=== PATIENT | male | born 1935 | race Asian ===

== ENCOUNTER 2020-03-31 19:33 | Inpatient (IN) | payer OTHER ==
[~2020-03-31] VITALS: Ht 170.2 cm; Wt 60.3 kg
[2020-03-31] MEDS ORDERED: METF-960 PO (19:39)
[2020-03-31] MEDS ORDERED: AMLO2.5T96 PO (19:39)
[2020-03-31] MEDS ORDERED: LOSA50TA37 PO (19:39)
[2020-03-31] MEDS ORDERED: ACETAMINOPHEN 500 MG TABLET PO ONE (20:30)
[2020-03-31 20:45] LABS: COVID AG,FIA SOURCE NASOPHARYNGEAL
[2020-03-31 21:24] LABS: INFLUENZA TYPE A NEGATIVE FOR TYPE A (NEGATIVE); INFLUENZA TYPE B NEGATIVE FOR TYPE B (NEGATIVE)
[2020-04-01 00:37] LABS: BASOPHILS % (AUTO) 0.8 % (0.0-2.0); EOSINOPHILS % (AUTO) 0.1 % (1.0-6.0); HEMATOCRIT 33.3 % (41-53); HEMOGLOBIN 11.9 g/dL (13.5-17.5); LYMPHOCYTES # (AUTO) 0.8 K/uL (1.0-4.8); MEAN CORPUSCULAR HGB CONC 35.6 G/dL (31.0-37.0); MEAN CORPUSCULAR VOLUME 79 fL (80-100); MONOCYTES # (AUTO) 0.5 K/uL (0.1-1.0); NEUTROPHILS # (AUTO) 3.4 K/uL (1.8-7.7); NEUTROPHILS % (AUTO) 72.1 % (40.0-70.0); RED BLOOD CELL COUNT(AUTO) 4.23 MIL/uL (4.50-5.90); RED CELL DISTRIBUTION WIDTH 13.6 % (11.5-14.5)
[2020-04-01 00:40] LABS: CALCIUM, TOTAL 8.4 mg/dL (8.8-10.5); CREATININE 1.23 mg/dL (0.60-1.30); POTASSIUM 3.3 mmol/L (3.5-5.1)
[2020-04-01 00:49] LABS: ALBUMIN 3.1 g/dL (3.4-5.0); BILIRUBIN,TOTAL 0.8 mg/dL (0.1-1.0); TOTAL PROTEIN, SERUM 7.1 g/dL (6.4-8.2)
[2020-04-01 00:56] LABS: PLATELET COUNT (AUTO) 70 K/uL (150-450)
[2020-04-01] MEDS ORDERED: DEXAMETHASONE SOD PHOS 4 MG/ML VIAL IVP ONE (01:45)
[2020-04-01 02:24] LABS: ALBUMIN 3.4 g/dL (3.4-5.0); BILIRUBIN,TOTAL 0.8 mg/dL (0.1-1.0); C-REACTIVE PROTEIN QUANT 7.13 mg/dL (0.00-0.30); CALCIUM, TOTAL 8.3 mg/dL (8.8-10.5); CREATININE 1.35 mg/dL (0.60-1.30); POTASSIUM 3.5 mmol/L (3.5-5.1); TOTAL PROTEIN, SERUM 6.7 g/dL (6.4-8.2)
[2020-04-01] MEDS ORDERED: ONDANSETRON HCL 4 MG/2 ML VIAL IVP PRN ×2 (04:45→14:45)
[2020-04-01 05:37] VITALS: BP 144/78
[2020-04-01 08:10] VITALS: BP 122/58
[2020-04-01 11:21] VITALS: BP 125/69
[2020-04-01] MEDS: ACETAMINOPHEN 325 MG TABLET PO PRN ×2 (11:52→11:58)
[2020-04-01] MEDS ORDERED: MORPHINE SULFATE 2 MG/ML SYRINGE IVP PRN (14:45)
[2020-04-01] MEDS ORDERED: BISACODYL 10 MG RECTAL RECTAL SUPPOSITORY PR PRN (14:45)
[2020-04-01] MEDS ORDERED: ALBUTEROL SULFATE 2.5 MG/0.5 ML NEB SOLUTION NEB PRN (14:45)
[2020-04-01] MEDS ORDERED: IPRATROPIUM BROMIDE 0.5 MG/2.5 ML NEB SOLUTION NEB PRN (14:45)
[2020-04-01 15:43] VITALS: BP 122/61
[2020-04-01] MEDS: LOSARTAN POTASSIUM 50 MG TABLET PO SCH (16:08)
[2020-04-01] MEDS: HEPARIN SODIUM,PORCINE 5,000 UNITS/ML VIAL SQ SCH ×2 (16:08→23:47)
[2020-04-01 20:25] VITALS: BP 130/69
[2020-04-01] MEDS: AmLODIPine BESYLATE 2.5 MG TABLET PO SCH (21:29)
[2020-04-01] MEDS: DOCUSATE SODIUM 100 MG CAPSULE PO SCH (21:29)
[2020-04-02 00:11] VITALS: BP 148/70
[2020-04-02 00:48] LABS: GLUCOMETER DEV NAME(LOC) 6N.2; GLUCOSE,POINT OF CARE 201 MG/DL (70-110)
[2020-04-02] MEDS: ZOLPIDEM TARTRATE 5 MG TABLET PO PRN (01:31)
[2020-04-02] MEDS: ACETAMINOPHEN 325 MG TABLET PO PRN ×2 (01:31→05:22)
[2020-04-02 04:26] VITALS: BP 124/54
[2020-04-02 06:12] LABS: APPEARANCE,URINE CLEAR (CLEAR); BILIRUBIN,URINE NEGATIVE (NEGATIVE); GLUCOSE, URINE (UA) 500 mg/dL (NEGATIVE); KETONES,URINE NEGATIVE (NEGATIVE); LEUKOCYTE ESTERASE ,URINE NEGATIVE (NEGATIVE); NITRATE,URINE NEGATIVE (NEGATIVE); OCCULT BLOOD,URINE SMALL (NEGATIVE); PH,URINE 5.5 (5.0-8.0); PROTEIN,URINE SEE CONFIRM (NEGATIVE); UROBILINOGEN,URINE 0.2 mg/dL (<=1.0)
[2020-04-02 06:20] LABS: BACTERIA,URINE None Seen /HPF (None Seen); SQUAMOUS EPITHELIAL CELL,UR Rare /LPF (None Seen); SULFOSALICYLIC ACID,URINE 1+ (Negative)
[2020-04-02 07:12] LABS: BASOPHILS % (AUTO) 0.3 % (0.0-2.0); EOSINOPHILS % (AUTO) 0 % (1.0-6.0); HEMOGLOBIN 11.5 g/dL (13.5-17.5); LYMPHOCYTES # (AUTO) 0.7 K/uL (1.0-4.8); LYMPHOCYTES % (AUTO) 7.6 % (22.0-44.0); MEAN CORPUSCULAR HEMOGLOBIN 28.3 pg (26.0-34.0); MEAN CORPUSCULAR HGB CONC 35.9 G/dL (31.0-37.0); MEAN CORPUSCULAR VOLUME 79 fL (80-100); MONOCYTES # (AUTO) 0.4 K/uL (0.1-1.0); MONOCYTES % (AUTO) 4.6 % (2.0-9.0); PLATELET COUNT (AUTO) 84 K/uL (150-450); RED BLOOD CELL COUNT(AUTO) 4.06 MIL/uL (4.50-5.90); RED CELL DISTRIBUTION WIDTH 13.8 % (11.5-14.5)
[2020-04-02 07:17] LABS: NEUTROPHILS % (AUTO) 87.5 % (40.0-70.0)
[2020-04-02 07:35] LABS: ALBUMIN 3.1 g/dL (3.4-5.0); BILIRUBIN,TOTAL 0.5 mg/dL (0.1-1.0); CALCIUM, TOTAL 8.5 mg/dL (8.8-10.5); CREATININE 1.17 mg/dL (0.60-1.30); POTASSIUM 3.3 mmol/L (3.5-5.1); TOTAL PROTEIN, SERUM 6.9 g/dL (6.4-8.2)
[2020-04-02 07:58] LABS: C-REACTIVE PROTEIN QUANT 7.27 mg/dL (0.00-0.30)
[2020-04-02 08:00] VITALS: BP 116/51
[2020-04-02] MEDS: HEPARIN SODIUM,PORCINE 5,000 UNITS/ML VIAL SQ SCH ×2 (08:10→17:57)
[2020-04-02] MEDS: LOSARTAN POTASSIUM 50 MG TABLET PO SCH (08:11)
[2020-04-02] MEDS: DOCUSATE SODIUM 100 MG CAPSULE PO SCH ×2 (08:11→20:34)
[2020-04-02 08:52] LABS: GLUCOMETER DEV NAME(LOC) 6N.2; GLUCOSE,POINT OF CARE 134 MG/DL (70-110)
[2020-04-02] MEDS ORDERED: DEXAMETHASONE 4 MG TABLET PO SCH (09:00)
[2020-04-02] MEDS ORDERED: DEXTROSE 50%-WATER 25 GM/50 ML SYRINGE IVP PRN (12:15)
[2020-04-02] MEDS ORDERED: HEPARIN SODIUM,PORCINE 5,000 UNITS/ML VIAL IVP PRN (12:30)
[2020-04-02] MEDS ORDERED: POTASSIUM CHL 10 MEQ/WATER 50 ML IV PRN (12:45)
[2020-04-02] MEDS ORDERED: POTASSIUM CHLORIDE 20 MEQ ER TABLET PO PRN (12:45)
[2020-04-02] MEDS: INSULIN LISPRO 100 UNITS/ML SQ PRN ×3 (13:15→22:32)
[2020-04-02 13:18] LABS: GLUCOMETER DEV NAME(LOC) 6S.1; GLUCOSE,POINT OF CARE 250 MG/DL (70-110)
[2020-04-02 13:24] LABS: BASOPHILS % (AUTO) 0.3 % (0.0-2.0); EOSINOPHILS % (AUTO) 0 % (1.0-6.0); HEMATOCRIT 37.2 % (41-53); HEMOGLOBIN 12.8 g/dL (13.5-17.5); LYMPHOCYTES # (AUTO) 0.4 K/uL (1.0-4.8); LYMPHOCYTES % (AUTO) 3.7 % (22.0-44.0); MEAN CORPUSCULAR HEMOGLOBIN 27.6 pg (26.0-34.0); MEAN CORPUSCULAR HGB CONC 34.4 G/dL (31.0-37.0); MEAN CORPUSCULAR VOLUME 80 fL (80-100); MONOCYTES # (AUTO) 0.3 K/uL (0.1-1.0); MONOCYTES % (AUTO) 2.7 % (2.0-9.0); NEUTROPHILS # (AUTO) 9.5 K/uL (1.8-7.7); NEUTROPHILS % (AUTO) 93.3 % (40.0-70.0); PLATELET COUNT (AUTO) 100 K/uL (150-450); RED BLOOD CELL COUNT(AUTO) 4.64 MIL/uL (4.50-5.90)
[2020-04-02] MEDS ORDERED: POTASSIUM CHLORIDE 20 MEQ ER TABLET PO ONE (13:30)
[2020-04-02 13:37] LABS: PROTHROMBIN TIME 10.2 SEC (9.4-11.6)
[2020-04-02 18:19] LABS: GLUCOMETER DEV NAME(LOC) 6N.2; GLUCOSE,POINT OF CARE 238 MG/DL (70-110)
[2020-04-02 19:45] VITALS: BP 138/59
[2020-04-02] MEDS: AmLODIPine BESYLATE 2.5 MG TABLET PO SCH (20:34)
[2020-04-02] MEDS ORDERED: SODIUM CHLORIDE 0.9% 0 ML IV ONE (23:14)
[2020-04-02 23:30] VITALS: BP 136/62
[2020-04-03] MEDS: HEPARIN SODIUM 25000 UNITS/D5W 250 ML IV PRN ×2 (00:32→08:52)
[2020-04-03 04:30] VITALS: BP 136/61
[2020-04-03 05:25] LABS: GLUCOMETER DEV NAME(LOC) 6S.1; GLUCOSE,POINT OF CARE 262 MG/DL (70-110)
[2020-04-03] MEDS: INSULIN LISPRO 100 UNITS/ML SQ PRN ×4 (05:31→20:24)
[2020-04-03 06:55] LABS: BASOPHILS % (AUTO) 0.2 % (0.0-2.0); EOSINOPHILS % (AUTO) 0 % (1.0-6.0); HEMATOCRIT 33.5 % (41-53); HEMOGLOBIN 11.9 g/dL (13.5-17.5); LYMPHOCYTES # (AUTO) 0.6 K/uL (1.0-4.8); LYMPHOCYTES % (AUTO) 6.7 % (22.0-44.0); MEAN CORPUSCULAR HEMOGLOBIN 28.3 pg (26.0-34.0); MEAN CORPUSCULAR HGB CONC 35.5 G/dL (31.0-37.0); MEAN CORPUSCULAR VOLUME 80 fL (80-100); MONOCYTES # (AUTO) 0.4 K/uL (0.1-1.0); NEUTROPHILS # (AUTO) 7.7 K/uL (1.8-7.7); PLATELET COUNT (AUTO) 92 K/uL (150-450); RED CELL DISTRIBUTION WIDTH 14.1 % (11.5-14.5)
[2020-04-03 07:20] LABS: NEUTROPHILS % (AUTO) 88.1 % (40.0-70.0)
[2020-04-03 07:41] LABS: BILIRUBIN,TOTAL 0.5 mg/dL (0.1-1.0); C-REACTIVE PROTEIN QUANT 12.16 mg/dL (0.00-0.30); CALCIUM, TOTAL 8.5 mg/dL (8.8-10.5); CREATININE 1.46 mg/dL (0.60-1.30); POTASSIUM 3.9 mmol/L (3.5-5.1); TOTAL PROTEIN, SERUM 7.1 g/dL (6.4-8.2)
[2020-04-03 07:52] LABS: D-DIMER 0.95 mg/L FEU (0.00-0.50)
[2020-04-03 08:05] VITALS: BP 133/69
[2020-04-03] MEDS: DEXAMETHASONE 2 MG TABLET PO SCH (08:46)
[2020-04-03] MEDS: LOSARTAN POTASSIUM 50 MG TABLET PO SCH (08:46)
[2020-04-03] MEDS: DOCUSATE SODIUM 100 MG CAPSULE PO SCH ×2 (08:46→20:24)
[2020-04-03] MEDS ORDERED: SODIUM CHLORIDE 0.9% 1,000 ML IV ONE (10:45)
[2020-04-03] MEDS ORDERED: REMDESIVIR (EUA) 200 MG in SODIUM CHLORIDE 0.9% 210 ML IV ONE (11:00)
[2020-04-03 12:49] VITALS: BP 132/71
[2020-04-03 16:21] VITALS: BP 119/60
[2020-04-03 20:16] VITALS: BP 119/58
[2020-04-03] MEDS: ASCORBIC ACID 500 MG TABLET PO SCH (20:23)
[2020-04-03] MEDS: ZINC SULFATE 220 MG CAPSULE PO SCH (20:23)
[2020-04-03] MEDS: AmLODIPine BESYLATE 2.5 MG TABLET PO SCH (20:24)
[2020-04-03] MEDS ORDERED: CHOLECALCIFEROL (VIT D3) 1,000 UNITS [25 MCG] TABLET PO ONE (21:00)
[2020-04-04 00:05] LABS: GLUCOMETER DEV NAME(LOC) 6S.1; GLUCOSE,POINT OF CARE 327 MG/DL (70-110)
[2020-04-04 00:05] LABS: GLUCOMETER DEV NAME(LOC) 6N.2; GLUCOSE,POINT OF CARE 360 MG/DL (70-110)
[2020-04-04 00:05] LABS: GLUCOMETER DEV NAME(LOC) 6N.2; GLUCOSE,POINT OF CARE 218 MG/DL (70-110)
[2020-04-04 00:05] LABS: GLUCOMETER DEV NAME(LOC) 6N.2; GLUCOSE,POINT OF CARE 220 MG/DL (70-110)
[2020-04-04] MEDS: HEPARIN SODIUM 25000 UNITS/D5W 250 ML IV PRN ×4 (03:36→15:47)
[2020-04-04 03:59] VITALS: BP 133/59
[2020-04-04] MEDS: INSULIN LISPRO 100 UNITS/ML SQ PRN ×4 (05:13→20:19)
[2020-04-04 06:02] LABS: BASOPHILS % (AUTO) 0.2 % (0.0-2.0); EOSINOPHILS % (AUTO) 0 % (1.0-6.0); HEMATOCRIT 36.5 % (41-53); HEMOGLOBIN 12.6 g/dL (13.5-17.5); LYMPHOCYTES # (AUTO) 0.7 K/uL (1.0-4.8); LYMPHOCYTES % (AUTO) 6.8 % (22.0-44.0); MEAN CORPUSCULAR HEMOGLOBIN 27.6 pg (26.0-34.0); MEAN CORPUSCULAR HGB CONC 34.5 G/dL (31.0-37.0); MEAN CORPUSCULAR VOLUME 80 fL (80-100); MONOCYTES # (AUTO) 0.5 K/uL (0.1-1.0); NEUTROPHILS # (AUTO) 8.7 K/uL (1.8-7.7); PLATELET COUNT (AUTO) 118 K/uL (150-450); RED BLOOD CELL COUNT(AUTO) 4.55 MIL/uL (4.50-5.90); RED CELL DISTRIBUTION WIDTH 14.2 % (11.5-14.5)
[2020-04-04 06:20] LABS: GLUCOMETER DEV NAME(LOC) 6S.1; GLUCOSE,POINT OF CARE 202 MG/DL (70-110)
[2020-04-04 06:47] LABS: D-DIMER 1.18 mg/L FEU (0.00-0.50)
[2020-04-04 07:23] LABS: ALBUMIN 2.7 g/dL (3.4-5.0); BILIRUBIN,TOTAL 0.5 mg/dL (0.1-1.0); C-REACTIVE PROTEIN QUANT 12.9 mg/dL (0.00-0.30); CALCIUM, TOTAL 9.2 mg/dL (8.8-10.5); CREATININE 1.39 mg/dL (0.60-1.30); POTASSIUM 5.2 mmol/L (3.5-5.1); TOTAL PROTEIN, SERUM 7.4 g/dL (6.4-8.2)
[2020-04-04 08:12] VITALS: BP 124/63
[2020-04-04] MEDS: DOCUSATE SODIUM 100 MG CAPSULE PO SCH ×2 (08:26→20:18)
[2020-04-04] MEDS: CHOLECALCIFEROL (VIT D3) 1,000 UNITS [25 MCG] TABLET PO SCH (08:26)
[2020-04-04] MEDS: ZINC SULFATE 220 MG CAPSULE PO SCH ×2 (08:26→20:18)
[2020-04-04] MEDS: LOSARTAN POTASSIUM 50 MG TABLET PO SCH (08:27)
[2020-04-04] MEDS: ASCORBIC ACID 500 MG TABLET PO SCH ×2 (08:27→20:18)
[2020-04-04] MEDS: HEPARIN SODIUM,PORCINE 5,000 UNITS/ML VIAL IVP PRN ×2 (08:27→15:42)
[2020-04-04] MEDS: DEXAMETHASONE 2 MG TABLET PO SCH (08:27)
[2020-04-04] MEDS ORDERED: SODIUM POLYSTYRENE SULFONATE 15 GM/60 ML SUSPENSION BOTTLE PO ONE (11:15)
[2020-04-04] MEDS: REMDESIVIR (EUA) 100 MG in SODIUM CHLORIDE 0.9% 230 ML IV SCH (11:41)
[2020-04-04 11:43] VITALS: BP 122/53
[2020-04-04 15:37] VITALS: BP 140/65
[2020-04-04 19:30] VITALS: BP 136/64
[2020-04-04] MEDS: FAMOTIDINE 20 MG TABLET PO SCH (20:18)
[2020-04-04] MEDS: AmLODIPine BESYLATE 2.5 MG TABLET PO SCH (20:18)
[2020-04-04 20:26] LABS: GLUCOMETER DEV NAME(LOC) 6S.1; GLUCOSE,POINT OF CARE 302 MG/DL (70-110)
[2020-04-05 05:00] VITALS: BP 131/51
[2020-04-05] MEDS: INSULIN LISPRO 100 UNITS/ML SQ PRN ×4 (05:31→20:42)
[2020-04-05 06:04] LABS: GLUCOMETER DEV NAME(LOC) 6N.2; GLUCOSE,POINT OF CARE 321 MG/DL (70-110)
[2020-04-05 06:04] LABS: GLUCOMETER DEV NAME(LOC) 6N.2; GLUCOSE,POINT OF CARE 251 MG/DL (70-110)
[2020-04-05 07:20] LABS: BASOPHILS % (AUTO) 0.3 % (0.0-2.0); EOSINOPHILS % (AUTO) 0 % (1.0-6.0); HEMATOCRIT 36.2 % (41-53); HEMOGLOBIN 12.4 g/dL (13.5-17.5); LYMPHOCYTES # (AUTO) 0.6 K/uL (1.0-4.8); LYMPHOCYTES % (AUTO) 5.5 % (22.0-44.0); MEAN CORPUSCULAR HEMOGLOBIN 27.6 pg (26.0-34.0); MEAN CORPUSCULAR HGB CONC 34.3 G/dL (31.0-37.0); MEAN CORPUSCULAR VOLUME 80 fL (80-100); MONOCYTES # (AUTO) 0.4 K/uL (0.1-1.0); MONOCYTES % (AUTO) 3.9 % (2.0-9.0); NEUTROPHILS # (AUTO) 9.5 K/uL (1.8-7.7); PLATELET COUNT (AUTO) 150 K/uL (150-450); RED CELL DISTRIBUTION WIDTH 14.3 % (11.5-14.5)
[2020-04-05 07:35] VITALS: BP 128/62
[2020-04-05 07:48] LABS: D-DIMER 1.22 mg/L FEU (0.00-0.50)
[2020-04-05 07:53] LABS: ALBUMIN 2.7 g/dL (3.4-5.0); BILIRUBIN,TOTAL 0.5 mg/dL (0.1-1.0); C-REACTIVE PROTEIN QUANT 8.51 mg/dL (0.00-0.30); CALCIUM, TOTAL 8.5 mg/dL (8.8-10.5); CREATININE 1.2 mg/dL (0.60-1.30); POTASSIUM 3.3 mmol/L (3.5-5.1); TOTAL PROTEIN, SERUM 7.1 g/dL (6.4-8.2)
[2020-04-05] MEDS: FAMOTIDINE 20 MG TABLET PO SCH ×2 (08:08→20:15)
[2020-04-05] MEDS: LOSARTAN POTASSIUM 50 MG TABLET PO SCH (08:08)
[2020-04-05] MEDS: DOCUSATE SODIUM 100 MG CAPSULE PO SCH ×2 (08:08→20:15)
[2020-04-05] MEDS: DEXAMETHASONE 2 MG TABLET PO SCH (08:08)
[2020-04-05] MEDS: ZINC SULFATE 220 MG CAPSULE PO SCH ×2 (08:09→20:15)
[2020-04-05] MEDS: ASCORBIC ACID 500 MG TABLET PO SCH ×2 (08:09→20:15)
[2020-04-05] MEDS: CHOLECALCIFEROL (VIT D3) 1,000 UNITS [25 MCG] TABLET PO SCH (08:11)
[2020-04-05 08:17] LABS: NEUTROPHILS % (AUTO) 90.3 % (40.0-70.0)
[2020-04-05] MEDS: REMDESIVIR (EUA) 100 MG in SODIUM CHLORIDE 0.9% 230 ML IV SCH (11:24)
[2020-04-05 11:30] VITALS: BP 144/68
[2020-04-05] MEDS ORDERED: SODIUM CHLORIDE 0.9% 250 ML IV ONE (11:31)
[2020-04-05 11:41] LABS: GLUCOMETER DEV NAME(LOC) 6S.1; GLUCOSE,POINT OF CARE 300 MG/DL (70-110)
[2020-04-05 11:49] VITALS: BP 144/65
[2020-04-05 13:31] VITALS: BP 145/63
[2020-04-05] MEDS: HEPARIN SODIUM 25000 UNITS/D5W 250 ML IV PRN (14:56)
[2020-04-05] MEDS ORDERED: SODIUM CHLORIDE 0.9% 1,000 ML ONE (14:59)
[2020-04-05 15:02] LABS: SOURCE, BLOOD GAS ARTERIAL; TEMPERATURE, FAHRENHEIT, BG 98.2 FAHREN (96.0-98.6)
[2020-04-05 15:11] LABS: ABG A-A DIFF O2 392.8 mmHg (10-20.0); ABG BASE EXCESS -2.2 mmol/L (-2.0-3.0); ABG CARBOXYHEMOGLOBIN 0.4 % (0.0-1.5); ABG HCO3 23.8 mmol/L (22.0-26.0); ABG METHEMOGLOBIN 0.2 % (0.0-1.5); ABG OXYGEN CONTENT 21.6 mL/dL (15.0-23.0); ABG OXYHEMOGLOBIN 97.4 % (94.0-100.0); ABG PCO2 29 mmHg (35-45); ABG PH 7.488 (7.35-7.450); ABG TOTAL HEMOGLOBIN 15.7 G/dL (12.0-18.0); PO2, ARTERIAL BG 104.8 mmHg (71.0-79.0)
[2020-04-05 15:17] LABS: O2 DEVICE,BLOOD GAS HFNC (ROOM AIR); SITE, BLOOD GAS RT RADIAL
[2020-04-05] MEDS: AmLODIPine BESYLATE 2.5 MG TABLET PO SCH (20:15)
[2020-04-05 20:25] VITALS: BP 139/77
[2020-04-06] VITALS (11 sets, daily range): BP systolic 106–141; BP diastolic 50–69
[2020-04-06 00:29] LABS: GLUCOMETER DEV NAME(LOC) 5S.2B; GLUCOSE,POINT OF CARE 278 MG/DL (70-110)
[2020-04-06] MEDS: INSULIN LISPRO 100 UNITS/ML SQ PRN ×4 (06:03→21:43)
[2020-04-06 06:35] LABS: D-DIMER 1.45 mg/L FEU (0.00-0.50)
[2020-04-06 07:33] LABS: ALANINE AMINOTRANSFERASE 33 U/L (12-78); ALBUMIN 2.8 g/dL (3.4-5.0); ALKALINE PHOSPHATASE 84 U/L (46-116); ANION GAP 9 mmol/L (8-16); ASPARTATE AMINOTRANSFERASE 25 U/L (15-37); BILIRUBIN,TOTAL 0.7 mg/dL (0.1-1.0); C-REACTIVE PROTEIN QUANT 7.48 mg/dL (0.00-0.30); CALCIUM, TOTAL 8.7 mg/dL (8.8-10.5); CARBON DIOXIDE 24 mmol/L (22-29); CHLORIDE 99 mmol/L (98-107); CREATININE 1.13 mg/dL (0.60-1.30); FERRITIN 1778 ng/mL (26-388); GLUCOSE,RANDOM 164 mg/dL (70-110); POTASSIUM 3.8 mmol/L (3.5-5.1); SODIUM SERUM 132 mmol/L (136-145); UREA NITROGEN, BLOOD 27 mg/dL (7-18)
[2020-04-06 07:35] LABS: GLOMERULAR FILTR. RATE CALC > 60 mL/min (>60)
[2020-04-06] MEDS: ASCORBIC ACID 500 MG TABLET PO SCH ×2 (08:52→20:08)
[2020-04-06] MEDS: ZINC SULFATE 220 MG CAPSULE PO SCH ×2 (08:52→20:08)
[2020-04-06] MEDS: DOCUSATE SODIUM 100 MG CAPSULE PO SCH ×2 (08:52→20:08)
[2020-04-06] MEDS: LOSARTAN POTASSIUM 50 MG TABLET PO SCH (08:52)
[2020-04-06] MEDS: HEPARIN SODIUM,PORCINE 5,000 UNITS/ML VIAL IVP PRN (08:52)
[2020-04-06] MEDS: CHOLECALCIFEROL (VIT D3) 1,000 UNITS [25 MCG] TABLET PO SCH (08:52)
[2020-04-06] MEDS: FAMOTIDINE 20 MG TABLET PO SCH (08:52)
[2020-04-06] MEDS: DEXAMETHASONE 2 MG TABLET PO SCH (08:52)
[2020-04-06 10:03] LABS: GLUCOMETER DEV NAME(LOC) 5N.1; GLUCOSE,POINT OF CARE 318 MG/DL (70-110)
[2020-04-06 10:03] LABS: GLUCOMETER DEV NAME(LOC) 5N.1; GLUCOSE,POINT OF CARE 152 MG/DL (70-110)
[2020-04-06 11:39] LABS: ABG A-A DIFF O2 461.4 mmHg (10-20.0); ABG BASE EXCESS -4.9 mmol/L (-2.0-3.0); ABG CARBOXYHEMOGLOBIN 0.5 % (0.0-1.5); ABG HCO3 21.8 mmol/L (22.0-26.0); ABG METHEMOGLOBIN 0.3 % (0.0-1.5); ABG OXYGEN CONTENT 18.1 mL/dL (15.0-23.0); ABG OXYGEN SATURATION 97.2 % (95.0-98.0); ABG OXYHEMOGLOBIN 96.4 % (94.0-100.0); ABG PCO2 24 mmHg (35-45); ABG PH 7.501 (7.35-7.450); ABG TOTAL HEMOGLOBIN 13.3 G/dL (12.0-18.0); PO2, ARTERIAL BG 84.7 mmHg (71.0-79.0); SOURCE, BLOOD GAS ARTERIAL; TEMPERATURE, FAHRENHEIT, BG 97.9 FAHREN (96.0-98.6)
[2020-04-06 11:41] LABS: O2 DEVICE,BLOOD GAS HI FL CANNULA (ROOM AIR); SITE, BLOOD GAS LFT RADIAL
[2020-04-06] MEDS: ACETAMINOPHEN 325 MG TABLET PO PRN (12:23)
[2020-04-06] MEDS: REMDESIVIR (EUA) 100 MG in SODIUM CHLORIDE 0.9% 230 ML IV SCH (14:29)
[2020-04-06] MEDS: HEPARIN SODIUM 25000 UNITS/D5W 250 ML IV PRN (17:20)
[2020-04-06 18:41] LABS: GLUCOMETER DEV NAME(LOC) 5S.2B; GLUCOSE,POINT OF CARE 348 MG/DL (70-110)
[2020-04-06 18:41] LABS: GLUCOMETER DEV NAME(LOC) 5S.2B; GLUCOSE,POINT OF CARE 322 MG/DL (70-110)
[2020-04-06] MEDS: AmLODIPine BESYLATE 2.5 MG TABLET PO SCH ×2 (20:08→20:17)
[2020-04-07] VITALS (9 sets, daily range): BP systolic 105–145; BP diastolic 49–98
[2020-04-07 05:47] LABS: EOSINOPHILS % (AUTO) 0 % (1.0-6.0); HEMATOCRIT 35.5 % (41-53); HEMOGLOBIN 12.2 g/dL (13.5-17.5); LYMPHOCYTES # (AUTO) 0.4 K/uL (1.0-4.8); LYMPHOCYTES % (AUTO) 4.4 % (22.0-44.0); MEAN CORPUSCULAR HGB CONC 34.3 G/dL (31.0-37.0); MEAN CORPUSCULAR VOLUME 82 fL (80-100); MONOCYTES # (AUTO) 0.2 K/uL (0.1-1.0); MONOCYTES % (AUTO) 2.6 % (2.0-9.0); NEUTROPHILS # (AUTO) 8.3 K/uL (1.8-7.7); PLATELET COUNT (AUTO) 160 K/uL (150-450); RED BLOOD CELL COUNT(AUTO) 4.36 MIL/uL (4.50-5.90); RED CELL DISTRIBUTION WIDTH 14.2 % (11.5-14.5)
[2020-04-07 06:04] LABS: D-DIMER 1.38 mg/L FEU (0.00-0.50)
[2020-04-07] MEDS: INSULIN LISPRO 100 UNITS/ML SQ PRN ×4 (06:24→20:59)
[2020-04-07 07:14] LABS: ALANINE AMINOTRANSFERASE 32 U/L (12-78); ALBUMIN 2.5 g/dL (3.4-5.0); ALKALINE PHOSPHATASE 78 U/L (46-116); ANION GAP 9 mmol/L (8-16); ASPARTATE AMINOTRANSFERASE 24 U/L (15-37); C-REACTIVE PROTEIN QUANT 15.59 mg/dL (0.00-0.30); CALCIUM, TOTAL 8.8 mg/dL (8.8-10.5); CARBON DIOXIDE 23 mmol/L (22-29); CHLORIDE 100 mmol/L (98-107); CREATININE 1.08 mg/dL (0.60-1.30); FERRITIN 1819 ng/mL (26-388); GLUCOSE,RANDOM 205 mg/dL (70-110); POTASSIUM 3.7 mmol/L (3.5-5.1); SODIUM SERUM 132 mmol/L (136-145); TOTAL PROTEIN, SERUM 6.8 g/dL (6.4-8.2); UREA NITROGEN, BLOOD 29 mg/dL (7-18)
[2020-04-07 07:17] LABS: GLOMERULAR FILTR. RATE CALC > 60 mL/min (>60)
[2020-04-07] MEDS: DEXAMETHASONE SOD PHOS 4 MG/ML VIAL IVP SCH (08:14)
[2020-04-07] MEDS: CHOLECALCIFEROL (VIT D3) 1,000 UNITS [25 MCG] TABLET PO SCH (08:15)
[2020-04-07] MEDS: ZINC SULFATE 220 MG CAPSULE PO SCH ×2 (08:15→20:46)
[2020-04-07] MEDS: ASCORBIC ACID 500 MG TABLET PO SCH ×2 (08:15→20:46)
[2020-04-07] MEDS: LOSARTAN POTASSIUM 50 MG TABLET PO SCH (08:15)
[2020-04-07] MEDS: DOCUSATE SODIUM 100 MG CAPSULE PO SCH ×2 (08:15→20:46)
[2020-04-07] MEDS: PANTOPRAZOLE SODIUM 40 MG DR TABLET PO SCH (08:15)
[2020-04-07] MEDS: REMDESIVIR (EUA) 100 MG in SODIUM CHLORIDE 0.9% 230 ML IV SCH (11:24)
[2020-04-07] MEDS: CefTRIAXone 1 GM/DEXTROSE 50 ML IV SCH (16:44)
[2020-04-07] MEDS: AmLODIPine BESYLATE 2.5 MG TABLET PO SCH (20:46)
[2020-04-07 22:53] LABS: GLUCOMETER DEV NAME(LOC) 5S.2B; GLUCOSE,POINT OF CARE 332 MG/DL (70-110)
[2020-04-07 22:53] LABS: GLUCOMETER DEV NAME(LOC) 5S.2B; GLUCOSE,POINT OF CARE 261 MG/DL (70-110)
[2020-04-07 22:53] LABS: GLUCOMETER DEV NAME(LOC) 5S.2B; GLUCOSE,POINT OF CARE 280 MG/DL (70-110)
[2020-04-07 22:53] LABS: GLUCOMETER DEV NAME(LOC) 5S.2B; GLUCOSE,POINT OF CARE 273 MG/DL (70-110)
[2020-04-07 22:53] LABS: GLUCOMETER DEV NAME(LOC) 5S.2B; GLUCOSE,POINT OF CARE 203 MG/DL (70-110)
[2020-04-08] VITALS (8 sets, daily range): BP systolic 112–140; BP diastolic 42–69
[2020-04-08] MEDS: INSULIN LISPRO 100 UNITS/ML SQ PRN ×4 (06:39→20:26)
[2020-04-08 07:57] LABS: BASOPHILS % (AUTO) 0.1 % (0.0-2.0); EOSINOPHILS % (AUTO) 0 % (1.0-6.0); HEMATOCRIT 34.1 % (41-53); HEMOGLOBIN 11.7 g/dL (13.5-17.5); LYMPHOCYTES # (AUTO) 0.4 K/uL (1.0-4.8); LYMPHOCYTES % (AUTO) 4.7 % (22.0-44.0); MEAN CORPUSCULAR HEMOGLOBIN 27.8 pg (26.0-34.0); MEAN CORPUSCULAR HGB CONC 34.4 G/dL (31.0-37.0); MEAN CORPUSCULAR VOLUME 81 fL (80-100); MONOCYTES # (AUTO) 0.2 K/uL (0.1-1.0); MONOCYTES % (AUTO) 2.1 % (2.0-9.0); NEUTROPHILS # (AUTO) 8.6 K/uL (1.8-7.7); PLATELET COUNT (AUTO) 170 K/uL (150-450); RED BLOOD CELL COUNT(AUTO) 4.22 MIL/uL (4.50-5.90)
[2020-04-08 08:07] LABS: NEUTROPHILS % (AUTO) 93.1 % (40.0-70.0)
[2020-04-08 08:30] LABS: GLUCOMETER DEV NAME(LOC) 5N.1; GLUCOSE,POINT OF CARE 206 MG/DL (70-110)
[2020-04-08] MEDS: LOSARTAN POTASSIUM 50 MG TABLET PO SCH ×2 (08:36→11:52)
[2020-04-08 08:51] LABS: ALANINE AMINOTRANSFERASE 21 U/L (12-78); ALBUMIN 2.3 g/dL (3.4-5.0); ALKALINE PHOSPHATASE 69 U/L (46-116); ANION GAP 9 mmol/L (8-16); ASPARTATE AMINOTRANSFERASE 20 U/L (15-37); BILIRUBIN,TOTAL 1.1 mg/dL (0.1-1.0); C-REACTIVE PROTEIN QUANT 10.87 mg/dL (0.00-0.30); CALCIUM, TOTAL 8.5 mg/dL (8.8-10.5); CARBON DIOXIDE 22 mmol/L (22-29); CHLORIDE 99 mmol/L (98-107); CREATINE KINASE, TOTAL ONLY 31 U/L (39-308); CREATININE 1.09 mg/dL (0.60-1.30); FERRITIN 1698 ng/mL (26-388); GLUCOSE,RANDOM 213 mg/dL (70-110); SODIUM SERUM 130 mmol/L (136-145); TOTAL PROTEIN, SERUM 6.6 g/dL (6.4-8.2); UREA NITROGEN, BLOOD 28 mg/dL (7-18)
[2020-04-08 08:52] LABS: GLOMERULAR FILTR. RATE CALC > 60 mL/min (>60)
[2020-04-08] MEDS: DOCUSATE SODIUM 100 MG CAPSULE PO SCH ×2 (09:03→20:03)
[2020-04-08] MEDS: CHOLECALCIFEROL (VIT D3) 1,000 UNITS [25 MCG] TABLET PO SCH (09:03)
[2020-04-08] MEDS: PANTOPRAZOLE SODIUM 40 MG DR TABLET PO SCH (09:03)
[2020-04-08] MEDS: DEXAMETHASONE SOD PHOS 4 MG/ML VIAL IVP SCH (09:03)
[2020-04-08] MEDS: ZINC SULFATE 220 MG CAPSULE PO SCH ×2 (09:03→20:03)
[2020-04-08] MEDS: ASCORBIC ACID 500 MG TABLET PO SCH ×2 (09:03→20:03)
[2020-04-08] MEDS: HEPARIN SODIUM 25000 UNITS/D5W 250 ML IV PRN (09:07)
[2020-04-08] MEDS: HEPARIN SODIUM,PORCINE 5,000 UNITS/ML VIAL IVP PRN (09:07)
[2020-04-08 12:11] LABS: GLUCOMETER DEV NAME(LOC) 5N.1; GLUCOSE,POINT OF CARE 246 MG/DL (70-110)
[2020-04-08] MEDS: CefTRIAXone 1 GM/DEXTROSE 50 ML IV SCH (15:26)
[2020-04-08 16:53] LABS: GLUCOMETER DEV NAME(LOC) 5N.1; GLUCOSE,POINT OF CARE 284 MG/DL (70-110)
[2020-04-08] MEDS: AmLODIPine BESYLATE 2.5 MG TABLET PO SCH (20:04)
[2020-04-08] MEDS: MAGNESIUM HYDROXIDE SUSPENSION 30 ML UDCUP PO PRN (20:25)
[2020-04-08 21:38] LABS: GLUCOMETER DEV NAME(LOC) 5N.1; GLUCOSE,POINT OF CARE 307 MG/DL (70-110)
[2020-04-09 00:04] VITALS: BP 125/58
[2020-04-09] MEDS ORDERED: SODIUM CHLORIDE 0.9% 250 ML IV ONE (01:08)
[2020-04-09 04:38] VITALS: BP 156/65
[2020-04-09] MEDS: INSULIN LISPRO 100 UNITS/ML SQ PRN ×4 (06:20→20:40)
[2020-04-09 08:13] LABS: BASOPHILS % (AUTO) 0.1 % (0.0-2.0); EOSINOPHILS % (AUTO) 0 % (1.0-6.0); HEMOGLOBIN 12.7 g/dL (13.5-17.5); LYMPHOCYTES # (AUTO) 0.4 K/uL (1.0-4.8); LYMPHOCYTES % (AUTO) 4.3 % (22.0-44.0); MEAN CORPUSCULAR HEMOGLOBIN 27.7 pg (26.0-34.0); MEAN CORPUSCULAR HGB CONC 34.2 G/dL (31.0-37.0); MEAN CORPUSCULAR VOLUME 81 fL (80-100); MONOCYTES # (AUTO) 0.2 K/uL (0.1-1.0); MONOCYTES % (AUTO) 2.3 % (2.0-9.0); PLATELET COUNT (AUTO) 198 K/uL (150-450); RED BLOOD CELL COUNT(AUTO) 4.58 MIL/uL (4.50-5.90); RED CELL DISTRIBUTION WIDTH 14.3 % (11.5-14.5)
[2020-04-09] MEDS: CHOLECALCIFEROL (VIT D3) 1,000 UNITS [25 MCG] TABLET PO SCH (08:23)
[2020-04-09] MEDS: DEXAMETHASONE SOD PHOS 4 MG/ML VIAL IVP SCH (08:23)
[2020-04-09] MEDS: ZINC SULFATE 220 MG CAPSULE PO SCH ×2 (08:23→20:52)
[2020-04-09] MEDS: ASCORBIC ACID 500 MG TABLET PO SCH ×2 (08:24→20:52)
[2020-04-09] MEDS: DOCUSATE SODIUM 100 MG CAPSULE PO SCH ×2 (08:24→20:52)
[2020-04-09] MEDS: PANTOPRAZOLE SODIUM 40 MG DR TABLET PO SCH (08:24)
[2020-04-09 08:26] LABS: NEUTROPHILS % (AUTO) 93.3 % (40.0-70.0)
[2020-04-09] MEDS: LOSARTAN POTASSIUM 50 MG TABLET PO SCH (08:30)
[2020-04-09 08:37] VITALS: BP 113/54
[2020-04-09 09:02] LABS: ALANINE AMINOTRANSFERASE 18 U/L (12-78); ALBUMIN 2.4 g/dL (3.4-5.0); ALKALINE PHOSPHATASE 75 U/L (46-116); ANION GAP 9 mmol/L (8-16); ASPARTATE AMINOTRANSFERASE 17 U/L (15-37); BILIRUBIN,TOTAL 1.1 mg/dL (0.1-1.0); C-REACTIVE PROTEIN QUANT 8.02 mg/dL (0.00-0.30); CALCIUM, TOTAL 8.6 mg/dL (8.8-10.5); CARBON DIOXIDE 24 mmol/L (22-29); CHLORIDE 97 mmol/L (98-107); CREATININE 1.07 mg/dL (0.60-1.30); FERRITIN 1699 ng/mL (26-388); GLUCOSE,RANDOM 220 mg/dL (70-110); POTASSIUM 4.2 mmol/L (3.5-5.1); SODIUM SERUM 130 mmol/L (136-145); UREA NITROGEN, BLOOD 29 mg/dL (7-18)
[2020-04-09 09:10] LABS: D-DIMER 1.53 mg/L FEU (0.00-0.50)
[2020-04-09 09:18] LABS: GLOMERULAR FILTR. RATE CALC > 60 mL/min (>60)
[2020-04-09 11:13] LABS: ERYTHROCYTE SEDIMENTATION RATE 61 MM/HR (0-15)
[2020-04-09 12:10] VITALS: BP 116/56
[2020-04-09 15:45] VITALS: BP 109/53
[2020-04-09] MEDS: CefTRIAXone 1 GM/DEXTROSE 50 ML IV SCH (16:38)
[2020-04-09 17:34] LABS: GLUCOMETER DEV NAME(LOC) 5N.1; GLUCOSE,POINT OF CARE 220 MG/DL (70-110)
[2020-04-09 17:34] LABS: GLUCOMETER DEV NAME(LOC) 5N.1; GLUCOSE,POINT OF CARE 245 MG/DL (70-110)
[2020-04-09 20:11] LABS: GLUCOMETER DEV NAME(LOC) 5S.2B; GLUCOSE,POINT OF CARE 294 MG/DL (70-110)
[2020-04-09 20:37] VITALS: BP 111/58
[2020-04-09] MEDS: AmLODIPine BESYLATE 2.5 MG TABLET PO SCH (20:52)
[2020-04-10 00:42] VITALS: BP 114/55
[2020-04-10 01:02] LABS: GLUCOMETER DEV NAME(LOC) 5N.1; GLUCOSE,POINT OF CARE 288 MG/DL (70-110)
[2020-04-10] MEDS: HEPARIN SODIUM 25000 UNITS/D5W 250 ML IV PRN (03:50)
[2020-04-10 05:17] VITALS: BP 119/53
[2020-04-10] MEDS: INSULIN LISPRO 100 UNITS/ML SQ PRN ×4 (06:07→20:12)
[2020-04-10 06:19] LABS: BASOPHILS % (AUTO) 0.1 % (0.0-2.0); EOSINOPHILS % (AUTO) 0.1 % (1.0-6.0); HEMATOCRIT 36.9 % (41-53); HEMOGLOBIN 12.7 g/dL (13.5-17.5); LYMPHOCYTES # (AUTO) 0.4 K/uL (1.0-4.8); LYMPHOCYTES % (AUTO) 3.3 % (22.0-44.0); MEAN CORPUSCULAR HEMOGLOBIN 27.8 pg (26.0-34.0); MEAN CORPUSCULAR HGB CONC 34.3 G/dL (31.0-37.0); MEAN CORPUSCULAR VOLUME 81 fL (80-100); MONOCYTES # (AUTO) 0.2 K/uL (0.1-1.0); NEUTROPHILS # (AUTO) 10.7 K/uL (1.8-7.7); PLATELET COUNT (AUTO) 192 K/uL (150-450); RED BLOOD CELL COUNT(AUTO) 4.55 MIL/uL (4.50-5.90); RED CELL DISTRIBUTION WIDTH 14.4 % (11.5-14.5)
[2020-04-10 06:24] LABS: D-DIMER 2.04 mg/L FEU (0.00-0.50)
[2020-04-10 06:49] LABS: GLUCOMETER DEV NAME(LOC) 5N.1; GLUCOSE,POINT OF CARE 255 MG/DL (70-110)
[2020-04-10 06:49] LABS: ALANINE AMINOTRANSFERASE 17 U/L (12-78); ALBUMIN 2.3 g/dL (3.4-5.0); ALKALINE PHOSPHATASE 72 U/L (46-116); ANION GAP 8 mmol/L (8-16); ASPARTATE AMINOTRANSFERASE 21 U/L (15-37); BILIRUBIN,TOTAL 0.8 mg/dL (0.1-1.0); C-REACTIVE PROTEIN QUANT 5.35 mg/dL (0.00-0.30); CALCIUM, TOTAL 8.6 mg/dL (8.8-10.5); CARBON DIOXIDE 23 mmol/L (22-29); CHLORIDE 95 mmol/L (98-107); CREATININE 1.12 mg/dL (0.60-1.30); GLUCOSE,RANDOM 266 mg/dL (70-110); POTASSIUM 4.5 mmol/L (3.5-5.1); SODIUM SERUM 126 mmol/L (136-145); TOTAL PROTEIN, SERUM 6.5 g/dL (6.4-8.2); UREA NITROGEN, BLOOD 32 mg/dL (7-18)
[2020-04-10 07:08] LABS: GLOMERULAR FILTR. RATE CALC > 60 mL/min (>60)
[2020-04-10 07:26] LABS: NEUTROPHILS % (AUTO) 94.5 % (40.0-70.0)
[2020-04-10 08:04] VITALS: BP 113/58
[2020-04-10] MEDS: CHOLECALCIFEROL (VIT D3) 1,000 UNITS [25 MCG] TABLET PO SCH (08:34)
[2020-04-10] MEDS: ASCORBIC ACID 500 MG TABLET PO SCH ×2 (08:34→20:05)
[2020-04-10] MEDS: DEXAMETHASONE SOD PHOS 4 MG/ML VIAL IVP SCH (08:34)
[2020-04-10] MEDS: DOCUSATE SODIUM 100 MG CAPSULE PO SCH ×2 (08:34→20:05)
[2020-04-10] MEDS: LOSARTAN POTASSIUM 50 MG TABLET PO SCH (08:34)
[2020-04-10] MEDS: ZINC SULFATE 220 MG CAPSULE PO SCH ×2 (08:34→20:05)
[2020-04-10] MEDS: PANTOPRAZOLE SODIUM 40 MG DR TABLET PO SCH (08:34)
[2020-04-10 11:23] VITALS: BP 134/56
[2020-04-10 15:11] VITALS: BP 120/52
[2020-04-10] MEDS: CefTRIAXone 1 GM/DEXTROSE 50 ML IV SCH (16:57)
[2020-04-10 19:18] LABS: GLUCOMETER DEV NAME(LOC) 5N.1; GLUCOSE,POINT OF CARE 377 MG/DL (70-110)
[2020-04-10 19:18] LABS: GLUCOMETER DEV NAME(LOC) 5S.2B; GLUCOSE,POINT OF CARE 335 MG/DL (70-110)
[2020-04-10 20:00] VITALS: BP 124/59
[2020-04-10] MEDS: AmLODIPine BESYLATE 2.5 MG TABLET PO SCH (20:05)
[2020-04-10 22:38] LABS: GLUCOMETER DEV NAME(LOC) 5N.1; GLUCOSE,POINT OF CARE 306 MG/DL (70-110)
[2020-04-11 00:15] VITALS: BP 103/50
[2020-04-11 04:20] VITALS: BP 107/51
[2020-04-11] MEDS: INSULIN LISPRO 100 UNITS/ML SQ PRN ×4 (05:59→21:25)
[2020-04-11 07:06] LABS: BASOPHILS % (AUTO) 0.1 % (0.0-2.0); EOSINOPHILS % (AUTO) 0 % (1.0-6.0); HEMATOCRIT 37.7 % (41-53); HEMOGLOBIN 12.7 g/dL (13.5-17.5); LYMPHOCYTES # (AUTO) 0.4 K/uL (1.0-4.8); LYMPHOCYTES % (AUTO) 2.8 % (22.0-44.0); MEAN CORPUSCULAR HEMOGLOBIN 27.2 pg (26.0-34.0); MEAN CORPUSCULAR HGB CONC 33.8 G/dL (31.0-37.0); MEAN CORPUSCULAR VOLUME 81 fL (80-100); MONOCYTES # (AUTO) 0.2 K/uL (0.1-1.0); MONOCYTES % (AUTO) 1.3 % (2.0-9.0); NEUTROPHILS # (AUTO) 14.7 K/uL (1.8-7.7); PLATELET COUNT (AUTO) 184 K/uL (150-450); RED BLOOD CELL COUNT(AUTO) 4.67 MIL/uL (4.50-5.90); RED CELL DISTRIBUTION WIDTH 14.2 % (11.5-14.5)
[2020-04-11 07:08] LABS: GLUCOMETER DEV NAME(LOC) 5N.1; GLUCOSE,POINT OF CARE 181 MG/DL (70-110)
[2020-04-11 07:25] LABS: D-DIMER 1.96 mg/L FEU (0.00-0.50)
[2020-04-11 07:29] LABS: NEUTROPHILS % (AUTO) 95.8 % (40.0-70.0)
[2020-04-11 07:58] LABS: ALANINE AMINOTRANSFERASE 16 U/L (12-78); ALBUMIN 2.2 g/dL (3.4-5.0); ALKALINE PHOSPHATASE 68 U/L (46-116); ASPARTATE AMINOTRANSFERASE 20 U/L (15-37); BILIRUBIN,TOTAL 0.8 mg/dL (0.1-1.0); CALCIUM, TOTAL 8.5 mg/dL (8.8-10.5); CREATININE 1.09 mg/dL (0.60-1.30); FERRITIN 976 ng/mL (26-388); GLUCOSE,RANDOM 184 mg/dL (70-110); TOTAL PROTEIN, SERUM 6.4 g/dL (6.4-8.2); UREA NITROGEN, BLOOD 30 mg/dL (7-18)
[2020-04-11] MEDS: ZINC SULFATE 220 MG CAPSULE PO SCH ×2 (08:01→21:11)
[2020-04-11] MEDS: DEXAMETHASONE SOD PHOS 4 MG/ML VIAL IVP SCH (08:01)
[2020-04-11] MEDS: CHOLECALCIFEROL (VIT D3) 1,000 UNITS [25 MCG] TABLET PO SCH (08:01)
[2020-04-11] MEDS: ASCORBIC ACID 500 MG TABLET PO SCH ×2 (08:01→21:11)
[2020-04-11] MEDS: LOSARTAN POTASSIUM 50 MG TABLET PO SCH (08:01)
[2020-04-11] MEDS: PANTOPRAZOLE SODIUM 40 MG DR TABLET PO SCH (08:01)
[2020-04-11 08:07] LABS: GLOMERULAR FILTR. RATE CALC > 60 mL/min (>60)
[2020-04-11] MEDS: DOCUSATE SODIUM 100 MG CAPSULE PO SCH ×2 (08:12→21:11)
[2020-04-11 08:17] LABS: ANION GAP 13 mmol/L (8-16); CARBON DIOXIDE 21 mmol/L (22-29); CHLORIDE 96 mmol/L (98-107); POTASSIUM 4.3 mmol/L (3.5-5.1); SODIUM SERUM 130 mmol/L (136-145)
[2020-04-11 08:32] VITALS: BP 103/49
[2020-04-11] MEDS: HEPARIN SODIUM,PORCINE 5,000 UNITS/ML VIAL IVP PRN ×2 (09:01→17:04)
[2020-04-11 12:29] VITALS: BP 119/57
[2020-04-11 12:39] LABS: ABG BASE EXCESS -2.4 mmol/L (-2.0-3.0); ABG CARBOXYHEMOGLOBIN 0.4 % (0.0-1.5); ABG HCO3 23.6 mmol/L (22.0-26.0); ABG METHEMOGLOBIN 0.3 % (0.0-1.5); ABG OXYGEN CONTENT 18.4 mL/dL (15.0-23.0); ABG OXYGEN SATURATION 96.7 % (95.0-98.0); ABG PCO2 28 mmHg (35-45); ABG PH 7.498 (7.35-7.450); ABG TOTAL HEMOGLOBIN 13.6 G/dL (12.0-18.0); PO2, ARTERIAL BG 84.1 mmHg (71.0-79.0); SOURCE, BLOOD GAS ARTERIAL
[2020-04-11 12:40] LABS: O2 DEVICE,BLOOD GAS HFNC (ROOM AIR); SITE, BLOOD GAS RT RADIAL
[2020-04-11 13:37] LABS: LEGIONELLA PNEUMO AG URINE Negative (Negative)
[2020-04-11 14:46] LABS: ORGANISM ID Not indicated.; S PNEUMO SOURCE Urine; STREP PNEUMONIAE AG URINE Negative (Negative); STREP.PNEUMO BODY FLUID CULT. Not indicated.
[2020-04-11 15:30] VITALS: BP 104/55
[2020-04-11] MEDS: CefTRIAXone 1 GM/DEXTROSE 50 ML IV SCH (17:17)
[2020-04-11] MEDS: HEPARIN SODIUM 25000 UNITS/D5W 250 ML IV PRN (17:19)
[2020-04-11 20:00] VITALS: BP 106/52
[2020-04-11] MEDS: AmLODIPine BESYLATE 2.5 MG TABLET PO SCH (21:00)
[2020-04-12] VITALS (7 sets, daily range): BP systolic 103–122; BP diastolic 42–55
[2020-04-12] MEDS: HEPARIN SODIUM,PORCINE 5,000 UNITS/ML VIAL IVP PRN ×3 (01:15→20:16)
[2020-04-12] MEDS: INSULIN LISPRO 100 UNITS/ML SQ PRN ×4 (06:12→20:57)
[2020-04-12 06:32] LABS: BASOPHILS % (AUTO) 0.1 % (0.0-2.0); EOSINOPHILS % (AUTO) 0.1 % (1.0-6.0); HEMATOCRIT 38.1 % (41-53); HEMOGLOBIN 12.7 g/dL (13.5-17.5); LYMPHOCYTES # (AUTO) 0.4 K/uL (1.0-4.8); LYMPHOCYTES % (AUTO) 2.5 % (22.0-44.0); MEAN CORPUSCULAR HGB CONC 33.3 G/dL (31.0-37.0); MEAN CORPUSCULAR VOLUME 81 fL (80-100); MONOCYTES # (AUTO) 0.2 K/uL (0.1-1.0); MONOCYTES % (AUTO) 1.7 % (2.0-9.0); NEUTROPHILS # (AUTO) 14.3 K/uL (1.8-7.7); PLATELET COUNT (AUTO) 187 K/uL (150-450); RED BLOOD CELL COUNT(AUTO) 4.69 MIL/uL (4.50-5.90); RED CELL DISTRIBUTION WIDTH 14.4 % (11.5-14.5)
[2020-04-12 07:01] LABS: GLUCOMETER DEV NAME(LOC) 5N.1; GLUCOSE,POINT OF CARE 318 MG/DL (70-110)
[2020-04-12 07:01] LABS: GLUCOMETER DEV NAME(LOC) 5N.1; GLUCOSE,POINT OF CARE 216 MG/DL (70-110)
[2020-04-12 07:06] LABS: NEUTROPHILS % (AUTO) 95.6 % (40.0-70.0)
[2020-04-12 07:23] LABS: ASPARTATE AMINOTRANSFERASE 19 U/L (15-37); CREATININE 1.01 mg/dL (0.60-1.30); FERRITIN 929 ng/mL (26-388)
[2020-04-12 07:28] LABS: GLUCOMETER DEV NAME(LOC) 5S.2B; GLUCOSE,POINT OF CARE 313 MG/DL (70-110)
[2020-04-12 07:29] LABS: GLUCOMETER DEV NAME(LOC) 5S.2B; GLUCOSE,POINT OF CARE 344 MG/DL (70-110)
[2020-04-12 07:37] LABS: ALANINE AMINOTRANSFERASE 20 U/L (12-78); ALBUMIN 2.1 g/dL (3.4-5.0); ALKALINE PHOSPHATASE 69 U/L (46-116); BILIRUBIN,TOTAL 0.8 mg/dL (0.1-1.0); C-REACTIVE PROTEIN QUANT 5.13 mg/dL (0.00-0.30); CALCIUM, TOTAL 8.4 mg/dL (8.8-10.5); GLUCOSE,RANDOM 214 mg/dL (70-110); TOTAL PROTEIN, SERUM 6.3 g/dL (6.4-8.2); UREA NITROGEN, BLOOD 33 mg/dL (7-18)
[2020-04-12 07:39] LABS: GLOMERULAR FILTR. RATE CALC > 60 mL/min (>60)
[2020-04-12 07:45] LABS: ANION GAP 10 mmol/L (8-16); CARBON DIOXIDE 24 mmol/L (22-29); CHLORIDE 96 mmol/L (98-107); POTASSIUM 4.4 mmol/L (3.5-5.1); SODIUM SERUM 130 mmol/L (136-145)
[2020-04-12] MEDS: DEXAMETHASONE SOD PHOS 4 MG/ML VIAL IVP SCH (08:59)
[2020-04-12] MEDS: ASCORBIC ACID 500 MG TABLET PO SCH ×2 (08:59→20:55)
[2020-04-12] MEDS: DOCUSATE SODIUM 100 MG CAPSULE PO SCH ×2 (08:59→20:54)
[2020-04-12] MEDS: PANTOPRAZOLE SODIUM 40 MG DR TABLET PO SCH (08:59)
[2020-04-12] MEDS: CHOLECALCIFEROL (VIT D3) 1,000 UNITS [25 MCG] TABLET PO SCH (08:59)
[2020-04-12] MEDS: LOSARTAN POTASSIUM 50 MG TABLET PO SCH (08:59)
[2020-04-12] MEDS: ZINC SULFATE 220 MG CAPSULE PO SCH ×2 (08:59→20:55)
[2020-04-12 11:35] LABS: ABG A-A DIFF O2 624.8 mmHg (10-20.0); ABG BASE EXCESS -3.2 mmol/L (-2.0-3.0); ABG CARBOXYHEMOGLOBIN 0.5 % (0.0-1.5); ABG HCO3 22.6 mmol/L (22.0-26.0); ABG METHEMOGLOBIN 0.3 % (0.0-1.5); ABG OXYGEN CONTENT 17.1 mL/dL (15.0-23.0); ABG OXYGEN SATURATION 90.6 % (95.0-98.0); ABG OXYHEMOGLOBIN 89.9 % (94.0-100.0); ABG PCO2 29 mmHg (35-45); ABG PH 7.464 (7.35-7.450); ABG TOTAL HEMOGLOBIN 13.5 G/dL (12.0-18.0); PO2, ARTERIAL BG 58.9 mmHg (71.0-79.0); SITE, BLOOD GAS LFT RADIAL; SOURCE, BLOOD GAS ARTERIAL; TEMPERATURE, FAHRENHEIT, BG 98.6 FAHREN (96.0-98.6)
[2020-04-12 11:36] LABS: O2 DEVICE,BLOOD GAS HI FL CANNULA (ROOM AIR)
[2020-04-12] MEDS: CefTRIAXone 1 GM/DEXTROSE 50 ML IV SCH (15:59)
[2020-04-12 17:03] LABS: GLUCOMETER DEV NAME(LOC) 5N.3; GLUCOSE,POINT OF CARE 254 MG/DL (70-110)
[2020-04-12 18:04] LABS: GLUCOSE,POINT OF CARE 291 MG/DL (70-110)
[2020-04-12] MEDS: AmLODIPine BESYLATE 2.5 MG TABLET PO SCH (21:13)
[2020-04-13] VITALS: BP 105/54
[2020-04-13] MEDS: HEPARIN SODIUM 25000 UNITS/D5W 250 ML IV PRN (00:26)
[2020-04-13 04:00] VITALS: BP 148/64
[2020-04-13 05:32] LABS: BASOPHILS % (AUTO) 0.3 % (0.0-2.0); EOSINOPHILS % (AUTO) 0 % (1.0-6.0); HEMATOCRIT 38.6 % (41-53); HEMOGLOBIN 12.9 g/dL (13.5-17.5); LYMPHOCYTES # (AUTO) 0.6 K/uL (1.0-4.8); LYMPHOCYTES % (AUTO) 3.1 % (22.0-44.0); MEAN CORPUSCULAR HEMOGLOBIN 27.2 pg (26.0-34.0); MEAN CORPUSCULAR HGB CONC 33.5 G/dL (31.0-37.0); MEAN CORPUSCULAR VOLUME 81 fL (80-100); MONOCYTES # (AUTO) 0.4 K/uL (0.1-1.0); MONOCYTES % (AUTO) 2.1 % (2.0-9.0); NEUTROPHILS # (AUTO) 17.7 K/uL (1.8-7.7); PLATELET COUNT (AUTO) 185 K/uL (150-450); RED BLOOD CELL COUNT(AUTO) 4.76 MIL/uL (4.50-5.90); RED CELL DISTRIBUTION WIDTH 14.5 % (11.5-14.5)
[2020-04-13 05:35] LABS: NEUTROPHILS % (AUTO) 94.5 % (40.0-70.0)
[2020-04-13 05:56] LABS: ALBUMIN 2.3 g/dL (3.4-5.0); BILIRUBIN,TOTAL 0.7 mg/dL (0.1-1.0); C-REACTIVE PROTEIN QUANT 4.45 mg/dL (0.00-0.30); CALCIUM, TOTAL 8.7 mg/dL (8.8-10.5); CREATININE 1.24 mg/dL (0.60-1.30); TOTAL PROTEIN, SERUM 6.4 g/dL (6.4-8.2)
[2020-04-13] MEDS: INSULIN LISPRO 100 UNITS/ML SQ PRN ×4 (06:25→20:03)
[2020-04-13 08:00] VITALS: BP 133/63
[2020-04-13 08:19] LABS: GLUCOSE,POINT OF CARE 242 MG/DL (70-110)
[2020-04-13 08:19] LABS: GLUCOSE,POINT OF CARE 214 MG/DL (70-110)
[2020-04-13] MEDS: DOCUSATE SODIUM 100 MG CAPSULE PO SCH ×2 (08:24→20:02)
[2020-04-13] MEDS: PANTOPRAZOLE SODIUM 40 MG DR TABLET PO SCH (08:25)
[2020-04-13] MEDS: LOSARTAN POTASSIUM 50 MG TABLET PO SCH (08:25)
[2020-04-13] MEDS: ASCORBIC ACID 500 MG TABLET PO SCH ×2 (08:25→20:02)
[2020-04-13] MEDS: DEXAMETHASONE SOD PHOS 4 MG/ML VIAL IVP SCH (08:25)
[2020-04-13] MEDS: ZINC SULFATE 220 MG CAPSULE PO SCH ×2 (08:25→20:02)
[2020-04-13] MEDS: CHOLECALCIFEROL (VIT D3) 1,000 UNITS [25 MCG] TABLET PO SCH (08:26)
[2020-04-13 12:00] VITALS: BP 132/63
[2020-04-13 15:06] LABS: GLUCOSE,POINT OF CARE 305 MG/DL (70-110)
[2020-04-13 16:00] VITALS: BP 124/61
[2020-04-13] MEDS: CefTRIAXone 1 GM/DEXTROSE 50 ML IV SCH (16:26)
[2020-04-13] MEDS ORDERED: SODIUM CHLORIDE 0.9% 250 ML IV ONE (16:29)
[2020-04-13 18:44] LABS: GLUCOSE,POINT OF CARE 265 MG/DL (70-110)
[2020-04-13 20:00] VITALS: BP 141/49
[2020-04-13] MEDS: AmLODIPine BESYLATE 2.5 MG TABLET PO SCH (20:02)
[2020-04-13 20:06] LABS: GLUCOSE,POINT OF CARE 314 MG/DL (70-110)
[2020-04-14] VITALS: BP 116/47
[2020-04-14] MEDS: HEPARIN SODIUM 25000 UNITS/D5W 250 ML IV PRN (01:19)
[2020-04-14 04:00] VITALS: BP 128/64
[2020-04-14 05:09] LABS: BASOPHILS % (AUTO) 0.3 % (0.0-2.0); EOSINOPHILS % (AUTO) 0.1 % (1.0-6.0); HEMATOCRIT 39.9 % (41-53); HEMOGLOBIN 13.3 g/dL (13.5-17.5); LYMPHOCYTES # (AUTO) 0.4 K/uL (1.0-4.8); MEAN CORPUSCULAR HEMOGLOBIN 27.3 pg (26.0-34.0); MEAN CORPUSCULAR HGB CONC 33.3 G/dL (31.0-37.0); MEAN CORPUSCULAR VOLUME 82 fL (80-100); MONOCYTES # (AUTO) 0.4 K/uL (0.1-1.0); MONOCYTES % (AUTO) 2.3 % (2.0-9.0); NEUTROPHILS # (AUTO) 17.3 K/uL (1.8-7.7); PLATELET COUNT (AUTO) 156 K/uL (150-450); RED BLOOD CELL COUNT(AUTO) 4.86 MIL/uL (4.50-5.90); RED CELL DISTRIBUTION WIDTH 14.8 % (11.5-14.5)
[2020-04-14 05:27] LABS: NEUTROPHILS % (AUTO) 95.3 % (40.0-70.0)
[2020-04-14 05:47] LABS: ANION GAP 6 mmol/L (8-16); C-REACTIVE PROTEIN QUANT 5.08 mg/dL (0.00-0.30); CALCIUM, TOTAL 8.7 mg/dL (8.8-10.5); CARBON DIOXIDE 26 mmol/L (22-29); CHLORIDE 97 mmol/L (98-107); CREATININE 1.08 mg/dL (0.60-1.30); FERRITIN 886 ng/mL (26-388); GLOMERULAR FILTR. RATE CALC > 60 mL/min (>60); GLUCOSE,RANDOM 190 mg/dL (70-110); POTASSIUM 4.8 mmol/L (3.5-5.1); SODIUM SERUM 129 mmol/L (136-145); UREA NITROGEN, BLOOD 27 mg/dL (7-18)
[2020-04-14] MEDS: INSULIN LISPRO 100 UNITS/ML SQ PRN ×4 (06:44→20:41)
[2020-04-14 07:36] LABS: GLUCOSE,POINT OF CARE 173 MG/DL (70-110)
[2020-04-14 08:00] VITALS: BP 126/59
[2020-04-14] MEDS: ZINC SULFATE 220 MG CAPSULE PO SCH ×2 (08:46→20:27)
[2020-04-14] MEDS: CHOLECALCIFEROL (VIT D3) 1,000 UNITS [25 MCG] TABLET PO SCH (08:46)
[2020-04-14] MEDS: DEXAMETHASONE SOD PHOS 4 MG/ML VIAL IVP SCH (08:46)
[2020-04-14] MEDS: ASCORBIC ACID 500 MG TABLET PO SCH ×2 (08:46→20:26)
[2020-04-14] MEDS: LOSARTAN POTASSIUM 50 MG TABLET PO SCH (08:46)
[2020-04-14] MEDS: PANTOPRAZOLE SODIUM 40 MG DR TABLET PO SCH (08:46)
[2020-04-14] MEDS: DOCUSATE SODIUM 100 MG CAPSULE PO SCH ×2 (08:46→20:26)
[2020-04-14 08:54] LABS: ABG BASE EXCESS 1.8 mmol/L (-2.0-3.0); ABG CARBOXYHEMOGLOBIN 0.6 % (0.0-1.5); ABG HCO3 26.6 mmol/L (22.0-26.0); ABG METHEMOGLOBIN 0.3 % (0.0-1.5); ABG OXYGEN CONTENT 17.6 mL/dL (15.0-23.0); ABG OXYGEN SATURATION 92.2 % (95.0-98.0); ABG OXYHEMOGLOBIN 91.4 % (94.0-100.0); ABG PCO2 30 mmHg (35-45); ABG PH 7.528 (7.35-7.450); ABG TOTAL HEMOGLOBIN 13.7 G/dL (12.0-18.0); PO2, ARTERIAL BG 60.1 mmHg (71.0-79.0); SITE, BLOOD GAS RT RADIAL; SOURCE, BLOOD GAS ARTERIAL; TEMPERATURE, FAHRENHEIT, BG 98.5 FAHREN (96.0-98.6)
[2020-04-14 08:55] LABS: O2 DEVICE,BLOOD GAS HFNC (ROOM AIR)
[2020-04-14 12:00] VITALS: BP 116/58
[2020-04-14] MEDS: CefTRIAXone 1 GM/DEXTROSE 50 ML IV SCH (15:04)
[2020-04-14 16:00] VITALS: BP 106/56
[2020-04-14 16:16] LABS: GLUCOSE,POINT OF CARE 281 MG/DL (70-110)
[2020-04-14] MEDS: DEXMEDETOMIDINE HCL 400 MCG in SODIUM CHLORIDE 0.9% 96 ML IV PRN (17:16)
[2020-04-14] MEDS ORDERED: DEXTROSE 50%-WATER 25 GM/50 ML SYRINGE IVP PRN (17:30)
[2020-04-14 19:28] LABS: GLUCOSE,POINT OF CARE 313 MG/DL (70-110)
[2020-04-14 20:00] VITALS: BP 112/56
[2020-04-14] MEDS: AmLODIPine BESYLATE 2.5 MG TABLET PO SCH (20:27)
[2020-04-15] VITALS: BP 116/53
[2020-04-15 00:49] LABS: GLUCOSE,POINT OF CARE 285 MG/DL (70-110)
[2020-04-15] MEDS: HEPARIN SODIUM 25000 UNITS/D5W 250 ML IV PRN (01:42)
[2020-04-15 04:00] VITALS: BP 118/58
[2020-04-15] MEDS ORDERED: SODIUM CHLORIDE 0.9% 250 ML IV ONE (04:34)
[2020-04-15 05:07] LABS: BASOPHILS % (AUTO) 0.3 % (0.0-2.0); EOSINOPHILS % (AUTO) 0.1 % (1.0-6.0); HEMATOCRIT 39.1 % (41-53); HEMOGLOBIN 12.9 g/dL (13.5-17.5); LYMPHOCYTES # (AUTO) 0.4 K/uL (1.0-4.8); LYMPHOCYTES % (AUTO) 2.2 % (22.0-44.0); MEAN CORPUSCULAR HGB CONC 32.9 G/dL (31.0-37.0); MEAN CORPUSCULAR VOLUME 82 fL (80-100); MONOCYTES # (AUTO) 0.5 K/uL (0.1-1.0); MONOCYTES % (AUTO) 2.6 % (2.0-9.0); NEUTROPHILS # (AUTO) 18.5 K/uL (1.8-7.7); PLATELET COUNT (AUTO) 151 K/uL (150-450); RED BLOOD CELL COUNT(AUTO) 4.78 MIL/uL (4.50-5.90); RED CELL DISTRIBUTION WIDTH 14.5 % (11.5-14.5)
[2020-04-15 05:22] LABS: D-DIMER 1.52 mg/L FEU (0.00-0.50)
[2020-04-15 05:33] LABS: ALANINE AMINOTRANSFERASE 23 U/L (12-78); ALBUMIN 2.2 g/dL (3.4-5.0); ALKALINE PHOSPHATASE 69 U/L (46-116); ANION GAP 9 mmol/L (8-16); ASPARTATE AMINOTRANSFERASE 14 U/L (15-37); BILIRUBIN,TOTAL 0.8 mg/dL (0.1-1.0); CALCIUM, TOTAL 8.4 mg/dL (8.8-10.5); CARBON DIOXIDE 24 mmol/L (22-29); CHLORIDE 96 mmol/L (98-107); CREATININE 0.98 mg/dL (0.60-1.30); FERRITIN 925 ng/mL (26-388); GLUCOSE,RANDOM 189 mg/dL (70-110); POTASSIUM 4.5 mmol/L (3.5-5.1); SODIUM SERUM 129 mmol/L (136-145); TOTAL PROTEIN, SERUM 6.2 g/dL (6.4-8.2); UREA NITROGEN, BLOOD 30 mg/dL (7-18)
[2020-04-15 05:37] LABS: NEUTROPHILS % (AUTO) 94.8 % (40.0-70.0)
[2020-04-15 05:38] LABS: GLOMERULAR FILTR. RATE CALC > 60 mL/min (>60)
[2020-04-15] MEDS: ZINC SULFATE 220 MG CAPSULE PO SCH ×2 (07:57→20:07)
[2020-04-15] MEDS: DOCUSATE SODIUM 100 MG CAPSULE PO SCH ×2 (07:57→20:07)
[2020-04-15] MEDS: LOSARTAN POTASSIUM 50 MG TABLET PO SCH (07:57)
[2020-04-15] MEDS: DEXAMETHASONE SOD PHOS 4 MG/ML VIAL IVP SCH (07:57)
[2020-04-15] MEDS: PANTOPRAZOLE SODIUM 40 MG DR TABLET PO SCH (07:57)
[2020-04-15] MEDS: ASCORBIC ACID 500 MG TABLET PO SCH ×2 (07:57→20:07)
[2020-04-15] MEDS: CHOLECALCIFEROL (VIT D3) 1,000 UNITS [25 MCG] TABLET PO SCH (07:57)
[2020-04-15 08:00] VITALS: BP 120/76
[2020-04-15 08:07] LABS: GLUCOSE,POINT OF CARE 254 MG/DL (70-110)
[2020-04-15] MEDS: INSULIN LISPRO 100 UNITS/ML SQ PRN ×3 (11:38→20:29)
[2020-04-15 12:00] VITALS: BP 120/53
[2020-04-15] MEDS: MetroNIDAZOLE 500 MG TABLET PO SCH ×2 (15:23→20:07)
[2020-04-15 16:00] VITALS: BP 99/49
[2020-04-15 19:35] LABS: GLUCOSE,POINT OF CARE 346 MG/DL (70-110)
[2020-04-15 19:35] LABS: GLUCOSE,POINT OF CARE 202 MG/DL (70-110)
[2020-04-15 20:00] VITALS: BP 123/66
[2020-04-15] MEDS: AmLODIPine BESYLATE 2.5 MG TABLET PO SCH (20:07)
[2020-04-15 20:16] LABS: GLUCOSE,POINT OF CARE 290 MG/DL (70-110)
[2020-04-16] VITALS: BP 113/47
[2020-04-16 04:00] VITALS: BP 127/58
[2020-04-16 05:09] LABS: EOSINOPHILS % (AUTO) 0.3 % (1.0-6.0); HEMATOCRIT 41.1 % (41-53); HEMOGLOBIN 13.9 g/dL (13.5-17.5); LYMPHOCYTES # (AUTO) 0.3 K/uL (1.0-4.8); LYMPHOCYTES % (AUTO) 1.7 % (22.0-44.0); MEAN CORPUSCULAR HEMOGLOBIN 27.4 pg (26.0-34.0); MEAN CORPUSCULAR HGB CONC 33.8 G/dL (31.0-37.0); MEAN CORPUSCULAR VOLUME 81 fL (80-100); MONOCYTES # (AUTO) 0.4 K/uL (0.1-1.0); MONOCYTES % (AUTO) 2.2 % (2.0-9.0); NEUTROPHILS # (AUTO) 19.2 K/uL (1.8-7.7); PLATELET COUNT (AUTO) 143 K/uL (150-450); RED BLOOD CELL COUNT(AUTO) 5.06 MIL/uL (4.50-5.90); RED CELL DISTRIBUTION WIDTH 14.8 % (11.5-14.5)
[2020-04-16 05:10] LABS: NEUTROPHILS % (AUTO) 95.8 % (40.0-70.0)
[2020-04-16 05:38] LABS: ALANINE AMINOTRANSFERASE 20 U/L (12-78); ALBUMIN 2.1 g/dL (3.4-5.0); ALKALINE PHOSPHATASE 74 U/L (46-116); ANION GAP 7 mmol/L (8-16); ASPARTATE AMINOTRANSFERASE 14 U/L (15-37); BILIRUBIN,TOTAL 0.7 mg/dL (0.1-1.0); C-REACTIVE PROTEIN QUANT 8.58 mg/dL (0.00-0.30); CALCIUM, TOTAL 8.4 mg/dL (8.8-10.5); CARBON DIOXIDE 25 mmol/L (22-29); CHLORIDE 95 mmol/L (98-107); CREATININE 1.03 mg/dL (0.60-1.30); FERRITIN 913 ng/mL (26-388); GLUCOSE,RANDOM 219 mg/dL (70-110); POTASSIUM 4.6 mmol/L (3.5-5.1); SODIUM SERUM 127 mmol/L (136-145); TOTAL PROTEIN, SERUM 6.4 g/dL (6.4-8.2); UREA NITROGEN, BLOOD 30 mg/dL (7-18)
[2020-04-16 06:08] LABS: GLOMERULAR FILTR. RATE CALC > 60 mL/min (>60)
[2020-04-16 06:19] LABS: GLUCOSE,POINT OF CARE 204 MG/DL (70-110)
[2020-04-16] MEDS: ACETAMINOPHEN 325 MG TABLET PO PRN (06:31)
[2020-04-16] MEDS: HEPARIN SODIUM 25000 UNITS/D5W 250 ML IV PRN (06:32)
[2020-04-16] MEDS: INSULIN LISPRO 100 UNITS/ML SQ PRN ×4 (06:33→20:27)
[2020-04-16 08:00] VITALS: BP 116/58
[2020-04-16] MEDS: ZINC SULFATE 220 MG CAPSULE PO SCH ×2 (10:15→20:14)
[2020-04-16] MEDS: PANTOPRAZOLE SODIUM 40 MG DR TABLET PO SCH (10:15)
[2020-04-16] MEDS: MetroNIDAZOLE 500 MG TABLET PO SCH ×3 (10:15→20:14)
[2020-04-16] MEDS: ASCORBIC ACID 500 MG TABLET PO SCH ×2 (10:15→20:14)
[2020-04-16] MEDS: DEXAMETHASONE SOD PHOS 4 MG/ML VIAL IVP SCH (10:15)
[2020-04-16] MEDS: CHOLECALCIFEROL (VIT D3) 1,000 UNITS [25 MCG] TABLET PO SCH (10:15)
[2020-04-16] MEDS: DOCUSATE SODIUM 100 MG CAPSULE PO SCH ×2 (10:15→20:14)
[2020-04-16] MEDS: LOSARTAN POTASSIUM 50 MG TABLET PO SCH (10:15)
[2020-04-16 12:00] VITALS: BP 131/62
[2020-04-16 12:19] LABS: GLUCOSE,POINT OF CARE 338 MG/DL (70-110)
[2020-04-16] MEDS: AZITHROMYCIN 500 MG/NS 250 ML IV SCH (13:32)
[2020-04-16] MEDS ORDERED: SODIUM CHLORIDE 0.9% 250 ML IV ONE (13:43)
[2020-04-16 16:00] VITALS: BP 106/50
[2020-04-16 19:16] LABS: GLUCOSE,POINT OF CARE 251 MG/DL (70-110)
[2020-04-16 20:00] VITALS: BP 119/52
[2020-04-16] MEDS: AmLODIPine BESYLATE 2.5 MG TABLET PO SCH (20:14)
[2020-04-16 23:39] LABS: GLUCOSE,POINT OF CARE 249 MG/DL (70-110)
[2020-04-17] VITALS: BP 118/60
[2020-04-17 02:30] LABS: ABG A-A DIFF O2 641.2 mmHg (10-20.0); ABG BASE EXCESS -1.4 mmol/L (-2.0-3.0); ABG CARBOXYHEMOGLOBIN 0.8 % (0.0-1.5); ABG HCO3 23.8 mmol/L (22.0-26.0); ABG METHEMOGLOBIN 0.3 % (0.0-1.5); ABG OXYGEN CONTENT 16.6 mL/dL (15.0-23.0); ABG OXYHEMOGLOBIN 79.9 % (94.0-100.0); ABG PCO2 31 mmHg (35-45); ABG PH 7.478 (7.35-7.450); ABG TOTAL HEMOGLOBIN 14.8 G/dL (12.0-18.0); SOURCE, BLOOD GAS ARTERIAL; TEMPERATURE, FAHRENHEIT, BG 98.6 FAHREN (96.0-98.6)
[2020-04-17 02:31] LABS: PO2, ARTERIAL BG 41.3 mmHg (71.0-79.0)
[2020-04-17] MEDS ORDERED: SODIUM CHLORIDE 0.9% 500 ML IV ONE (02:31)
[2020-04-17 02:32] LABS: ABG OXYGEN SATURATION 80.8 % (95.0-98.0); O2 DEVICE,BLOOD GAS HI FL CANNULA (ROOM AIR); SITE, BLOOD GAS RT RADIAL
[2020-04-17] MEDS ORDERED: RAPID SEQUENCE KIT [RSI] 1 EACH KIT ONE (02:42)
[2020-04-17] MEDS ORDERED: SUCCINYLCHOLINE CHLORIDE 20 MG/ML 10 ML VIAL ONE (02:43)
[2020-04-17] MEDS ORDERED: PROPOFOL 1000 MG/ISO-OSM 100 ML IV ONE (02:44)
[2020-04-17] MEDS: PROPOFOL 1000 MG/ISO-OSM 100 ML IV PRN ×3 (03:30→17:57)
[2020-04-17 04:00] VITALS: BP 92/35
[2020-04-17 04:40] LABS: ABG A-A DIFF O2 600.7 mmHg (10-20.0); ABG BASE EXCESS -4.7 mmol/L (-2.0-3.0); ABG HCO3 20.4 mmol/L (22.0-26.0); ABG METHEMOGLOBIN 0.3 % (0.0-1.5); ABG OXYGEN CONTENT 18.9 mL/dL (15.0-23.0); ABG OXYGEN SATURATION 91.5 % (95.0-98.0); ABG OXYHEMOGLOBIN 90.3 % (94.0-100.0); ABG PCO2 46 mmHg (35-45); ABG PH 7.297 (7.35-7.450); ABG TOTAL HEMOGLOBIN 14.9 G/dL (12.0-18.0); PO2, ARTERIAL BG 66.8 mmHg (71.0-79.0); SITE, BLOOD GAS ARTERIAL LINE; SOURCE, BLOOD GAS ARTERIAL; TEMPERATURE, FAHRENHEIT, BG 98.6 FAHREN (96.0-98.6)
[2020-04-17 04:41] LABS: O2 DEVICE,BLOOD GAS VENTILATOR (ROOM AIR); PEEP,BG 10 cm H2O; VT, ABG 450 ml
[2020-04-17 05:05] LABS: HEMOGLOBIN 13.6 g/dL (13.5-17.5); MEAN CORPUSCULAR HEMOGLOBIN 27.5 pg (26.0-34.0); MEAN CORPUSCULAR HGB CONC 33.3 G/dL (31.0-37.0); MEAN CORPUSCULAR VOLUME 83 fL (80-100); PLATELET COUNT (AUTO) 145 K/uL (150-450); RED BLOOD CELL COUNT(AUTO) 4.97 MIL/uL (4.50-5.90); RED CELL DISTRIBUTION WIDTH 14.7 % (11.5-14.5)
[2020-04-17 05:24] LABS: CALCIUM, TOTAL 8.1 mg/dL (8.8-10.5); CREATININE 1.27 mg/dL (0.60-1.30); POTASSIUM 4.7 mmol/L (3.5-5.1)
[2020-04-17 05:26] LABS: D-DIMER 3.23 mg/L FEU (0.00-0.50)
[2020-04-17 05:55] LABS: C-REACTIVE PROTEIN QUANT 13.38 mg/dL (0.00-0.30)
[2020-04-17] MEDS: HEPARIN SODIUM,PORCINE 5,000 UNITS/ML VIAL IVP PRN (06:27)
[2020-04-17] MEDS: INSULIN LISPRO 100 UNITS/ML SQ PRN ×4 (06:28→23:45)
[2020-04-17 07:00] LABS: GLUCOSE,POINT OF CARE 288 MG/DL (70-110)
[2020-04-17 08:00] VITALS: BP 121/46
[2020-04-17] MEDS ORDERED: NOREPINEPHRINE 4 MG/D5%-WATER 250 ML IV ONE (08:33)
[2020-04-17] MEDS ORDERED: SODIUM CHLORIDE 0.9% 250 ML IV ONE (08:49)
[2020-04-17] MEDS: LOSARTAN POTASSIUM 50 MG TABLET PO SCH (09:00)
[2020-04-17 09:12] LABS: BAND NEUTROPHILS % (MANUAL) 1 % (0-5); LYMPHOCYTES % (MANUAL) 1 % (22-44); MONOCYTES % (MANUAL) 1 % (2-9); SEGMENTED NEUTROPHILS % 97 % (40-70)
[2020-04-17] MEDS: CHOLECALCIFEROL (VIT D3) 1,000 UNITS [25 MCG] TABLET PO SCH (09:59)
[2020-04-17] MEDS: ZINC SULFATE 220 MG CAPSULE PO SCH ×2 (10:00→20:16)
[2020-04-17] MEDS: MetroNIDAZOLE 500 MG TABLET PO SCH ×3 (10:00→20:16)
[2020-04-17] MEDS: PANTOPRAZOLE SODIUM 40 MG DR TABLET PO SCH (10:00)
[2020-04-17] MEDS: DEXAMETHASONE SOD PHOS 4 MG/ML VIAL IVP SCH (10:00)
[2020-04-17] MEDS: ASCORBIC ACID 500 MG TABLET PO SCH ×2 (10:00→20:16)
[2020-04-17] MEDS: NOREPINEPHRINE 4 MG/D5%-WATER 250 ML IV PRN ×4 (10:01→21:15)
[2020-04-17] MEDS: DOCUSATE SODIUM 100 MG CAPSULE PO SCH ×2 (10:01→20:16)
[2020-04-17] MEDS: RINGERS SOLUTION,LACTATED 1,000 ML IV SCH (10:41)
[2020-04-17] MEDS: INSULIN GLARGINE,HUM.REC.ANLOG 100 UNITS/ML SQ SCH (10:42)
[2020-04-17] MEDS: AZITHROMYCIN 500 MG/NS 250 ML IV SCH (11:38)
[2020-04-17] MEDS: HEPARIN SODIUM 25000 UNITS/D5W 250 ML IV PRN (11:39)
[2020-04-17] MEDS: FentaNYL CITRATE PF 500 MCG in SODIUM CHLORIDE 0.9% 90 ML IV PRN ×2 (11:40→20:16)
[2020-04-17 12:00] VITALS: BP 123/46
[2020-04-17 13:32] LABS: ABG A-A DIFF O2 471.4 mmHg (10-20.0); ABG BASE EXCESS -4.9 mmol/L (-2.0-3.0); ABG CARBOXYHEMOGLOBIN 0.8 % (0.0-1.5); ABG HCO3 19.9 mmol/L (22.0-26.0); ABG METHEMOGLOBIN 0.3 % (0.0-1.5); ABG OXYGEN CONTENT 17.9 mL/dL (15.0-23.0); ABG OXYGEN SATURATION 94.6 % (95.0-98.0); ABG OXYHEMOGLOBIN 93.6 % (94.0-100.0); ABG PCO2 56 mmHg (35-45); ABG PH 7.225 (7.35-7.450); ABG TOTAL HEMOGLOBIN 13.6 G/dL (12.0-18.0); PO2, ARTERIAL BG 76.8 mmHg (71.0-79.0); SOURCE, BLOOD GAS ARTERIAL; TEMPERATURE, FAHRENHEIT, BG 98.3 FAHREN (96.0-98.6)
[2020-04-17 13:34] LABS: O2 DEVICE,BLOOD GAS VENTILATOR (ROOM AIR); PEEP,BG 10 cm H2O; SITE, BLOOD GAS ARTERIAL LINE; VT, ABG 450 ml
[2020-04-17 15:52] LABS: GLUCOSE,POINT OF CARE 237 MG/DL (70-110)
[2020-04-17 16:00] VITALS: BP 90/36
[2020-04-17] MEDS ORDERED: VASOPRESSIN 40 UNITS in DEXTROSE 5%-WATER 98 ML IV PRN (16:00)
[2020-04-17 20:00] VITALS: BP 119/40
[2020-04-17] MEDS: AmLODIPine BESYLATE 2.5 MG TABLET PO SCH (20:16)
[2020-04-17 21:44] LABS: APPEARANCE,URINE CLOUDY (CLEAR); BILIRUBIN,URINE NEGATIVE (NEGATIVE); GLUCOSE, URINE (UA) NEGATIVE (NEGATIVE); KETONES,URINE NEGATIVE (NEGATIVE); LEUKOCYTE ESTERASE ,URINE NEGATIVE (NEGATIVE); NITRATE,URINE POSITIVE (NEGATIVE); OCCULT BLOOD,URINE NEGATIVE (NEGATIVE); PROTEIN,URINE POS 1+ (NEGATIVE); UROBILINOGEN,URINE 0.2 mg/dL (<=1.0)
[2020-04-17 22:05] LABS: BACTERIA,URINE Many /HPF (None Seen); RBC,URINE 0-2 /HPF (0-2); SQUAMOUS EPITHELIAL CELL,UR Rare /LPF (None Seen); WBC,URINE 0-2 /HPF (0-5)
[2020-04-17] MEDS: PHENYLEPHRINE 200 MG/D5%-WATER 250 ML IV PRN (23:49)
[2020-04-18] VITALS: BP 133/45
[2020-04-18] MEDS: NOREPINEPHRINE 4 MG/D5%-WATER 250 ML IV PRN ×2 (01:07→20:36)
[2020-04-18] MEDS: RINGERS SOLUTION,LACTATED 1,000 ML IV SCH (02:08)
[2020-04-18 02:29] LABS: GLUCOSE,POINT OF CARE 253 MG/DL (70-110)
[2020-04-18 02:29] LABS: GLUCOSE,POINT OF CARE 240 MG/DL (70-110)
[2020-04-18] MEDS: FentaNYL CITRATE PF 500 MCG in SODIUM CHLORIDE 0.9% 90 ML IV PRN ×3 (02:41→20:05)
[2020-04-18 04:00] VITALS: BP 146/43
[2020-04-18 05:26] LABS: BASOPHILS % (AUTO) 0.3 % (0.0-2.0); EOSINOPHILS % (AUTO) 0.1 % (1.0-6.0); HEMATOCRIT 34.8 % (41-53); HEMOGLOBIN 11.8 g/dL (13.5-17.5); LYMPHOCYTES # (AUTO) 0.5 K/uL (1.0-4.8); MEAN CORPUSCULAR HEMOGLOBIN 27.8 pg (26.0-34.0); MEAN CORPUSCULAR VOLUME 82 fL (80-100); MONOCYTES # (AUTO) 1.2 K/uL (0.1-1.0); MONOCYTES % (AUTO) 4.8 % (2.0-9.0); NEUTROPHILS # (AUTO) 22.5 K/uL (1.8-7.7); PLATELET COUNT (AUTO) 150 K/uL (150-450); RED BLOOD CELL COUNT(AUTO) 4.25 MIL/uL (4.50-5.90)
[2020-04-18 05:33] LABS: NEUTROPHILS % (AUTO) 92.8 % (40.0-70.0)
[2020-04-18 05:40] LABS: D-DIMER 2.22 mg/L FEU (0.00-0.50)
[2020-04-18 05:55] LABS: ALBUMIN 1.6 g/dL (3.4-5.0); BILIRUBIN,TOTAL 0.4 mg/dL (0.1-1.0); C-REACTIVE PROTEIN QUANT 11.46 mg/dL (0.00-0.30); CALCIUM, TOTAL 7.3 mg/dL (8.8-10.5); CREATININE 1.82 mg/dL (0.60-1.30); POTASSIUM 4.9 mmol/L (3.5-5.1); TOTAL PROTEIN, SERUM 5.2 g/dL (6.4-8.2)
[2020-04-18] MEDS: PROPOFOL 1000 MG/ISO-OSM 100 ML IV PRN ×3 (06:25→21:29)
[2020-04-18] MEDS: INSULIN LISPRO 100 UNITS/ML SQ PRN (06:28)
[2020-04-18 08:00] VITALS: BP 141/43
[2020-04-18] MEDS: LOSARTAN POTASSIUM 50 MG TABLET PO SCH (09:00)
[2020-04-18] MEDS: DEXAMETHASONE SOD PHOS 4 MG/ML VIAL IVP SCH (09:41)
[2020-04-18] MEDS: ASCORBIC ACID 500 MG TABLET PO SCH ×2 (09:42→20:05)
[2020-04-18] MEDS: PANTOPRAZOLE SODIUM 40 MG DR TABLET PO SCH (09:42)
[2020-04-18] MEDS: ZINC SULFATE 220 MG CAPSULE PO SCH ×2 (09:42→20:05)
[2020-04-18] MEDS: DOCUSATE SODIUM 100 MG CAPSULE PO SCH ×2 (09:42→20:05)
[2020-04-18] MEDS: CHOLECALCIFEROL (VIT D3) 1,000 UNITS [25 MCG] TABLET PO SCH (09:42)
[2020-04-18] MEDS: MetroNIDAZOLE 500 MG TABLET PO SCH ×3 (09:42→20:05)
[2020-04-18] MEDS: INSULIN GLARGINE,HUM.REC.ANLOG 100 UNITS/ML SQ SCH (09:42)
[2020-04-18 11:08] LABS: GLUCOSE,POINT OF CARE 155 MG/DL (70-110)
[2020-04-18 12:00] VITALS: BP 139/41
[2020-04-18 12:07] LABS: ABG A-A DIFF O2 306.1 mmHg (10-20.0); ABG BASE EXCESS -5.1 mmol/L (-2.0-3.0); ABG HCO3 20.4 mmol/L (22.0-26.0); ABG METHEMOGLOBIN 0.3 % (0.0-1.5); ABG OXYGEN CONTENT 16.4 mL/dL (15.0-23.0); ABG OXYGEN SATURATION 94.2 % (95.0-98.0); ABG PCO2 44 mmHg (35-45); ABG PH 7.305 (7.35-7.450); ABG TOTAL HEMOGLOBIN 12.5 G/dL (12.0-18.0); O2 DEVICE,BLOOD GAS VENTILATOR (ROOM AIR); PEEP,BG 10 cm H2O; PO2, ARTERIAL BG 73.1 mmHg (71.0-79.0); SITE, BLOOD GAS ARTERIAL LINE; SOURCE, BLOOD GAS ARTERIAL; TEMPERATURE, FAHRENHEIT, BG 99.3 FAHREN (96.0-98.6); VT, ABG 450 ml
[2020-04-18] MEDS: AZITHROMYCIN 500 MG/NS 250 ML IV SCH (12:30)
[2020-04-18] MEDS ORDERED: *CLINICAL-CEFEPIME DOSING CLINICAL ONE (15:45)
[2020-04-18 16:00] VITALS: BP 145/43
[2020-04-18] MEDS ORDERED: CEFEPIME HCL 2 GM in DEXTROSE 5%-WATER 50 ML IV SCH (16:00)
[2020-04-18 16:21] LABS: GLUCOSE,POINT OF CARE 113 MG/DL (70-110)
[2020-04-18 20:00] VITALS: BP 136/43
[2020-04-18] MEDS: AmLODIPine BESYLATE 2.5 MG TABLET PO SCH (20:05)
[2020-04-19] VITALS: BP 138/49
[2020-04-19] MEDS: INSULIN LISPRO 100 UNITS/ML SQ PRN ×3 (00:45→12:24)
[2020-04-19] MEDS ORDERED: SODIUM CHLORIDE 0.9% 250 ML IV ONE (02:11)
[2020-04-19] MEDS ORDERED: SODIUM CHLORIDE 0.9% 500 ML IV ONE (02:12)
[2020-04-19 04:00] VITALS: BP 130/48
[2020-04-19] MEDS: FentaNYL CITRATE PF 500 MCG in SODIUM CHLORIDE 0.9% 90 ML IV PRN ×3 (05:38→17:44)
[2020-04-19] MEDS: PROPOFOL 1000 MG/ISO-OSM 100 ML IV PRN ×3 (05:39→16:57)
[2020-04-19 05:52] LABS: C-REACTIVE PROTEIN QUANT 11.53 mg/dL (0.00-0.30); CALCIUM, TOTAL 7.5 mg/dL (8.8-10.5); CREATININE 1.73 mg/dL (0.60-1.30); POTASSIUM 5.1 mmol/L (3.5-5.1)
[2020-04-19 05:58] LABS: BASOPHILS % (AUTO) 0.2 % (0.0-2.0); EOSINOPHILS % (AUTO) 0 % (1.0-6.0); HEMATOCRIT 33.3 % (41-53); LYMPHOCYTES # (AUTO) 0.3 K/uL (1.0-4.8); LYMPHOCYTES % (AUTO) 1.9 % (22.0-44.0); MEAN CORPUSCULAR HEMOGLOBIN 27.2 pg (26.0-34.0); MEAN CORPUSCULAR HGB CONC 33.2 G/dL (31.0-37.0); MEAN CORPUSCULAR VOLUME 82 fL (80-100); MONOCYTES # (AUTO) 0.8 K/uL (0.1-1.0); MONOCYTES % (AUTO) 4.5 % (2.0-9.0); PLATELET COUNT (AUTO) 124 K/uL (150-450); RED BLOOD CELL COUNT(AUTO) 4.06 MIL/uL (4.50-5.90)
[2020-04-19 06:03] LABS: NEUTROPHILS % (AUTO) 93.4 % (40.0-70.0)
[2020-04-19 06:16] LABS: GLUCOSE,POINT OF CARE 223 MG/DL (70-110)
[2020-04-19 08:00] VITALS: BP 133/49
[2020-04-19] MEDS: LOSARTAN POTASSIUM 50 MG TABLET PO SCH (08:00)
[2020-04-19] MEDS: ZINC SULFATE 220 MG CAPSULE PO SCH ×2 (08:52→21:20)
[2020-04-19] MEDS: DOCUSATE SODIUM 100 MG CAPSULE PO SCH ×2 (08:52→21:20)
[2020-04-19] MEDS: MetroNIDAZOLE 500 MG TABLET PO SCH ×3 (08:53→21:20)
[2020-04-19] MEDS: DEXAMETHASONE SOD PHOS 4 MG/ML VIAL IVP SCH (08:53)
[2020-04-19] MEDS: CHOLECALCIFEROL (VIT D3) 1,000 UNITS [25 MCG] TABLET PO SCH (08:53)
[2020-04-19] MEDS: ASCORBIC ACID 500 MG TABLET PO SCH ×2 (08:53→21:20)
[2020-04-19] MEDS: PANTOPRAZOLE SODIUM 40 MG DR TABLET PO SCH (08:53)
[2020-04-19] MEDS: INSULIN GLARGINE,HUM.REC.ANLOG 100 UNITS/ML SQ SCH (08:55)
[2020-04-19] MEDS: NOREPINEPHRINE 4 MG/D5%-WATER 250 ML IV PRN ×2 (10:43→20:05)
[2020-04-19 12:00] VITALS: BP 148/45
[2020-04-19] MEDS: AZITHROMYCIN 500 MG/NS 250 ML IV SCH (12:15)
[2020-04-19 16:00] VITALS: BP 137/44
[2020-04-19 16:53] LABS: GLUCOSE,POINT OF CARE 195 MG/DL (70-110)
[2020-04-19 16:54] LABS: GLUCOSE,POINT OF CARE 186 MG/DL (70-110)
[2020-04-19] MEDS: HEPARIN SODIUM 25000 UNITS/D5W 250 ML IV PRN (16:57)
[2020-04-19] MEDS: CLINDAMYCIN 600 MG/D5% WATER 50 ML IV SCH (16:57)
[2020-04-19 20:00] VITALS: BP 109/41
[2020-04-19] MEDS: AmLODIPine BESYLATE 2.5 MG TABLET PO SCH (21:00)
[2020-04-20] VITALS: BP 135/48
[2020-04-20] MEDS: CLINDAMYCIN 600 MG/D5% WATER 50 ML IV SCH ×4 (00:20→23:16)
[2020-04-20] MEDS: PROPOFOL 1000 MG/ISO-OSM 100 ML IV PRN ×4 (00:22→23:14)
[2020-04-20] MEDS: INSULIN LISPRO 100 UNITS/ML SQ PRN ×4 (00:28→17:41)
[2020-04-20] MEDS ORDERED: SODIUM CHLORIDE 0.9% 100 ML ONE (02:49)
[2020-04-20 04:00] VITALS: BP 111/40
[2020-04-20] MEDS: FentaNYL CITRATE PF 500 MCG in SODIUM CHLORIDE 0.9% 90 ML IV PRN ×3 (04:36→23:15)
[2020-04-20 05:04] LABS: BASOPHILS % (AUTO) 0.2 % (0.0-2.0); EOSINOPHILS % (AUTO) 0 % (1.0-6.0); HEMATOCRIT 29.8 % (41-53); LYMPHOCYTES # (AUTO) 0.2 K/uL (1.0-4.8); LYMPHOCYTES % (AUTO) 2.1 % (22.0-44.0); MEAN CORPUSCULAR HEMOGLOBIN 27.4 pg (26.0-34.0); MEAN CORPUSCULAR HGB CONC 33.4 G/dL (31.0-37.0); MEAN CORPUSCULAR VOLUME 82 fL (80-100); MONOCYTES # (AUTO) 0.6 K/uL (0.1-1.0); MONOCYTES % (AUTO) 5.7 % (2.0-9.0); NEUTROPHILS # (AUTO) 10.1 K/uL (1.8-7.7); PLATELET COUNT (AUTO) 89 K/uL (150-450); RED BLOOD CELL COUNT(AUTO) 3.63 MIL/uL (4.50-5.90)
[2020-04-20 05:28] LABS: ALBUMIN 1.5 g/dL (3.4-5.0); BILIRUBIN,TOTAL 0.4 mg/dL (0.1-1.0); CALCIUM, TOTAL 7.3 mg/dL (8.8-10.5); CREATININE 1.31 mg/dL (0.60-1.30); POTASSIUM 4.8 mmol/L (3.5-5.1); TOTAL PROTEIN, SERUM 4.7 g/dL (6.4-8.2)
[2020-04-20 08:00] VITALS: BP 138/47
[2020-04-20] MEDS: DEXAMETHASONE SOD PHOS 4 MG/ML VIAL IVP SCH (08:18)
[2020-04-20] MEDS: MetroNIDAZOLE 500 MG TABLET PO SCH ×3 (08:18→21:07)
[2020-04-20] MEDS: CHOLECALCIFEROL (VIT D3) 1,000 UNITS [25 MCG] TABLET PO SCH (08:18)
[2020-04-20] MEDS: DOCUSATE SODIUM 100 MG CAPSULE PO SCH ×2 (08:19→21:07)
[2020-04-20] MEDS: ZINC SULFATE 220 MG CAPSULE PO SCH ×2 (08:19→21:07)
[2020-04-20] MEDS: ASCORBIC ACID 500 MG TABLET PO SCH ×2 (08:19→21:07)
[2020-04-20] MEDS: PANTOPRAZOLE SODIUM 40 MG DR TABLET PO SCH (08:19)
[2020-04-20] MEDS: LOSARTAN POTASSIUM 50 MG TABLET PO SCH (08:19)
[2020-04-20] MEDS: INSULIN GLARGINE,HUM.REC.ANLOG 100 UNITS/ML SQ SCH (08:50)
[2020-04-20 12:00] VITALS: BP 128/39
[2020-04-20 15:36] LABS: ABG METHEMOGLOBIN 0.3 % (0.0-1.5); SOURCE, BLOOD GAS ARTERIAL; TEMPERATURE, FAHRENHEIT, BG 96.8 FAHREN (96.0-98.6)
[2020-04-20 15:39] LABS: ABG A-A DIFF O2 212.8 mmHg (10-20.0); ABG BASE EXCESS 0.4 mmol/L (-2.0-3.0); ABG CARBOXYHEMOGLOBIN 0.6 % (0.0-1.5); ABG HCO3 24.9 mmol/L (22.0-26.0); ABG OXYGEN CONTENT 12.6 mL/dL (15.0-23.0); ABG OXYGEN SATURATION 95.7 % (95.0-98.0); ABG OXYHEMOGLOBIN 94.8 % (94.0-100.0); ABG PCO2 35 mmHg (35-45); ABG PH 7.459 (7.35-7.450); ABG TOTAL HEMOGLOBIN 9.4 G/dL (12.0-18.0); O2 DEVICE,BLOOD GAS VENTILATOR (ROOM AIR); PEEP,BG 5 cm H2O; PO2, ARTERIAL BG 69.5 mmHg (71.0-79.0); SITE, BLOOD GAS ARTERIAL LINE; VT, ABG 450 ml
[2020-04-20 16:00] VITALS: BP 99/38
[2020-04-20] MEDS ORDERED: SODIUM CHLORIDE 0.9% 250 ML IV ONE (18:36)
[2020-04-20 20:00] VITALS: BP 144/49
[2020-04-20] MEDS: AmLODIPine BESYLATE 2.5 MG TABLET PO SCH (21:08)
[2020-04-20] MEDS ORDERED: SODIUM CHLORIDE 0.9% 500 ML IV ONE (23:08)
[2020-04-21] VITALS: BP 104/41
[2020-04-21] MEDS: INSULIN LISPRO 100 UNITS/ML SQ PRN ×2 (00:32→06:12)
[2020-04-21 04:00] VITALS: BP 158/45
[2020-04-21 05:08] LABS: BASOPHILS % (AUTO) 0.2 % (0.0-2.0); EOSINOPHILS % (AUTO) 0.3 % (1.0-6.0); HEMATOCRIT 34.5 % (41-53); HEMOGLOBIN 11.6 g/dL (13.5-17.5); LYMPHOCYTES # (AUTO) 0.5 K/uL (1.0-4.8); LYMPHOCYTES % (AUTO) 3.5 % (22.0-44.0); MEAN CORPUSCULAR HEMOGLOBIN 27.4 pg (26.0-34.0); MEAN CORPUSCULAR HGB CONC 33.7 G/dL (31.0-37.0); MEAN CORPUSCULAR VOLUME 81 fL (80-100); MONOCYTES # (AUTO) 0.6 K/uL (0.1-1.0); MONOCYTES % (AUTO) 4.1 % (2.0-9.0); NEUTROPHILS # (AUTO) 13.4 K/uL (1.8-7.7); PLATELET COUNT (AUTO) 99 K/uL (150-450); RED BLOOD CELL COUNT(AUTO) 4.25 MIL/uL (4.50-5.90); RED CELL DISTRIBUTION WIDTH 15.1 % (11.5-14.5)
[2020-04-21 05:19] LABS: ALBUMIN 1.8 g/dL (3.4-5.0); BILIRUBIN,TOTAL 0.8 mg/dL (0.1-1.0); POTASSIUM 4.2 mmol/L (3.5-5.1)
[2020-04-21 05:20] LABS: C-REACTIVE PROTEIN QUANT 3.61 mg/dL (0.00-0.30); CALCIUM, TOTAL 7.6 mg/dL (8.8-10.5); CREATININE 1.19 mg/dL (0.60-1.30); TOTAL PROTEIN, SERUM 5.4 g/dL (6.4-8.2)
[2020-04-21 05:42] LABS: NEUTROPHILS % (AUTO) 91.9 % (40.0-70.0)
[2020-04-21] MEDS: FentaNYL CITRATE PF 500 MCG in SODIUM CHLORIDE 0.9% 90 ML IV PRN ×2 (06:13→17:54)
[2020-04-21] MEDS: PROPOFOL 1000 MG/ISO-OSM 100 ML IV PRN (06:14)
[2020-04-21] MEDS: DEXMEDETOMIDINE HCL 400 MCG in SODIUM CHLORIDE 0.9% 96 ML IV PRN (07:11)
[2020-04-21 08:00] VITALS: BP 103/35
[2020-04-21] MEDS: CLINDAMYCIN 600 MG/D5% WATER 50 ML IV SCH (08:00)
[2020-04-21] MEDS: DEXAMETHASONE SOD PHOS 4 MG/ML VIAL IVP SCH (08:01)
[2020-04-21] MEDS: DOCUSATE SODIUM 100 MG CAPSULE PO SCH ×2 (08:01→21:14)
[2020-04-21] MEDS: MetroNIDAZOLE 500 MG TABLET PO SCH ×3 (08:01→21:14)
[2020-04-21] MEDS: LOSARTAN POTASSIUM 50 MG TABLET PO SCH (08:02)
[2020-04-21] MEDS: PANTOPRAZOLE SODIUM 40 MG DR TABLET PO SCH (08:02)
[2020-04-21] MEDS: ASCORBIC ACID 500 MG TABLET PO SCH ×2 (08:02→21:14)
[2020-04-21] MEDS: ZINC SULFATE 220 MG CAPSULE PO SCH ×2 (08:04→21:14)
[2020-04-21] MEDS: CHOLECALCIFEROL (VIT D3) 1,000 UNITS [25 MCG] TABLET PO SCH (08:04)
[2020-04-21] MEDS: HEPARIN SODIUM 25000 UNITS/D5W 250 ML IV PRN (08:05)
[2020-04-21] MEDS: INSULIN GLARGINE,HUM.REC.ANLOG 100 UNITS/ML SQ SCH (08:14)
[2020-04-21 12:00] VITALS: BP 178/69
[2020-04-21 13:06] LABS: ABG A-A DIFF O2 222.4 mmHg (10-20.0); ABG BASE EXCESS 2.3 mmol/L (-2.0-3.0); ABG CARBOXYHEMOGLOBIN 0.9 % (0.0-1.5); ABG HCO3 26.7 mmol/L (22.0-26.0); ABG METHEMOGLOBIN 0.3 % (0.0-1.5); ABG OXYGEN CONTENT 16.4 mL/dL (15.0-23.0); ABG OXYGEN SATURATION 92.9 % (95.0-98.0); ABG OXYHEMOGLOBIN 91.8 % (94.0-100.0); ABG PCO2 34 mmHg (35-45); ABG PH 7.493 (7.35-7.450); ABG TOTAL HEMOGLOBIN 12.7 G/dL (12.0-18.0); PO2, ARTERIAL BG 59.7 mmHg (71.0-79.0); SOURCE, BLOOD GAS ARTERIAL; TEMPERATURE, FAHRENHEIT, BG 98.6 FAHREN (96.0-98.6)
[2020-04-21 13:08] LABS: SITE, BLOOD GAS ARTERIAL LINE
[2020-04-21 13:09] LABS: O2 DEVICE,BLOOD GAS VENT (ROOM AIR); PEEP,BG 5 cm H2O; PRESSURE SUPPORT, BG 8 cm H2O; VENT MODE, BG CPAP (ROOM AIR)
[2020-04-21 13:10] LABS: VT, ABG 694 ml
[2020-04-21 16:00] VITALS: BP 115/37
[2020-04-21 20:00] VITALS: BP 93/49
[2020-04-21] MEDS: AmLODIPine BESYLATE 2.5 MG TABLET PO SCH (21:14)
[2020-04-22] VITALS: BP 164/50
[2020-04-22] MEDS: FentaNYL CITRATE PF 500 MCG in SODIUM CHLORIDE 0.9% 90 ML IV PRN ×6 (00:01→22:56)
[2020-04-22] MEDS: PROPOFOL 1000 MG/ISO-OSM 100 ML IV PRN (00:01)
[2020-04-22] MEDS: METOPROLOL SUCCINATE 25 MG ER TABLET PO SCH ×2 (03:09→20:55)
[2020-04-22 04:00] VITALS: BP 158/50
[2020-04-22 05:50] LABS: BASOPHILS % (AUTO) 0.3 % (0.0-2.0); EOSINOPHILS % (AUTO) 2.2 % (1.0-6.0); HEMATOCRIT 35.7 % (41-53); LYMPHOCYTES % (AUTO) 6.7 % (22.0-44.0); MEAN CORPUSCULAR HEMOGLOBIN 27.4 pg (26.0-34.0); MEAN CORPUSCULAR HGB CONC 33.7 G/dL (31.0-37.0); MEAN CORPUSCULAR VOLUME 81 fL (80-100); MONOCYTES # (AUTO) 0.3 K/uL (0.1-1.0); MONOCYTES % (AUTO) 1.9 % (2.0-9.0); NEUTROPHILS # (AUTO) 12.9 K/uL (1.8-7.7); PLATELET COUNT (AUTO) 85 K/uL (150-450); RED BLOOD CELL COUNT(AUTO) 4.38 MIL/uL (4.50-5.90); RED CELL DISTRIBUTION WIDTH 15.6 % (11.5-14.5)
[2020-04-22 05:56] LABS: NEUTROPHILS % (AUTO) 88.9 % (40.0-70.0)
[2020-04-22 06:33] LABS: C-REACTIVE PROTEIN QUANT 8.73 mg/dL (0.00-0.30); CALCIUM, TOTAL 7.5 mg/dL (8.8-10.5); CREATININE 1.15 mg/dL (0.60-1.30); POTASSIUM 4.3 mmol/L (3.5-5.1)
[2020-04-22] MEDS ORDERED: SODIUM CHLORIDE 0.9% 500 ML IV ONE (07:50)
[2020-04-22] MEDS: DEXMEDETOMIDINE HCL 400 MCG in SODIUM CHLORIDE 0.9% 96 ML IV PRN (07:52)
[2020-04-22 08:00] VITALS: BP 105/42
[2020-04-22] MEDS: DEXAMETHASONE SOD PHOS 4 MG/ML VIAL IVP SCH (08:16)
[2020-04-22] MEDS: CHOLECALCIFEROL (VIT D3) 1,000 UNITS [25 MCG] TABLET PO SCH (08:16)
[2020-04-22] MEDS: MetroNIDAZOLE 500 MG TABLET PO SCH ×2 (08:17→16:22)
[2020-04-22] MEDS: DOCUSATE SODIUM 100 MG CAPSULE PO SCH ×2 (08:17→20:55)
[2020-04-22] MEDS: LOSARTAN POTASSIUM 50 MG TABLET PO SCH (08:17)
[2020-04-22] MEDS: PANTOPRAZOLE SODIUM 40 MG DR TABLET PO SCH (08:17)
[2020-04-22] MEDS: ZINC SULFATE 220 MG CAPSULE PO SCH ×2 (08:18→20:55)
[2020-04-22] MEDS: ASCORBIC ACID 500 MG TABLET PO SCH ×2 (08:18→20:55)
[2020-04-22] MEDS: INSULIN GLARGINE,HUM.REC.ANLOG 100 UNITS/ML SQ SCH (08:20)
[2020-04-22 12:00] VITALS: BP 164/60
[2020-04-22] MEDS: INSULIN LISPRO 100 UNITS/ML SQ PRN ×3 (12:23→18:56)
[2020-04-22] MEDS: NOREPINEPHRINE 4 MG/D5%-WATER 250 ML IV PRN ×3 (12:37→20:55)
[2020-04-22] MEDS: LORazepam 2 MG/ML VIAL IVP PRN ×2 (13:27→21:33)
[2020-04-22] MEDS: MIDAZOLAM HCL 100 MG in DEXTROSE 5%-WATER 180 ML IV PRN (14:09)
[2020-04-22 16:00] VITALS: BP 114/38
[2020-04-22] MEDS: HEPARIN SODIUM 25000 UNITS/D5W 250 ML IV PRN (18:15)
[2020-04-22 19:17] LABS: APPEARANCE,URINE CLEAR (CLEAR); BILIRUBIN,URINE NEGATIVE (NEGATIVE); GLUCOSE, URINE (UA) 250 mg/dL (NEGATIVE); KETONES,URINE NEGATIVE (NEGATIVE); LEUKOCYTE ESTERASE ,URINE NEGATIVE (NEGATIVE); NITRATE,URINE NEGATIVE (NEGATIVE); OCCULT BLOOD,URINE NEGATIVE (NEGATIVE); PH,URINE 5.5 (5.0-8.0); PROTEIN,URINE NEGATIVE (NEGATIVE); UROBILINOGEN,URINE 0.2 mg/dL (<=1.0)
[2020-04-22 19:33] LABS: BACTERIA,URINE Rare /HPF (None Seen); RBC,URINE None Seen /HPF (0-2); SQUAMOUS EPITHELIAL CELL,UR Rare /LPF (None Seen); WBC,URINE 0-2 /HPF (0-5)
[2020-04-22 20:00] VITALS: BP 150/56
[2020-04-22] MEDS: MAGNESIUM HYDROXIDE SUSPENSION 30 ML UDCUP PO PRN (20:55)
[2020-04-22] MEDS: AmLODIPine BESYLATE 2.5 MG TABLET PO SCH (20:55)
[2020-04-23] VITALS: BP 154/42
[2020-04-23] MEDS ORDERED: SODIUM CHLORIDE 0.9% 250 ML IV ONE ×2 (00:15→09:27)
[2020-04-23] MEDS ORDERED: SODIUM CHLORIDE 0.9% 500 ML IV ONE (00:15)
[2020-04-23] MEDS: INSULIN LISPRO 100 UNITS/ML SQ PRN ×4 (00:45→17:22)
[2020-04-23] MEDS: FentaNYL CITRATE PF 500 MCG in SODIUM CHLORIDE 0.9% 90 ML IV PRN ×3 (03:22→21:52)
[2020-04-23 04:00] VITALS: BP 131/38
[2020-04-23 05:26] LABS: BASOPHILS % (AUTO) 0.5 % (0.0-2.0); EOSINOPHILS % (AUTO) 1.8 % (1.0-6.0); HEMATOCRIT 32.9 % (41-53); HEMOGLOBIN 11.1 g/dL (13.5-17.5); LYMPHOCYTES # (AUTO) 0.6 K/uL (1.0-4.8); LYMPHOCYTES % (AUTO) 4.8 % (22.0-44.0); MEAN CORPUSCULAR HEMOGLOBIN 27.8 pg (26.0-34.0); MEAN CORPUSCULAR HGB CONC 33.8 G/dL (31.0-37.0); MEAN CORPUSCULAR VOLUME 82 fL (80-100); MONOCYTES # (AUTO) 0.3 K/uL (0.1-1.0); MONOCYTES % (AUTO) 2.4 % (2.0-9.0); NEUTROPHILS # (AUTO) 11.8 K/uL (1.8-7.7); PLATELET COUNT (AUTO) 70 K/uL (150-450); RED BLOOD CELL COUNT(AUTO) 3.99 MIL/uL (4.50-5.90); RED CELL DISTRIBUTION WIDTH 15.8 % (11.5-14.5)
[2020-04-23] MEDS: LORazepam 2 MG/ML VIAL IVP PRN (05:43)
[2020-04-23 06:04] LABS: NEUTROPHILS % (AUTO) 90.5 % (40.0-70.0)
[2020-04-23 06:20] LABS: ALANINE AMINOTRANSFERASE 13 U/L (12-78); ALBUMIN 1.6 g/dL (3.4-5.0); ALKALINE PHOSPHATASE 65 U/L (46-116); ANION GAP 1 mmol/L (8-16); ASPARTATE AMINOTRANSFERASE 19 U/L (15-37); BILIRUBIN,TOTAL 0.8 mg/dL (0.1-1.0); C-REACTIVE PROTEIN QUANT 8.71 mg/dL (0.00-0.30); CALCIUM, TOTAL 7.6 mg/dL (8.8-10.5); CARBON DIOXIDE 28 mmol/L (22-29); CHLORIDE 103 mmol/L (98-107); CREATININE 1.06 mg/dL (0.60-1.30); FERRITIN 1848 ng/mL (26-388); GLUCOSE,RANDOM 196 mg/dL (70-110); POTASSIUM 4.2 mmol/L (3.5-5.1); SODIUM SERUM 132 mmol/L (136-145); UREA NITROGEN, BLOOD 29 mg/dL (7-18)
[2020-04-23 06:22] LABS: GLOMERULAR FILTR. RATE CALC > 60 mL/min (>60)
[2020-04-23] MEDS: ASCORBIC ACID 500 MG TABLET PO SCH ×2 (07:59→20:53)
[2020-04-23 08:00] VITALS: BP 140/42
[2020-04-23] MEDS: CHOLECALCIFEROL (VIT D3) 1,000 UNITS [25 MCG] TABLET PO SCH (08:00)
[2020-04-23] MEDS: MAGNESIUM HYDROXIDE SUSPENSION 30 ML UDCUP PO PRN (08:00)
[2020-04-23] MEDS: LOSARTAN POTASSIUM 50 MG TABLET PO SCH (08:00)
[2020-04-23] MEDS: DOCUSATE SODIUM 100 MG CAPSULE PO SCH ×2 (08:00→20:53)
[2020-04-23] MEDS: DEXAMETHASONE SOD PHOS 4 MG/ML VIAL IVP SCH (08:00)
[2020-04-23] MEDS: ZINC SULFATE 220 MG CAPSULE PO SCH ×2 (08:00→20:53)
[2020-04-23] MEDS: PANTOPRAZOLE SODIUM 40 MG DR TABLET PO SCH (08:00)
[2020-04-23] MEDS: INSULIN GLARGINE,HUM.REC.ANLOG 100 UNITS/ML SQ SCH (08:04)
[2020-04-23] MEDS: MIDAZOLAM HCL 100 MG in DEXTROSE 5%-WATER 180 ML IV PRN (09:30)
[2020-04-23] MEDS: DEXMEDETOMIDINE HCL 400 MCG in SODIUM CHLORIDE 0.9% 96 ML IV PRN (09:54)
[2020-04-23] MEDS: METOPROLOL SUCCINATE 25 MG ER TABLET PO SCH ×2 (09:54→20:53)
[2020-04-23 12:00] VITALS: BP 131/47
[2020-04-23] MEDS: HYDROCODONE/ACETAMINOPHEN 5-325 MG TABLET PO PRN ×2 (12:25→15:52)
[2020-04-23 16:00] VITALS: BP 146/81
[2020-04-23 20:00] VITALS: BP 159/61
[2020-04-23] MEDS: AmLODIPine BESYLATE 2.5 MG TABLET PO SCH (20:53)
[2020-04-24] VITALS (11 sets, daily range): BP systolic 116–166; BP diastolic 41–88
[2020-04-24] MEDS: INSULIN LISPRO 100 UNITS/ML SQ PRN ×5 (00:46→23:38)
[2020-04-24] MEDS: FentaNYL CITRATE PF 500 MCG in SODIUM CHLORIDE 0.9% 90 ML IV PRN ×2 (02:55→10:44)
[2020-04-24 05:07] LABS: BASOPHILS % (AUTO) 0.3 % (0.0-2.0); EOSINOPHILS % (AUTO) 1.1 % (1.0-6.0); HEMATOCRIT 34.5 % (41-53); HEMOGLOBIN 11.2 g/dL (13.5-17.5); LYMPHOCYTES # (AUTO) 0.6 K/uL (1.0-4.8); LYMPHOCYTES % (AUTO) 4.6 % (22.0-44.0); MEAN CORPUSCULAR HEMOGLOBIN 27.1 pg (26.0-34.0); MEAN CORPUSCULAR HGB CONC 32.6 G/dL (31.0-37.0); MEAN CORPUSCULAR VOLUME 83 fL (80-100); MONOCYTES # (AUTO) 0.3 K/uL (0.1-1.0); MONOCYTES % (AUTO) 2.8 % (2.0-9.0); PLATELET COUNT (AUTO) 80 K/uL (150-450); RED BLOOD CELL COUNT(AUTO) 4.14 MIL/uL (4.50-5.90); RED CELL DISTRIBUTION WIDTH 15.9 % (11.5-14.5)
[2020-04-24 05:37] LABS: NEUTROPHILS % (AUTO) 91.2 % (40.0-70.0)
[2020-04-24 05:39] LABS: D-DIMER 2.74 mg/L FEU (0.00-0.50)
[2020-04-24] MEDS: HEPARIN SODIUM,PORCINE 5,000 UNITS/ML VIAL IVP PRN (06:03)
[2020-04-24 06:15] LABS: ALANINE AMINOTRANSFERASE 13 U/L (12-78); ALBUMIN 1.6 g/dL (3.4-5.0); ALKALINE PHOSPHATASE 71 U/L (46-116); ANION GAP 1 mmol/L (8-16); ASPARTATE AMINOTRANSFERASE 18 U/L (15-37); BILIRUBIN,TOTAL 0.9 mg/dL (0.1-1.0); C-REACTIVE PROTEIN QUANT 4.84 mg/dL (0.00-0.30); CALCIUM, TOTAL 7.5 mg/dL (8.8-10.5); CARBON DIOXIDE 30 mmol/L (22-29); CHLORIDE 101 mmol/L (98-107); FERRITIN 1786 ng/mL (26-388); GLUCOSE,RANDOM 204 mg/dL (70-110); POTASSIUM 4.7 mmol/L (3.5-5.1); SODIUM SERUM 132 mmol/L (136-145); TOTAL PROTEIN, SERUM 5.3 g/dL (6.4-8.2); UREA NITROGEN, BLOOD 29 mg/dL (7-18)
[2020-04-24 06:19] LABS: GLOMERULAR FILTR. RATE CALC > 60 mL/min (>60)
[2020-04-24] MEDS: LOSARTAN POTASSIUM 50 MG TABLET PO SCH (08:28)
[2020-04-24] MEDS: ASCORBIC ACID 500 MG TABLET PO SCH ×2 (08:28→20:29)
[2020-04-24] MEDS: ZINC SULFATE 220 MG CAPSULE PO SCH ×2 (08:28→20:30)
[2020-04-24] MEDS: MAGNESIUM HYDROXIDE SUSPENSION 30 ML UDCUP PO PRN (08:28)
[2020-04-24] MEDS: DEXAMETHASONE SOD PHOS 4 MG/ML VIAL IVP SCH (08:28)
[2020-04-24] MEDS: DOCUSATE SODIUM 100 MG CAPSULE PO SCH ×2 (08:28→21:00)
[2020-04-24] MEDS: PANTOPRAZOLE SODIUM 40 MG DR TABLET PO SCH (08:28)
[2020-04-24] MEDS: CHOLECALCIFEROL (VIT D3) 1,000 UNITS [25 MCG] TABLET PO SCH (08:28)
[2020-04-24] MEDS: METOPROLOL SUCCINATE 25 MG ER TABLET PO SCH ×2 (08:28→20:30)
[2020-04-24] MEDS: INSULIN GLARGINE,HUM.REC.ANLOG 100 UNITS/ML SQ SCH (09:07)
[2020-04-24] MEDS: HYDROCODONE/ACETAMINOPHEN 5-325 MG TABLET PO PRN ×3 (09:08→20:30)
[2020-04-24] MEDS: HEPARIN SODIUM 25000 UNITS/D5W 250 ML IV PRN (13:23)
[2020-04-24 14:27] LABS: ABG A-A DIFF O2 199.2 mmHg (10-20.0); ABG BASE EXCESS 4.2 mmol/L (-2.0-3.0); ABG METHEMOGLOBIN 0.3 % (0.0-1.5); ABG OXYGEN CONTENT 16.5 mL/dL (15.0-23.0); ABG OXYGEN SATURATION 96.9 % (95.0-98.0); ABG OXYHEMOGLOBIN 95.6 % (94.0-100.0); ABG PCO2 38 mmHg (35-45); ABG PH 7.479 (7.35-7.450); ABG TOTAL HEMOGLOBIN 12.2 G/dL (12.0-18.0); PO2, ARTERIAL BG 78.9 mmHg (71.0-79.0); SOURCE, BLOOD GAS ARTERIAL; TEMPERATURE, FAHRENHEIT, BG 97.7 FAHREN (96.0-98.6)
[2020-04-24 14:29] LABS: O2 DEVICE,BLOOD GAS VENTILATOR (ROOM AIR); PEEP,BG 5 cm H2O; SITE, BLOOD GAS ARTERIAL LINE; VENT MODE, BG Press. Support Vent. (ROOM AIR)
[2020-04-24 14:30] LABS: PRESSURE SUPPORT, BG 8 cm H2O; SPONTANEOUS VT, BG 606 ml
[2020-04-24] MEDS: DOPamine HCL 400 MG/D5%-WATER 250 ML IV PRN (16:51)
[2020-04-24] MEDS: LORazepam 2 MG/ML VIAL IVP PRN ×2 (18:57→21:48)
[2020-04-24] MEDS: AmLODIPine BESYLATE 2.5 MG TABLET PO SCH (20:30)
[2020-04-24] MEDS ORDERED: SODIUM CHLORIDE 0.9% 250 ML IV ONE (23:46)
[2020-04-25] VITALS (14 sets, daily range): BP systolic 123–178; BP diastolic 74–103
[2020-04-25] MEDS: MORPHINE SULFATE 2 MG/ML SYRINGE IVP PRN ×4 (00:38→15:42)
[2020-04-25] MEDS: LORazepam 2 MG/ML VIAL IVP PRN ×6 (00:54→22:55)
[2020-04-25] MEDS: HYDROCODONE/ACETAMINOPHEN 5-325 MG TABLET PO PRN ×4 (03:21→20:04)
[2020-04-25 04:58] LABS: BASOPHILS % (AUTO) 0.1 % (0.0-2.0); EOSINOPHILS % (AUTO) 0.4 % (1.0-6.0); HEMATOCRIT 36.9 % (41-53); LYMPHOCYTES # (AUTO) 0.6 K/uL (1.0-4.8); MEAN CORPUSCULAR HEMOGLOBIN 26.9 pg (26.0-34.0); MEAN CORPUSCULAR HGB CONC 32.7 G/dL (31.0-37.0); MEAN CORPUSCULAR VOLUME 82 fL (80-100); MONOCYTES # (AUTO) 0.6 K/uL (0.1-1.0); MONOCYTES % (AUTO) 3.7 % (2.0-9.0); NEUTROPHILS # (AUTO) 13.9 K/uL (1.8-7.7); PLATELET COUNT (AUTO) 94 K/uL (150-450); RED BLOOD CELL COUNT(AUTO) 4.48 MIL/uL (4.50-5.90); RED CELL DISTRIBUTION WIDTH 16.2 % (11.5-14.5)
[2020-04-25 05:18] LABS: ALANINE AMINOTRANSFERASE 18 U/L (12-78); ALBUMIN 1.8 g/dL (3.4-5.0); ALKALINE PHOSPHATASE 88 U/L (46-116); ANION GAP 1 mmol/L (8-16); ASPARTATE AMINOTRANSFERASE 23 U/L (15-37); C-REACTIVE PROTEIN QUANT 2.67 mg/dL (0.00-0.30); CALCIUM, TOTAL 8.1 mg/dL (8.8-10.5); CARBON DIOXIDE 28 mmol/L (22-29); CHLORIDE 98 mmol/L (98-107); CREATININE 1.02 mg/dL (0.60-1.30); GLUCOSE,RANDOM 241 mg/dL (70-110); POTASSIUM 4.9 mmol/L (3.5-5.1); SODIUM SERUM 127 mmol/L (136-145); TOTAL PROTEIN, SERUM 5.6 g/dL (6.4-8.2); UREA NITROGEN, BLOOD 35 mg/dL (7-18)
[2020-04-25 05:24] LABS: GLOMERULAR FILTR. RATE CALC > 60 mL/min (>60)
[2020-04-25 05:46] LABS: NEUTROPHILS % (AUTO) 91.8 % (40.0-70.0)
[2020-04-25] MEDS: INSULIN LISPRO 100 UNITS/ML SQ PRN ×3 (05:51→18:35)
[2020-04-25] MEDS: DOCUSATE SODIUM 100 MG CAPSULE PO SCH ×2 (07:53→20:04)
[2020-04-25] MEDS: METOPROLOL SUCCINATE 25 MG ER TABLET PO SCH ×2 (07:53→20:04)
[2020-04-25] MEDS: ZINC SULFATE 220 MG CAPSULE PO SCH ×2 (07:53→20:03)
[2020-04-25] MEDS: DEXAMETHASONE SOD PHOS 4 MG/ML VIAL IVP SCH (07:53)
[2020-04-25] MEDS: CHOLECALCIFEROL (VIT D3) 1,000 UNITS [25 MCG] TABLET PO SCH (07:53)
[2020-04-25] MEDS: ASCORBIC ACID 500 MG TABLET PO SCH ×2 (07:53→20:04)
[2020-04-25] MEDS: LOSARTAN POTASSIUM 50 MG TABLET PO SCH (07:53)
[2020-04-25] MEDS: PANTOPRAZOLE SODIUM 40 MG DR TABLET PO SCH (07:54)
[2020-04-25] MEDS: INSULIN GLARGINE,HUM.REC.ANLOG 100 UNITS/ML SQ SCH (08:24)
[2020-04-25] MEDS: HEPARIN SODIUM,PORCINE 5,000 UNITS/ML VIAL IVP PRN (11:46)
[2020-04-25 12:21] LABS: ABG A-A DIFF O2 185.5 mmHg (10-20.0); ABG BASE EXCESS 6.1 mmol/L (-2.0-3.0); ABG CARBOXYHEMOGLOBIN 0.9 % (0.0-1.5); ABG HCO3 29.7 mmol/L (22.0-26.0); ABG METHEMOGLOBIN 0.3 % (0.0-1.5); ABG OXYGEN CONTENT 18.3 mL/dL (15.0-23.0); ABG OXYGEN SATURATION 97.9 % (95.0-98.0); ABG OXYHEMOGLOBIN 96.7 % (94.0-100.0); ABG PCO2 40 mmHg (35-45); ABG PH 7.487 (7.35-7.450); ABG TOTAL HEMOGLOBIN 13.4 G/dL (12.0-18.0); SOURCE, BLOOD GAS ARTERIAL; TEMPERATURE, FAHRENHEIT, BG 98.6 FAHREN (96.0-98.6)
[2020-04-25 12:29] LABS: CPAP, BG 5 cm H2O; O2 DEVICE,BLOOD GAS VENTILATOR (ROOM AIR); PEEP,BG 5 cm H2O; PRESSURE SUPPORT, BG 8 cm H2O; SITE, BLOOD GAS ARTERIAL LINE; SPONTANEOUS VT, BG 610 ml; VENT MODE, BG SPONTANEOUS (ROOM AIR)
[2020-04-25] MEDS: AmLODIPine BESYLATE 2.5 MG TABLET PO SCH (20:04)
[2020-04-25] MEDS: ZOLPIDEM TARTRATE 5 MG TABLET PO PRN (20:04)
[2020-04-25] MEDS ORDERED: SODIUM CHLORIDE 0.9% 250 ML IV ONE (23:59)
[2020-04-26] VITALS (8 sets, daily range): BP systolic 126–174; BP diastolic 56–98
[2020-04-26] MEDS: HEPARIN SODIUM 25000 UNITS/D5W 250 ML IV PRN (00:19)
[2020-04-26] MEDS: INSULIN LISPRO 100 UNITS/ML SQ PRN ×4 (00:47→17:18)
[2020-04-26] MEDS: HYDROCODONE/ACETAMINOPHEN 5-325 MG TABLET PO PRN ×4 (02:33→20:44)
[2020-04-26 05:44] LABS: BASOPHILS % (AUTO) 0.3 % (0.0-2.0); EOSINOPHILS % (AUTO) 1.3 % (1.0-6.0); HEMATOCRIT 34.6 % (41-53); HEMOGLOBIN 11.6 g/dL (13.5-17.5); LYMPHOCYTES # (AUTO) 0.6 K/uL (1.0-4.8); LYMPHOCYTES % (AUTO) 4.1 % (22.0-44.0); MEAN CORPUSCULAR HEMOGLOBIN 27.7 pg (26.0-34.0); MEAN CORPUSCULAR HGB CONC 33.5 G/dL (31.0-37.0); MEAN CORPUSCULAR VOLUME 83 fL (80-100); MONOCYTES # (AUTO) 0.5 K/uL (0.1-1.0); MONOCYTES % (AUTO) 3.1 % (2.0-9.0); NEUTROPHILS # (AUTO) 13.6 K/uL (1.8-7.7); PLATELET COUNT (AUTO) 83 K/uL (150-450); RED BLOOD CELL COUNT(AUTO) 4.19 MIL/uL (4.50-5.90)
[2020-04-26 05:50] LABS: NEUTROPHILS % (AUTO) 91.2 % (40.0-70.0)
[2020-04-26 05:58] LABS: ALANINE AMINOTRANSFERASE 22 U/L (12-78); ALBUMIN 1.8 g/dL (3.4-5.0); ALKALINE PHOSPHATASE 104 U/L (46-116); ANION GAP 1 mmol/L (8-16); ASPARTATE AMINOTRANSFERASE 22 U/L (15-37); BILIRUBIN,TOTAL 0.9 mg/dL (0.1-1.0); CALCIUM, TOTAL 7.7 mg/dL (8.8-10.5); CARBON DIOXIDE 29 mmol/L (22-29); CHLORIDE 95 mmol/L (98-107); CREATININE 1.02 mg/dL (0.60-1.30); GLOMERULAR FILTR. RATE CALC > 60 mL/min (>60); GLUCOSE,RANDOM 196 mg/dL (70-110); POTASSIUM 4.9 mmol/L (3.5-5.1); SODIUM SERUM 125 mmol/L (136-145); TOTAL PROTEIN, SERUM 5.4 g/dL (6.4-8.2); UREA NITROGEN, BLOOD 36 mg/dL (7-18)
[2020-04-26] MEDS: DOCUSATE SODIUM 100 MG CAPSULE PO SCH ×2 (08:13→20:43)
[2020-04-26] MEDS: METOPROLOL SUCCINATE 25 MG ER TABLET PO SCH ×2 (08:13→20:44)
[2020-04-26] MEDS: CHOLECALCIFEROL (VIT D3) 1,000 UNITS [25 MCG] TABLET PO SCH (08:13)
[2020-04-26] MEDS: PANTOPRAZOLE SODIUM 40 MG DR TABLET PO SCH (08:14)
[2020-04-26] MEDS: ASCORBIC ACID 500 MG TABLET PO SCH ×2 (08:14→20:43)
[2020-04-26] MEDS: LOSARTAN POTASSIUM 50 MG TABLET PO SCH (08:14)
[2020-04-26] MEDS: ZINC SULFATE 220 MG CAPSULE PO SCH ×2 (08:14→20:43)
[2020-04-26] MEDS: DEXAMETHASONE SOD PHOS 4 MG/ML VIAL IVP SCH (08:15)
[2020-04-26] MEDS: INSULIN GLARGINE,HUM.REC.ANLOG 100 UNITS/ML SQ SCH (08:19)
[2020-04-26] MEDS: DEXMEDETOMIDINE HCL 400 MCG in SODIUM CHLORIDE 0.9% 96 ML IV PRN (08:20)
[2020-04-26 15:00] LABS: ABG A-A DIFF O2 176.7 mmHg (10-20.0); ABG BASE EXCESS 2.9 mmol/L (-2.0-3.0); ABG HCO3 27.2 mmol/L (22.0-26.0); ABG METHEMOGLOBIN 0.3 % (0.0-1.5); ABG OXYGEN CONTENT 16.7 mL/dL (15.0-23.0); ABG OXYGEN SATURATION 95.1 % (95.0-98.0); ABG OXYHEMOGLOBIN 93.9 % (94.0-100.0); ABG PCO2 35 mmHg (35-45); ABG TOTAL HEMOGLOBIN 12.6 G/dL (12.0-18.0); PO2, ARTERIAL BG 68.2 mmHg (71.0-79.0); SOURCE, BLOOD GAS ARTERIAL; TEMPERATURE, FAHRENHEIT, BG 98.2 FAHREN (96.0-98.6)
[2020-04-26 15:01] LABS: O2 DEVICE,BLOOD GAS VENTILATOR (ROOM AIR); SITE, BLOOD GAS ARTERIAL LINE; VENT MODE, BG Press. Support Vent. (ROOM AIR)
[2020-04-26 15:02] LABS: PEEP,BG 5 cm H2O; PRESSURE SUPPORT, BG 8 cm H2O; SPONTANEOUS VT, BG 580 ml
[2020-04-26] MEDS: LORazepam 2 MG/ML VIAL IVP PRN (18:04)
[2020-04-26] MEDS: AmLODIPine BESYLATE 2.5 MG TABLET PO SCH (20:44)
[2020-04-27] VITALS: BP 105/54
[2020-04-27] MEDS: INSULIN LISPRO 100 UNITS/ML SQ PRN ×4 (00:55→17:37)
[2020-04-27] MEDS: LORazepam 2 MG/ML VIAL IVP PRN ×4 (01:10→22:23)
[2020-04-27 04:00] VITALS: BP 98/51
[2020-04-27 05:56] LABS: HEMATOCRIT 34.7 % (41-53); HEMOGLOBIN 11.7 g/dL (13.5-17.5); MEAN CORPUSCULAR HEMOGLOBIN 27.8 pg (26.0-34.0); MEAN CORPUSCULAR HGB CONC 33.6 G/dL (31.0-37.0); MEAN CORPUSCULAR VOLUME 83 fL (80-100); PLATELET COUNT (AUTO) 90 K/uL (150-450); RED BLOOD CELL COUNT(AUTO) 4.21 MIL/uL (4.50-5.90); RED CELL DISTRIBUTION WIDTH 16.2 % (11.5-14.5)
[2020-04-27] MEDS: DOPamine HCL 400 MG/D5%-WATER 250 ML IV PRN ×2 (06:37→15:46)
[2020-04-27 06:40] LABS: ANION GAP 5 mmol/L (8-16); C-REACTIVE PROTEIN QUANT 1.98 mg/dL (0.00-0.30); CALCIUM, TOTAL 8.1 mg/dL (8.8-10.5); CARBON DIOXIDE 30 mmol/L (22-29); CHLORIDE 93 mmol/L (98-107); CREATININE 0.96 mg/dL (0.60-1.30); GLUCOSE,RANDOM 233 mg/dL (70-110); POTASSIUM 4.9 mmol/L (3.5-5.1); SODIUM SERUM 128 mmol/L (136-145); UREA NITROGEN, BLOOD 36 mg/dL (7-18)
[2020-04-27 06:49] LABS: GLOMERULAR FILTR. RATE CALC > 60 mL/min (>60)
[2020-04-27 08:00] VITALS: BP 133/5
[2020-04-27] MEDS: DEXAMETHASONE SOD PHOS 4 MG/ML VIAL IVP SCH (08:30)
[2020-04-27] MEDS: ASCORBIC ACID 500 MG TABLET PO SCH ×2 (08:31→20:20)
[2020-04-27] MEDS: CHOLECALCIFEROL (VIT D3) 1,000 UNITS [25 MCG] TABLET PO SCH (08:31)
[2020-04-27] MEDS: ZINC SULFATE 220 MG CAPSULE PO SCH ×2 (08:31→20:20)
[2020-04-27] MEDS: LOSARTAN POTASSIUM 50 MG TABLET PO SCH (08:32)
[2020-04-27] MEDS: DOCUSATE SODIUM 100 MG CAPSULE PO SCH ×2 (08:32→20:20)
[2020-04-27] MEDS: PANTOPRAZOLE SODIUM 40 MG DR TABLET PO SCH (08:32)
[2020-04-27] MEDS: HYDROCODONE/ACETAMINOPHEN 5-325 MG TABLET PO PRN (08:32)
[2020-04-27] MEDS: METOPROLOL SUCCINATE 25 MG ER TABLET PO SCH ×2 (08:33→20:21)
[2020-04-27] MEDS: INSULIN GLARGINE,HUM.REC.ANLOG 100 UNITS/ML SQ SCH (08:49)
[2020-04-27] MEDS: DEXMEDETOMIDINE HCL 400 MCG in SODIUM CHLORIDE 0.9% 96 ML IV PRN ×2 (09:03→18:38)
[2020-04-27] MEDS: HEPARIN SODIUM,PORCINE 5,000 UNITS/ML VIAL IVP PRN (10:08)
[2020-04-27] MEDS: HEPARIN SODIUM 25000 UNITS/D5W 250 ML IV PRN (10:11)
[2020-04-27] MEDS: FentaNYL CITRATE PF 500 MCG in SODIUM CHLORIDE 0.9% 90 ML IV PRN (10:12)
[2020-04-27 12:32] VITALS: BP 132/74
[2020-04-27 13:27] LABS: APPEARANCE,URINE CLOUDY (CLEAR); BILIRUBIN,URINE NEGATIVE (NEGATIVE); GLUCOSE, URINE (UA) 500 mg/dL (NEGATIVE); KETONES,URINE NEGATIVE (NEGATIVE); LEUKOCYTE ESTERASE ,URINE SMALL (NEGATIVE); NITRATE,URINE NEGATIVE (NEGATIVE); OCCULT BLOOD,URINE NEGATIVE (NEGATIVE); PROTEIN,URINE TRACE (NEGATIVE)
[2020-04-27 13:34] LABS: RBC,URINE None Seen /HPF (0-2)
[2020-04-27 13:35] LABS: BACTERIA,URINE None Seen /HPF (None Seen); YEAST,URINE Many /HPF (None Seen)
[2020-04-27 13:53] LABS: BAND NEUTROPHILS % (MANUAL) 5 % (0-5); EOSINOPHILS % (MANUAL) 1 % (1-6); LYMPHOCYTES % (MANUAL) 5 % (22-44); MONOCYTES % (MANUAL) 3 % (2-9); SEGMENTED NEUTROPHILS % 86 % (40-70)
[2020-04-27] MEDS ORDERED: SODIUM CHLORIDE 0.9% 250 ML IV ONE ×2 (15:40→15:55)
[2020-04-27 16:00] VITALS: BP 102/57
[2020-04-27 16:42] LABS: GLUCOSE,POINT OF CARE 231 MG/DL (70-110)
[2020-04-27 16:42] LABS: GLUCOSE,POINT OF CARE 132 MG/DL (70-110)
[2020-04-27 16:42] LABS: GLUCOSE,POINT OF CARE 248 MG/DL (70-110)
[2020-04-27 16:42] LABS: GLUCOSE,POINT OF CARE 165 MG/DL (70-110)
[2020-04-27 16:42] LABS: GLUCOSE,POINT OF CARE 161 MG/DL (70-110)
[2020-04-27 16:42] LABS: GLUCOSE,POINT OF CARE 162 MG/DL (70-110)
[2020-04-27 16:43] LABS: GLUCOSE,POINT OF CARE 237 MG/DL (70-110)
[2020-04-27 16:43] LABS: GLUCOSE,POINT OF CARE 253 MG/DL (70-110)
[2020-04-27 16:43] LABS: GLUCOSE,POINT OF CARE 273 MG/DL (70-110)
[2020-04-27 16:43] LABS: GLUCOSE,POINT OF CARE 215 MG/DL (70-110)
[2020-04-27 16:43] LABS: GLUCOSE,POINT OF CARE 255 MG/DL (70-110)
[2020-04-27 16:44] LABS: GLUCOSE,POINT OF CARE 217 MG/DL (70-110)
[2020-04-27 16:44] LABS: GLUCOSE,POINT OF CARE 249 MG/DL (70-110)
[2020-04-27 19:19] LABS: GLUCOSE,POINT OF CARE 128 MG/DL (70-110)
[2020-04-27 19:19] LABS: GLUCOSE,POINT OF CARE 234 MG/DL (70-110)
[2020-04-27 19:19] LABS: GLUCOSE,POINT OF CARE 108 MG/DL (70-110)
[2020-04-27 19:19] LABS: GLUCOSE,POINT OF CARE 167 MG/DL (70-110)
[2020-04-27 19:20] LABS: GLUCOSE,POINT OF CARE 104 MG/DL (70-110)
[2020-04-27 19:20] LABS: GLUCOSE,POINT OF CARE 118 MG/DL (70-110)
[2020-04-27 19:20] LABS: GLUCOSE,POINT OF CARE 234 MG/DL (70-110)
[2020-04-27 19:20] LABS: GLUCOSE,POINT OF CARE 120 MG/DL (70-110)
[2020-04-27 19:20] LABS: GLUCOSE,POINT OF CARE 166 MG/DL (70-110)
[2020-04-27 19:20] LABS: GLUCOSE,POINT OF CARE 115 MG/DL (70-110)
[2020-04-27 19:21] LABS: GLUCOSE,POINT OF CARE 160 MG/DL (70-110)
[2020-04-27 19:21] LABS: GLUCOSE,POINT OF CARE 244 MG/DL (70-110)
[2020-04-27 19:21] LABS: GLUCOSE,POINT OF CARE 158 MG/DL (70-110)
[2020-04-27 19:21] LABS: GLUCOSE,POINT OF CARE 162 MG/DL (70-110)
[2020-04-27 19:21] LABS: GLUCOSE,POINT OF CARE 164 MG/DL (70-110)
[2020-04-27 19:21] LABS: GLUCOSE,POINT OF CARE 141 MG/DL (70-110)
[2020-04-27 19:21] LABS: GLUCOSE,POINT OF CARE 204 MG/DL (70-110)
[2020-04-27 19:21] LABS: GLUCOSE,POINT OF CARE 242 MG/DL (70-110)
[2020-04-27 19:22] LABS: GLUCOSE,POINT OF CARE 240 MG/DL (70-110)
[2020-04-27 19:22] LABS: GLUCOSE,POINT OF CARE 226 MG/DL (70-110)
[2020-04-27 19:22] LABS: GLUCOSE,POINT OF CARE 263 MG/DL (70-110)
[2020-04-27 19:22] LABS: GLUCOSE,POINT OF CARE 236 MG/DL (70-110)
[2020-04-27 20:00] VITALS: BP 134/66
[2020-04-27] MEDS: AmLODIPine BESYLATE 2.5 MG TABLET PO SCH (20:21)
[2020-04-28] VITALS (13 sets, daily range): BP systolic 101–175; BP diastolic 52–95
[2020-04-28] MEDS: FentaNYL CITRATE PF 500 MCG in SODIUM CHLORIDE 0.9% 90 ML IV PRN ×4 (00:30→23:06)
[2020-04-28] MEDS: DOPamine HCL 400 MG/D5%-WATER 250 ML IV PRN (00:31)
[2020-04-28] MEDS ORDERED: ATROPINE SULFATE 0.1 MG/ML 10 ML SYRINGE IVP ONE (00:34)
[2020-04-28] MEDS: INSULIN LISPRO 100 UNITS/ML SQ PRN ×3 (00:35→18:12)
[2020-04-28] MEDS: LORazepam 2 MG/ML VIAL IVP PRN ×10 (01:05→22:59)
[2020-04-28] MEDS: MORPHINE SULFATE 2 MG/ML SYRINGE IVP PRN ×6 (07:49→19:58)
[2020-04-28 08:02] LABS: GLUCOSE,POINT OF CARE 170 MG/DL (70-110)
[2020-04-28 08:02] LABS: GLUCOSE,POINT OF CARE 206 MG/DL (70-110)
[2020-04-28] MEDS: PROPOFOL 1000 MG/ISO-OSM 100 ML IV PRN (08:33)
[2020-04-28] MEDS: DOCUSATE SODIUM 100 MG CAPSULE PO SCH ×2 (08:40→20:23)
[2020-04-28] MEDS: ZINC SULFATE 220 MG CAPSULE PO SCH ×2 (08:40→20:23)
[2020-04-28] MEDS: PANTOPRAZOLE SODIUM 40 MG DR TABLET PO SCH (08:41)
[2020-04-28] MEDS: DEXAMETHASONE SOD PHOS 4 MG/ML VIAL IVP SCH (08:41)
[2020-04-28] MEDS: ASCORBIC ACID 500 MG TABLET PO SCH ×2 (08:41→20:23)
[2020-04-28] MEDS: METOPROLOL SUCCINATE 25 MG ER TABLET PO SCH ×2 (08:41→21:00)
[2020-04-28] MEDS: LOSARTAN POTASSIUM 50 MG TABLET PO SCH (08:41)
[2020-04-28] MEDS: CHOLECALCIFEROL (VIT D3) 1,000 UNITS [25 MCG] TABLET PO SCH (08:42)
[2020-04-28] MEDS: HYDROCODONE/ACETAMINOPHEN 5-325 MG TABLET PO PRN ×3 (08:44→14:06)
[2020-04-28] MEDS: INSULIN GLARGINE,HUM.REC.ANLOG 100 UNITS/ML SQ SCH (08:44)
[2020-04-28 09:27] LABS: GLUCOSE,POINT OF CARE 215 MG/DL (70-110)
[2020-04-28 11:18] LABS: BASOPHILS % (AUTO) 0.1 % (0.0-2.0); EOSINOPHILS % (AUTO) 0.8 % (1.0-6.0); HEMATOCRIT 34.3 % (41-53); HEMOGLOBIN 11.3 g/dL (13.5-17.5); LYMPHOCYTES # (AUTO) 0.4 K/uL (1.0-4.8); MEAN CORPUSCULAR HEMOGLOBIN 26.8 pg (26.0-34.0); MEAN CORPUSCULAR HGB CONC 32.8 G/dL (31.0-37.0); MEAN CORPUSCULAR VOLUME 82 fL (80-100); MONOCYTES # (AUTO) 0.5 K/uL (0.1-1.0); MONOCYTES % (AUTO) 2.6 % (2.0-9.0); NEUTROPHILS # (AUTO) 18.6 K/uL (1.8-7.7); PLATELET COUNT (AUTO) 91 K/uL (150-450); RED BLOOD CELL COUNT(AUTO) 4.19 MIL/uL (4.50-5.90); RED CELL DISTRIBUTION WIDTH 15.8 % (11.5-14.5)
[2020-04-28 11:20] LABS: NEUTROPHILS % (AUTO) 94.5 % (40.0-70.0)
[2020-04-28] MEDS: PHENYLEPHRINE 200 MG/D5%-WATER 250 ML IV PRN (11:32)
[2020-04-28 11:36] LABS: ANION GAP 8 mmol/L (8-16); C-REACTIVE PROTEIN QUANT 1.35 mg/dL (0.00-0.30); CALCIUM, TOTAL 7.1 mg/dL (8.8-10.5); CARBON DIOXIDE 27 mmol/L (22-29); CHLORIDE 96 mmol/L (98-107); CREATININE 0.71 mg/dL (0.60-1.30); GLUCOSE,RANDOM 134 mg/dL (70-110); POTASSIUM 4.3 mmol/L (3.5-5.1); SODIUM SERUM 131 mmol/L (136-145); UREA NITROGEN, BLOOD 26 mg/dL (7-18)
[2020-04-28 11:38] LABS: GLOMERULAR FILTR. RATE CALC > 60 mL/min (>60)
[2020-04-28 13:15] LABS: GLUCOSE,POINT OF CARE 162 MG/DL (70-110)
[2020-04-28] MEDS: HEPARIN SODIUM 25000 UNITS/D5W 250 ML IV PRN (17:55)
[2020-04-28 20:21] LABS: GLUCOSE,POINT OF CARE 250 MG/DL (70-110)
[2020-04-28] MEDS: DIAZEPAM 5 MG TABLET PO SCH (20:23)
[2020-04-28] MEDS: AmLODIPine BESYLATE 2.5 MG TABLET PO SCH (21:00)
[2020-04-29] VITALS (12 sets, daily range): BP systolic 92–139; BP diastolic 48–85
[2020-04-29] MEDS: INSULIN LISPRO 100 UNITS/ML SQ PRN ×4 (00:05→17:52)
[2020-04-29 01:46] LABS: GLUCOSE,POINT OF CARE 216 MG/DL (70-110)
[2020-04-29] MEDS: LORazepam 2 MG/ML VIAL IVP PRN ×5 (02:11→17:45)
[2020-04-29] MEDS: MORPHINE SULFATE 2 MG/ML SYRINGE IVP PRN ×5 (02:45→21:49)
[2020-04-29] MEDS: HYDROCODONE/ACETAMINOPHEN 5-325 MG TABLET PO PRN ×4 (03:04→16:58)
[2020-04-29 05:13] LABS: BASOPHILS % (AUTO) 0.1 % (0.0-2.0); EOSINOPHILS % (AUTO) 0.4 % (1.0-6.0); HEMATOCRIT 33.2 % (41-53); HEMOGLOBIN 10.7 g/dL (13.5-17.5); LYMPHOCYTES # (AUTO) 0.7 K/uL (1.0-4.8); LYMPHOCYTES % (AUTO) 3.9 % (22.0-44.0); MEAN CORPUSCULAR HGB CONC 32.3 G/dL (31.0-37.0); MEAN CORPUSCULAR VOLUME 84 fL (80-100); MONOCYTES # (AUTO) 0.6 K/uL (0.1-1.0); MONOCYTES % (AUTO) 2.9 % (2.0-9.0); NEUTROPHILS # (AUTO) 17.5 K/uL (1.8-7.7); PLATELET COUNT (AUTO) 105 K/uL (150-450); RED BLOOD CELL COUNT(AUTO) 3.98 MIL/uL (4.50-5.90); RED CELL DISTRIBUTION WIDTH 16.5 % (11.5-14.5)
[2020-04-29 05:21] LABS: NEUTROPHILS % (AUTO) 92.7 % (40.0-70.0)
[2020-04-29 05:23] LABS: GLUCOSE,POINT OF CARE 177 MG/DL (70-110)
[2020-04-29 05:35] LABS: ALANINE AMINOTRANSFERASE 27 U/L (12-78); ALBUMIN 1.9 g/dL (3.4-5.0); ALKALINE PHOSPHATASE 130 U/L (46-116); ANION GAP 4 mmol/L (8-16); ASPARTATE AMINOTRANSFERASE 20 U/L (15-37); BILIRUBIN,TOTAL 0.6 mg/dL (0.1-1.0); C-REACTIVE PROTEIN QUANT 2.78 mg/dL (0.00-0.30); CARBON DIOXIDE 28 mmol/L (22-29); CHLORIDE 97 mmol/L (98-107); CREATININE 0.96 mg/dL (0.60-1.30); GLUCOSE,RANDOM 194 mg/dL (70-110); POTASSIUM 4.7 mmol/L (3.5-5.1); SODIUM SERUM 129 mmol/L (136-145); TOTAL PROTEIN, SERUM 5.5 g/dL (6.4-8.2); UREA NITROGEN, BLOOD 26 mg/dL (7-18)
[2020-04-29] MEDS: FentaNYL CITRATE PF 500 MCG in SODIUM CHLORIDE 0.9% 90 ML IV PRN (05:36)
[2020-04-29 05:46] LABS: GLOMERULAR FILTR. RATE CALC > 60 mL/min (>60)
[2020-04-29] MEDS: DIAZEPAM 5 MG TABLET PO SCH ×2 (07:49→20:43)
[2020-04-29] MEDS: ZINC SULFATE 220 MG CAPSULE PO SCH ×2 (07:49→20:43)
[2020-04-29] MEDS: LOSARTAN POTASSIUM 50 MG TABLET PO SCH (07:50)
[2020-04-29] MEDS: PANTOPRAZOLE SODIUM 40 MG DR TABLET PO SCH (07:50)
[2020-04-29] MEDS: CHOLECALCIFEROL (VIT D3) 1,000 UNITS [25 MCG] TABLET PO SCH (07:50)
[2020-04-29] MEDS: ASCORBIC ACID 500 MG TABLET PO SCH ×2 (07:50→20:43)
[2020-04-29] MEDS: METOPROLOL SUCCINATE 25 MG ER TABLET PO SCH ×2 (07:50→20:43)
[2020-04-29] MEDS: DOCUSATE SODIUM 100 MG CAPSULE PO SCH ×2 (07:50→20:43)
[2020-04-29] MEDS: INSULIN GLARGINE,HUM.REC.ANLOG 100 UNITS/ML SQ SCH (08:02)
[2020-04-29 12:19] LABS: GLUCOSE,POINT OF CARE 164 MG/DL (70-110)
[2020-04-29] MEDS: DEXAMETHASONE SOD PHOS 4 MG/ML VIAL IVP SCH (13:16)
[2020-04-29 16:01] LABS: ABG A-A DIFF O2 202.4 mmHg (10-20.0); ABG BASE EXCESS 5.6 mmol/L (-2.0-3.0); ABG CARBOXYHEMOGLOBIN 0.8 % (0.0-1.5); ABG HCO3 29.1 mmol/L (22.0-26.0); ABG METHEMOGLOBIN 0.3 % (0.0-1.5); ABG OXYGEN CONTENT 15.7 mL/dL (15.0-23.0); ABG OXYGEN SATURATION 95.2 % (95.0-98.0); ABG OXYHEMOGLOBIN 94.2 % (94.0-100.0); ABG PCO2 41 mmHg (35-45); ABG PH 7.469 (7.35-7.450); ABG TOTAL HEMOGLOBIN 11.8 G/dL (12.0-18.0); CPAP, BG 0 cm H2O; O2 DEVICE,BLOOD GAS VENTILATOR (ROOM AIR); PO2, ARTERIAL BG 71.2 mmHg (71.0-79.0); PRESSURE SUPPORT, BG 8 cm H2O; SITE, BLOOD GAS RT RADIAL; SOURCE, BLOOD GAS ARTERIAL; TEMPERATURE, FAHRENHEIT, BG 99.2 FAHREN (96.0-98.6); VENT MODE, BG CPAP (ROOM AIR)
[2020-04-29] MEDS ORDERED: SODIUM CHLORIDE 0.9% 250 ML IV ONE (18:39)
[2020-04-29] MEDS: QUEtiapine FUMARATE 25 MG TABLET PO SCH (20:43)
[2020-04-29 20:57] LABS: GLUCOSE,POINT OF CARE 237 MG/DL (70-110)
[2020-04-29 20:57] LABS: GLUCOSE,POINT OF CARE 194 MG/DL (70-110)
[2020-04-29] MEDS: AmLODIPine BESYLATE 2.5 MG TABLET PO SCH (21:49)
[2020-04-30] VITALS (12 sets, daily range): BP systolic 100–159; BP diastolic 49–83
[2020-04-30] MEDS: INSULIN LISPRO 100 UNITS/ML SQ PRN ×4 (00:37→18:10)
[2020-04-30] MEDS: HYDROCODONE/ACETAMINOPHEN 5-325 MG TABLET PO PRN ×5 (01:15→23:38)
[2020-04-30] MEDS: HEPARIN SODIUM 25000 UNITS/D5W 250 ML IV PRN (02:49)
[2020-04-30 03:25] LABS: GLUCOSE,POINT OF CARE 292 MG/DL (70-110)
[2020-04-30 05:14] LABS: BASOPHILS % (AUTO) 0.5 % (0.0-2.0); EOSINOPHILS % (AUTO) 0 % (1.0-6.0); HEMATOCRIT 33.9 % (41-53); LYMPHOCYTES # (AUTO) 0.5 K/uL (1.0-4.8); LYMPHOCYTES % (AUTO) 3.5 % (22.0-44.0); MEAN CORPUSCULAR HEMOGLOBIN 27.4 pg (26.0-34.0); MEAN CORPUSCULAR HGB CONC 32.5 G/dL (31.0-37.0); MEAN CORPUSCULAR VOLUME 84 fL (80-100); MONOCYTES # (AUTO) 0.3 K/uL (0.1-1.0); MONOCYTES % (AUTO) 2.4 % (2.0-9.0); NEUTROPHILS # (AUTO) 12.4 K/uL (1.8-7.7); PLATELET COUNT (AUTO) 97 K/uL (150-450); RED BLOOD CELL COUNT(AUTO) 4.02 MIL/uL (4.50-5.90); RED CELL DISTRIBUTION WIDTH 16.9 % (11.5-14.5)
[2020-04-30 05:33] LABS: GLUCOSE,POINT OF CARE 235 MG/DL (70-110)
[2020-04-30 05:34] LABS: ALANINE AMINOTRANSFERASE 24 U/L (12-78); ALKALINE PHOSPHATASE 154 U/L (46-116); ANION GAP 4 mmol/L (8-16); ASPARTATE AMINOTRANSFERASE 20 U/L (15-37); BILIRUBIN,TOTAL 0.7 mg/dL (0.1-1.0); C-REACTIVE PROTEIN QUANT 14.43 mg/dL (0.00-0.30); CALCIUM, TOTAL 8.5 mg/dL (8.8-10.5); CARBON DIOXIDE 28 mmol/L (22-29); CHLORIDE 98 mmol/L (98-107); CREATININE 0.89 mg/dL (0.60-1.30); GLUCOSE,RANDOM 277 mg/dL (70-110); POTASSIUM 4.6 mmol/L (3.5-5.1); SODIUM SERUM 130 mmol/L (136-145); UREA NITROGEN, BLOOD 24 mg/dL (7-18)
[2020-04-30 05:35] LABS: GLOMERULAR FILTR. RATE CALC > 60 mL/min (>60)
[2020-04-30 05:40] LABS: NEUTROPHILS % (AUTO) 93.6 % (40.0-70.0)
[2020-04-30] MEDS: MORPHINE SULFATE 2 MG/ML SYRINGE IVP PRN ×5 (07:30→20:28)
[2020-04-30] MEDS: LORazepam 2 MG/ML VIAL IVP PRN ×5 (07:30→20:27)
[2020-04-30] MEDS: DOCUSATE SODIUM 100 MG CAPSULE PO SCH ×2 (08:42→20:27)
[2020-04-30] MEDS: ZINC SULFATE 220 MG CAPSULE PO SCH ×2 (08:42→20:27)
[2020-04-30] MEDS: PANTOPRAZOLE SODIUM 40 MG DR TABLET PO SCH (08:42)
[2020-04-30] MEDS: DEXAMETHASONE SOD PHOS 4 MG/ML VIAL IVP SCH (08:42)
[2020-04-30] MEDS: DIAZEPAM 5 MG TABLET PO SCH ×2 (08:42→20:27)
[2020-04-30] MEDS: CHOLECALCIFEROL (VIT D3) 1,000 UNITS [25 MCG] TABLET PO SCH (08:43)
[2020-04-30] MEDS: LOSARTAN POTASSIUM 50 MG TABLET PO SCH (08:43)
[2020-04-30] MEDS: METOPROLOL SUCCINATE 25 MG ER TABLET PO SCH ×3 (08:43→20:27)
[2020-04-30] MEDS: ASCORBIC ACID 500 MG TABLET PO SCH ×2 (08:43→20:27)
[2020-04-30] MEDS: MAGNESIUM HYDROXIDE SUSPENSION 30 ML UDCUP PO PRN (09:17)
[2020-04-30] MEDS: INSULIN GLARGINE,HUM.REC.ANLOG 100 UNITS/ML SQ SCH (09:17)
[2020-04-30] MEDS: HEPARIN SODIUM,PORCINE 5,000 UNITS/ML VIAL IVP PRN (09:18)
[2020-04-30 11:47] LABS: ABG A-A DIFF O2 207.2 mmHg (10-20.0); ABG BASE EXCESS 6.6 mmol/L (-2.0-3.0); ABG CARBOXYHEMOGLOBIN 0.8 % (0.0-1.5); ABG HCO3 30.1 mmol/L (22.0-26.0); ABG METHEMOGLOBIN 0.3 % (0.0-1.5); ABG OXYGEN SATURATION 95.1 % (95.0-98.0); ABG OXYHEMOGLOBIN 94.1 % (94.0-100.0); ABG PCO2 38 mmHg (35-45); ABG PH 7.508 (7.35-7.450); ABG TOTAL HEMOGLOBIN 12.1 G/dL (12.0-18.0); PO2, ARTERIAL BG 70.2 mmHg (71.0-79.0); SOURCE, BLOOD GAS ARTERIAL; TEMPERATURE, FAHRENHEIT, BG 98.6 FAHREN (96.0-98.6)
[2020-04-30 11:48] LABS: CPAP, BG 0 cm H2O; O2 DEVICE,BLOOD GAS VENTILATOR (ROOM AIR); PEEP,BG 0 cm H2O; PRESSURE SUPPORT, BG 10 cm H2O; SITE, BLOOD GAS ARTERIAL LINE; SPONTANEOUS VT, BG 586 ml; VENT MODE, BG SPONTANEOUS (ROOM AIR)
[2020-04-30] MEDS: ACETAMINOPHEN 325 MG TABLET PO PRN (12:57)
[2020-04-30 13:27] LABS: GLUCOSE,POINT OF CARE 237 MG/DL (70-110)
[2020-04-30 13:27] LABS: GLUCOSE,POINT OF CARE 294 MG/DL (70-110)
[2020-04-30] MEDS ORDERED: SODIUM CHLORIDE 0.9% 250 ML IV ONE (16:42)
[2020-04-30 18:26] LABS: GLUCOSE,POINT OF CARE 289 MG/DL (70-110)
[2020-04-30] MEDS: AmLODIPine BESYLATE 2.5 MG TABLET PO SCH (20:27)
[2020-04-30] MEDS: QUEtiapine FUMARATE 25 MG TABLET PO SCH (21:51)
[2020-05-01] VITALS: BP 130/55
[2020-05-01] MEDS: INSULIN LISPRO 100 UNITS/ML SQ PRN ×3 (00:33→12:11)
[2020-05-01 01:45] LABS: GLUCOSE,POINT OF CARE 261 MG/DL (70-110)
[2020-05-01] MEDS: LORazepam 2 MG/ML VIAL IVP PRN ×4 (03:33→21:40)
[2020-05-01 04:00] VITALS: BP 124/60
[2020-05-01] MEDS: HYDROCODONE/ACETAMINOPHEN 5-325 MG TABLET PO PRN ×3 (05:12→12:44)
[2020-05-01 05:56] LABS: BASOPHILS % (AUTO) 0.3 % (0.0-2.0); EOSINOPHILS % (AUTO) 0.1 % (1.0-6.0); HEMATOCRIT 36.6 % (41-53); HEMOGLOBIN 12.1 g/dL (13.5-17.5); LYMPHOCYTES # (AUTO) 0.3 K/uL (1.0-4.8); LYMPHOCYTES % (AUTO) 2.2 % (22.0-44.0); MEAN CORPUSCULAR HEMOGLOBIN 27.9 pg (26.0-34.0); MEAN CORPUSCULAR VOLUME 84 fL (80-100); MONOCYTES # (AUTO) 0.4 K/uL (0.1-1.0); MONOCYTES % (AUTO) 2.8 % (2.0-9.0); NEUTROPHILS # (AUTO) 14.4 K/uL (1.8-7.7); PLATELET COUNT (AUTO) 117 K/uL (150-450); RED BLOOD CELL COUNT(AUTO) 4.34 MIL/uL (4.50-5.90); RED CELL DISTRIBUTION WIDTH 17.2 % (11.5-14.5)
[2020-05-01 06:26] LABS: ALANINE AMINOTRANSFERASE 26 U/L (12-78); ALBUMIN 2.1 g/dL (3.4-5.0); ALKALINE PHOSPHATASE 147 U/L (46-116); ANION GAP 4 mmol/L (8-16); ASPARTATE AMINOTRANSFERASE 23 U/L (15-37); BILIRUBIN,TOTAL 0.6 mg/dL (0.1-1.0); CALCIUM, TOTAL 8.5 mg/dL (8.8-10.5); CARBON DIOXIDE 31 mmol/L (22-29); CHLORIDE 99 mmol/L (98-107); CREATININE 0.94 mg/dL (0.60-1.30); GLUCOSE,RANDOM 246 mg/dL (70-110); PHOSPHORUS 3.2 mg/dL (2.5-4.9); POTASSIUM 4.8 mmol/L (3.5-5.1); SODIUM SERUM 134 mmol/L (136-145); TOTAL PROTEIN, SERUM 6.6 g/dL (6.4-8.2); UREA NITROGEN, BLOOD 27 mg/dL (7-18)
[2020-05-01 06:59] LABS: NEUTROPHILS % (AUTO) 94.6 % (40.0-70.0)
[2020-05-01 07:00] LABS: GLOMERULAR FILTR. RATE CALC > 60 mL/min (>60)
[2020-05-01] MEDS: MORPHINE SULFATE 2 MG/ML SYRINGE IVP PRN ×3 (07:30→22:58)
[2020-05-01 08:00] VITALS: BP 124/68
[2020-05-01] MEDS: ASCORBIC ACID 500 MG TABLET PO SCH ×2 (08:00→21:00)
[2020-05-01] MEDS: CHOLECALCIFEROL (VIT D3) 1,000 UNITS [25 MCG] TABLET PO SCH (08:00)
[2020-05-01] MEDS: DIAZEPAM 5 MG TABLET PO SCH ×2 (08:00→21:00)
[2020-05-01] MEDS: PANTOPRAZOLE SODIUM 40 MG DR TABLET PO SCH (08:00)
[2020-05-01] MEDS: DOCUSATE SODIUM 100 MG CAPSULE PO SCH ×2 (08:00→21:00)
[2020-05-01] MEDS: MAGNESIUM HYDROXIDE SUSPENSION 30 ML UDCUP PO PRN (08:00)
[2020-05-01] MEDS: DEXAMETHASONE SOD PHOS 4 MG/ML VIAL IVP SCH (08:01)
[2020-05-01] MEDS: HEPARIN SODIUM,PORCINE 5,000 UNITS/ML VIAL IVP PRN (08:01)
[2020-05-01] MEDS: ZINC SULFATE 220 MG CAPSULE PO SCH ×2 (08:01→21:00)
[2020-05-01] MEDS: LOSARTAN POTASSIUM 50 MG TABLET PO SCH (09:00)
[2020-05-01] MEDS: INSULIN GLARGINE,HUM.REC.ANLOG 100 UNITS/ML SQ SCH (09:25)
[2020-05-01] MEDS: METOPROLOL SUCCINATE 25 MG ER TABLET PO SCH ×2 (10:32→21:00)
[2020-05-01 11:04] LABS: GLUCOSE,POINT OF CARE 212 MG/DL (70-110)
[2020-05-01 11:04] LABS: GLUCOSE,POINT OF CARE 192 MG/DL (70-110)
[2020-05-01 12:00] VITALS: BP 119/59
[2020-05-01 14:02] LABS: ABG A-A DIFF O2 197.2 mmHg (10-20.0); ABG BASE EXCESS 7.4 mmol/L (-2.0-3.0); ABG CARBOXYHEMOGLOBIN 0.8 % (0.0-1.5); ABG HCO3 30.8 mmol/L (22.0-26.0); ABG METHEMOGLOBIN 0.3 % (0.0-1.5); ABG OXYGEN CONTENT 16.5 mL/dL (15.0-23.0); ABG OXYGEN SATURATION 96.2 % (95.0-98.0); ABG OXYHEMOGLOBIN 95.1 % (94.0-100.0); ABG PCO2 40 mmHg (35-45); ABG PH 7.504 (7.35-7.450); ABG TOTAL HEMOGLOBIN 12.3 G/dL (12.0-18.0); PO2, ARTERIAL BG 78.1 mmHg (71.0-79.0); SOURCE, BLOOD GAS ARTERIAL; TEMPERATURE, FAHRENHEIT, BG 99.3 FAHREN (96.0-98.6)
[2020-05-01 14:03] LABS: O2 DEVICE,BLOOD GAS VENTILATOR (ROOM AIR); SITE, BLOOD GAS RT RADIAL; VENT MODE, BG Press. Support Vent. (ROOM AIR)
[2020-05-01 14:04] LABS: PEEP,BG 5 cm H2O; PRESSURE SUPPORT, BG 5 cm H2O; SPONTANEOUS VT, BG 610 ml
[2020-05-01 14:49] LABS: GLUCOSE,POINT OF CARE 229 MG/DL (70-110)
[2020-05-01 16:00] VITALS: BP 169/73
[2020-05-01] MEDS ORDERED: ACETAMINOPHEN 650 MG/ISO-OSM 65 ML IV SCH (18:00)
[2020-05-01] MEDS: ACETAMINOPHEN 650 MG/ISO-OSM 65 ML IV PRN (18:30)
[2020-05-01 20:00] VITALS: BP 144/78
[2020-05-01] MEDS ORDERED: METOPROLOL TARTRATE 5 MG/5 ML VIAL IVP PRN (20:00)
[2020-05-01] MEDS: AmLODIPine BESYLATE 2.5 MG TABLET PO SCH (21:00)
[2020-05-01] MEDS: QUEtiapine FUMARATE 25 MG TABLET PO SCH (21:00)
[2020-05-02] VITALS: BP 144/74
[2020-05-02] MEDS: MORPHINE SULFATE 2 MG/ML SYRINGE IVP PRN (00:15)
[2020-05-02] MEDS: ACETAMINOPHEN 650 MG/ISO-OSM 65 ML IV PRN (00:55)
[2020-05-02] MEDS: LORazepam 2 MG/ML VIAL IVP PRN (00:55)
[2020-05-02] MEDS: PROPOFOL 1000 MG/ISO-OSM 100 ML IV PRN ×2 (01:37→04:11)
[2020-05-02 02:39] LABS: ABG A-A DIFF O2 573.6 mmHg (10-20.0); ABG BASE EXCESS 4.9 mmol/L (-2.0-3.0); ABG CARBOXYHEMOGLOBIN 0.6 % (0.0-1.5); ABG HCO3 27.9 mmol/L (22.0-26.0); ABG OXYGEN CONTENT 16.3 mL/dL (15.0-23.0); ABG OXYGEN SATURATION 94.5 % (95.0-98.0); ABG OXYHEMOGLOBIN 93.9 % (94.0-100.0); ABG PCO2 55 mmHg (35-45); ABG PH 7.361 (7.35-7.450); ABG TOTAL HEMOGLOBIN 12.3 G/dL (12.0-18.0); PO2, ARTERIAL BG 81.5 mmHg (71.0-79.0); SOURCE, BLOOD GAS ARTERIAL; TEMPERATURE, FAHRENHEIT, BG 100.5 FAHREN (96.0-98.6)
[2020-05-02 02:40] LABS: O2 DEVICE,BLOOD GAS VENTILATOR (ROOM AIR); PEEP,BG 5 cm H2O; SITE, BLOOD GAS RT RADIAL; VT, ABG 450 ml
[2020-05-02] MEDS: INSULIN LISPRO 100 UNITS/ML SQ PRN ×2 (02:41→05:32)
[2020-05-02 03:00] LABS: GLUCOSE,POINT OF CARE 137 MG/DL (70-110)
[2020-05-02 04:00] VITALS: BP 129/71
[2020-05-02] MEDS ORDERED: SODIUM CHLORIDE 0.9% 250 ML IV ONE (04:52)
[2020-05-02 05:58] LABS: EOSINOPHILS % (AUTO) 0.2 % (1.0-6.0); LYMPHOCYTES # (AUTO) 0.4 K/uL (1.0-4.8); LYMPHOCYTES % (AUTO) 3.1 % (22.0-44.0); MEAN CORPUSCULAR HEMOGLOBIN 27.3 pg (26.0-34.0); MEAN CORPUSCULAR HGB CONC 32.2 G/dL (31.0-37.0); MEAN CORPUSCULAR VOLUME 85 fL (80-100); MONOCYTES # (AUTO) 0.3 K/uL (0.1-1.0); MONOCYTES % (AUTO) 1.9 % (2.0-9.0); NEUTROPHILS # (AUTO) 13.2 K/uL (1.8-7.7); NEUTROPHILS % (AUTO) 94.8 % (40.0-70.0); PLATELET COUNT (AUTO) 117 K/uL (150-450); RED BLOOD CELL COUNT(AUTO) 4.01 MIL/uL (4.50-5.90); RED CELL DISTRIBUTION WIDTH 17.3 % (11.5-14.5)
[2020-05-02 06:13] LABS: ANION GAP 4 mmol/L (8-16); C-REACTIVE PROTEIN QUANT 22.13 mg/dL (0.00-0.30); CALCIUM, TOTAL 8.3 mg/dL (8.8-10.5); CARBON DIOXIDE 31 mmol/L (22-29); CHLORIDE 97 mmol/L (98-107); CREATININE 1.01 mg/dL (0.60-1.30); GLUCOSE,RANDOM 161 mg/dL (70-110); POTASSIUM 4.5 mmol/L (3.5-5.1); SODIUM SERUM 132 mmol/L (136-145); UREA NITROGEN, BLOOD 28 mg/dL (7-18)
[2020-05-02 06:48] LABS: GLOMERULAR FILTR. RATE CALC > 60 mL/min (>60)
[2020-05-02 07:01] LABS: GLUCOSE,POINT OF CARE 147 MG/DL (70-110)
[2020-05-02 08:00] VITALS: BP 142/78
[2020-05-02] MEDS: LOSARTAN POTASSIUM 50 MG TABLET PO SCH (09:25)
[2020-05-02] MEDS: ZINC SULFATE 220 MG CAPSULE PO SCH ×2 (09:25→20:01)
[2020-05-02] MEDS: ASCORBIC ACID 500 MG TABLET PO SCH ×2 (09:25→20:00)
[2020-05-02] MEDS: CHOLECALCIFEROL (VIT D3) 1,000 UNITS [25 MCG] TABLET PO SCH (09:25)
[2020-05-02] MEDS: PANTOPRAZOLE SODIUM 40 MG DR TABLET PO SCH (09:25)
[2020-05-02] MEDS: METOPROLOL SUCCINATE 25 MG ER TABLET PO SCH ×2 (09:27→20:00)
[2020-05-02] MEDS: DOCUSATE SODIUM 100 MG CAPSULE PO SCH ×2 (09:27→20:00)
[2020-05-02] MEDS: DIAZEPAM 5 MG TABLET PO SCH ×2 (09:28→20:01)
[2020-05-02] MEDS: DEXAMETHASONE SOD PHOS 4 MG/ML VIAL IVP SCH (09:29)
[2020-05-02] MEDS: INSULIN GLARGINE,HUM.REC.ANLOG 100 UNITS/ML SQ SCH (09:30)
[2020-05-02] MEDS: ACETAMINOPHEN 325 MG TABLET PO PRN (10:48)
[2020-05-02 12:00] VITALS: BP 124/66
[2020-05-02 16:00] VITALS: BP 101/59
[2020-05-02] MEDS ORDERED: 0.9% SODIUM CHLORIDE 5 ML NEB SOLUTION NEB ONE (16:33)
[2020-05-02] MEDS: ACETYLCYSTEINE 10% 100 MG/ML 4 ML NEB SOLUTION NEB SCH ×2 (16:34→20:30)
[2020-05-02] MEDS: ALBUTEROL SULFATE 2.5 MG/0.5 ML NEB SOLUTION NEB SCH ×2 (16:34→20:29)
[2020-05-02 16:41] LABS: ABG A-A DIFF O2 569.3 mmHg (10-20.0); ABG BASE EXCESS 5.5 mmol/L (-2.0-3.0); ABG HCO3 28.5 mmol/L (22.0-26.0); ABG METHEMOGLOBIN 0.3 % (0.0-1.5); ABG OXYGEN CONTENT 15.8 mL/dL (15.0-23.0); ABG OXYGEN SATURATION 96.9 % (95.0-98.0); ABG OXYHEMOGLOBIN 95.6 % (94.0-100.0); ABG PCO2 52 mmHg (35-45); ABG PH 7.385 (7.35-7.450); ABG TOTAL HEMOGLOBIN 11.7 G/dL (12.0-18.0); PO2, ARTERIAL BG 90.9 mmHg (71.0-79.0); SOURCE, BLOOD GAS ARTERIAL
[2020-05-02 16:47] LABS: O2 DEVICE,BLOOD GAS VENTILATOR (ROOM AIR); PEEP,BG 10 cm H2O; PRESSURE SUPPORT, BG 10 cm H2O; SITE, BLOOD GAS RT RADIAL; SPONTANEOUS VT, BG 400 ml; VENT MODE, BG SIMV (ROOM AIR); VT, ABG 450 ml
[2020-05-02 17:00] LABS: GLUCOSE,POINT OF CARE 98 MG/DL (70-110)
[2020-05-02 20:00] VITALS: BP 135/69
[2020-05-02] MEDS: AmLODIPine BESYLATE 2.5 MG TABLET PO SCH (20:00)
[2020-05-02] MEDS: QUEtiapine FUMARATE 25 MG TABLET PO SCH (20:01)
[2020-05-02] MEDS: NOREPINEPHRINE 4 MG/D5%-WATER 250 ML IV PRN (21:36)
[2020-05-02 22:43] LABS: GLUCOSE,POINT OF CARE 106 MG/DL (70-110)
[2020-05-03] VITALS (7 sets, daily range): BP systolic 96–129; BP diastolic 46–62
[2020-05-03] MEDS: INSULIN LISPRO 100 UNITS/ML SQ PRN ×2 (00:38→05:26)
[2020-05-03] MEDS ORDERED: MIDAZOLAM HCL 2 MG/2 ML VIAL IVP ONE (02:40)
[2020-05-03] MEDS ORDERED: FentaNYL CITRATE-PF 100 MCG/2 ML VIAL IVP ONE (02:40)
[2020-05-03] MEDS: ALBUTEROL SULFATE 2.5 MG/0.5 ML NEB SOLUTION NEB SCH ×4 (03:29→22:22)
[2020-05-03] MEDS: ACETYLCYSTEINE 10% 100 MG/ML 4 ML NEB SOLUTION NEB SCH ×4 (03:29→22:22)
[2020-05-03] MEDS: NOREPINEPHRINE 4 MG/D5%-WATER 250 ML IV PRN ×3 (05:54→16:09)
[2020-05-03 06:06] LABS: BASOPHILS % (AUTO) 0.1 % (0.0-2.0); EOSINOPHILS % (AUTO) 0 % (1.0-6.0); HEMATOCRIT 30.3 % (41-53); LYMPHOCYTES # (AUTO) 0.4 K/uL (1.0-4.8); LYMPHOCYTES % (AUTO) 3.6 % (22.0-44.0); MEAN CORPUSCULAR HEMOGLOBIN 28.2 pg (26.0-34.0); MEAN CORPUSCULAR HGB CONC 32.9 G/dL (31.0-37.0); MEAN CORPUSCULAR VOLUME 86 fL (80-100); MONOCYTES # (AUTO) 0.3 K/uL (0.1-1.0); MONOCYTES % (AUTO) 2.9 % (2.0-9.0); NEUTROPHILS # (AUTO) 10.1 K/uL (1.8-7.7); PLATELET COUNT (AUTO) 117 K/uL (150-450); RED BLOOD CELL COUNT(AUTO) 3.53 MIL/uL (4.50-5.90); RED CELL DISTRIBUTION WIDTH 17.2 % (11.5-14.5)
[2020-05-03 06:08] LABS: GLUCOSE,POINT OF CARE 149 MG/DL (70-110)
[2020-05-03 06:08] LABS: GLUCOSE,POINT OF CARE 212 MG/DL (70-110)
[2020-05-03 06:20] LABS: D-DIMER 2.22 mg/L FEU (0.00-0.50)
[2020-05-03 06:29] LABS: NEUTROPHILS % (AUTO) 93.4 % (40.0-70.0)
[2020-05-03 06:32] LABS: ALBUMIN 1.6 g/dL (3.4-5.0); BILIRUBIN,TOTAL 0.6 mg/dL (0.1-1.0); CREATININE 1.43 mg/dL (0.60-1.30); POTASSIUM 5.9 mmol/L (3.5-5.1); TOTAL PROTEIN, SERUM 5.8 g/dL (6.4-8.2)
[2020-05-03 06:47] LABS: C-REACTIVE PROTEIN QUANT 31.42 mg/dL (0.00-0.30)
[2020-05-03] MEDS: DEXAMETHASONE SOD PHOS 4 MG/ML VIAL IVP SCH (08:16)
[2020-05-03] MEDS: CHOLECALCIFEROL (VIT D3) 1,000 UNITS [25 MCG] TABLET PO SCH (08:17)
[2020-05-03] MEDS: ASCORBIC ACID 500 MG TABLET PO SCH ×2 (08:17→22:17)
[2020-05-03] MEDS: ZINC SULFATE 220 MG CAPSULE PO SCH ×2 (08:17→22:16)
[2020-05-03] MEDS: PANTOPRAZOLE SODIUM 40 MG DR TABLET PO SCH (08:17)
[2020-05-03] MEDS: DOCUSATE SODIUM 100 MG CAPSULE PO SCH ×2 (08:17→21:00)
[2020-05-03] MEDS: DIAZEPAM 5 MG TABLET PO SCH ×2 (08:18→21:00)
[2020-05-03] MEDS: LOSARTAN POTASSIUM 50 MG TABLET PO SCH (08:18)
[2020-05-03] MEDS: METOPROLOL SUCCINATE 25 MG ER TABLET PO SCH ×2 (08:18→21:00)
[2020-05-03] MEDS: INSULIN GLARGINE,HUM.REC.ANLOG 100 UNITS/ML SQ SCH (08:21)
[2020-05-03] MEDS ORDERED: INSULIN REGULAR, HUMAN 100 UNITS/ML IVP ONE ×2 (11:00→16:30)
[2020-05-03] MEDS ORDERED: DEXTROSE 50%-WATER 25 GM/50 ML SYRINGE IVP ONE (11:00)
[2020-05-03 12:02] LABS: GLUCOSE,POINT OF CARE 194 MG/DL (70-110)
[2020-05-03] MEDS: SODIUM CHLORIDE 0.9% 1,000 ML IV SCH (14:45)
[2020-05-03 15:57] LABS: CALCIUM, TOTAL 7.8 mg/dL (8.8-10.5); CREATININE 1.74 mg/dL (0.60-1.30)
[2020-05-03 16:06] LABS: POTASSIUM 6.1 mmol/L (3.5-5.1)
[2020-05-03 16:22] LABS: APPEARANCE,URINE CLOUDY (CLEAR); BILIRUBIN,URINE NEGATIVE (NEGATIVE); GLUCOSE, URINE (UA) NEGATIVE (NEGATIVE); KETONES,URINE NEGATIVE (NEGATIVE); LEUKOCYTE ESTERASE ,URINE SMALL (NEGATIVE); NITRATE,URINE NEGATIVE (NEGATIVE); OCCULT BLOOD,URINE SMALL (NEGATIVE); PROTEIN,URINE POS 1+ (NEGATIVE)
[2020-05-03 16:25] LABS: CREATININE,URINE RANDOM 97.5 mg/dL (30.0-125.0); PROTEIN,URINE RANDOM 108 mg/dL (0-11.9); SODIUM,URINE RANDOM 26 mmol/l (20-110)
[2020-05-03 17:25] LABS: YEAST,URINE Many /HPF (None Seen)
[2020-05-03 17:26] LABS: BACTERIA,URINE Few /HPF (None Seen); RBC,URINE 0-2 /HPF (0-2)
[2020-05-03 17:27] LABS: SQUAMOUS EPITHELIAL CELL,UR Rare /LPF (None Seen)
[2020-05-03] MEDS: CefTAZidime PENTAHYDRATE 2 GM in DEXTROSE 5%-WATER 50 ML IV SCH (17:30)
[2020-05-03] MEDS: DAPTOMYCIN 500 MG in SODIUM CHLORIDE 0.9% 50 ML IV SCH (18:11)
[2020-05-03 20:53] LABS: ALBUMIN 1.7 g/dL (3.4-5.0); BILIRUBIN,TOTAL 0.5 mg/dL (0.1-1.0); CALCIUM, TOTAL 7.8 mg/dL (8.8-10.5); CREATININE 1.77 mg/dL (0.60-1.30); POTASSIUM 5.6 mmol/L (3.5-5.1)
[2020-05-03] MEDS ORDERED: SODIUM ZIRCONIUM CYCLOSILICATE 5 GM POWDER PACKET PO SCH (21:00)
[2020-05-03] MEDS: AmLODIPine BESYLATE 2.5 MG TABLET PO SCH (21:00)
[2020-05-03] MEDS: QUEtiapine FUMARATE 25 MG TABLET PO SCH (21:00)
[2020-05-03 22:43] LABS: GLUCOSE,POINT OF CARE 283 MG/DL (70-110)
[2020-05-04] VITALS (10 sets, daily range): BP systolic 102–150; BP diastolic 51–86
[2020-05-04] MEDS: INSULIN LISPRO 100 UNITS/ML SQ PRN ×2 (00:31→17:23)
[2020-05-04 00:44] LABS: GLUCOSE,POINT OF CARE 224 MG/DL (70-110)
[2020-05-04] MEDS: ALBUTEROL SULFATE 2.5 MG/0.5 ML NEB SOLUTION NEB SCH ×4 (02:54→20:29)
[2020-05-04] MEDS: ACETYLCYSTEINE 10% 100 MG/ML 4 ML NEB SOLUTION NEB SCH ×4 (02:54→20:29)
[2020-05-04 05:27] LABS: GLUCOSE,POINT OF CARE 164 MG/DL (70-110)
[2020-05-04 05:33] LABS: BASOPHILS % (AUTO) 0.1 % (0.0-2.0); EOSINOPHILS % (AUTO) 0 % (1.0-6.0); HEMATOCRIT 32.8 % (41-53); HEMOGLOBIN 10.6 g/dL (13.5-17.5); LYMPHOCYTES # (AUTO) 0.5 K/uL (1.0-4.8); LYMPHOCYTES % (AUTO) 5.1 % (22.0-44.0); MEAN CORPUSCULAR HEMOGLOBIN 27.4 pg (26.0-34.0); MEAN CORPUSCULAR HGB CONC 32.2 G/dL (31.0-37.0); MEAN CORPUSCULAR VOLUME 85 fL (80-100); MONOCYTES # (AUTO) 0.5 K/uL (0.1-1.0); MONOCYTES % (AUTO) 5.4 % (2.0-9.0); NEUTROPHILS # (AUTO) 8.8 K/uL (1.8-7.7); PLATELET COUNT (AUTO) 122 K/uL (150-450); RED BLOOD CELL COUNT(AUTO) 3.86 MIL/uL (4.50-5.90); RED CELL DISTRIBUTION WIDTH 16.7 % (11.5-14.5)
[2020-05-04 06:29] LABS: NEUTROPHILS % (AUTO) 89.4 % (40.0-70.0)
[2020-05-04] MEDS: SODIUM CHLORIDE 0.9% 1,000 ML IV SCH ×2 (06:36→18:28)
[2020-05-04 06:45] LABS: ALBUMIN 1.6 g/dL (3.4-5.0); BILIRUBIN,TOTAL 0.5 mg/dL (0.1-1.0); CALCIUM, TOTAL 7.5 mg/dL (8.8-10.5); CREATININE 1.45 mg/dL (0.60-1.30); POTASSIUM 4.8 mmol/L (3.5-5.1); TOTAL PROTEIN, SERUM 5.9 g/dL (6.4-8.2)
[2020-05-04 08:10] LABS: C-REACTIVE PROTEIN QUANT 19.17 mg/dL (0.00-0.30)
[2020-05-04] MEDS: ASCORBIC ACID 500 MG TABLET PO SCH ×2 (08:58→21:44)
[2020-05-04] MEDS: CHOLECALCIFEROL (VIT D3) 1,000 UNITS [25 MCG] TABLET PO SCH (08:58)
[2020-05-04] MEDS: ZINC SULFATE 220 MG CAPSULE PO SCH ×2 (08:58→21:44)
[2020-05-04] MEDS: PANTOPRAZOLE SODIUM 40 MG DR TABLET PO SCH (08:58)
[2020-05-04] MEDS: METOPROLOL SUCCINATE 25 MG ER TABLET PO SCH ×2 (08:59→21:44)
[2020-05-04] MEDS: DEXAMETHASONE SOD PHOS 4 MG/ML VIAL IVP SCH (08:59)
[2020-05-04] MEDS: DOCUSATE SODIUM 100 MG CAPSULE PO SCH ×2 (08:59→21:00)
[2020-05-04] MEDS: DIAZEPAM 5 MG TABLET PO SCH ×2 (09:00→21:00)
[2020-05-04] MEDS: INSULIN GLARGINE,HUM.REC.ANLOG 100 UNITS/ML SQ SCH (09:02)
[2020-05-04] MEDS: LORazepam 2 MG/ML VIAL IVP PRN (12:58)
[2020-05-04] MEDS: CefTAZidime PENTAHYDRATE 2 GM in DEXTROSE 5%-WATER 50 ML IV SCH (17:21)
[2020-05-04 19:13] LABS: GLUCOSE,POINT OF CARE 174 MG/DL (70-110)
[2020-05-04 20:50] LABS: GLUCOSE,POINT OF CARE 155 MG/DL (70-110)
[2020-05-04] MEDS: AmLODIPine BESYLATE 2.5 MG TABLET PO SCH (21:00)
[2020-05-04] MEDS: QUEtiapine FUMARATE 25 MG TABLET PO SCH (21:00)
[2020-05-05] VITALS: BP 95/48
[2020-05-05 01:11] LABS: GLUCOSE,POINT OF CARE 111 MG/DL (70-110)
[2020-05-05] MEDS: ACETYLCYSTEINE 10% 100 MG/ML 4 ML NEB SOLUTION NEB SCH ×4 (01:53→21:29)
[2020-05-05] MEDS: ALBUTEROL SULFATE 2.5 MG/0.5 ML NEB SOLUTION NEB SCH ×4 (01:54→21:29)
[2020-05-05 04:00] VITALS: BP 95/45
[2020-05-05 05:42] LABS: BASOPHILS % (AUTO) 0.1 % (0.0-2.0); EOSINOPHILS % (AUTO) 0 % (1.0-6.0); HEMOGLOBIN 9.2 g/dL (13.5-17.5); LYMPHOCYTES # (AUTO) 0.2 K/uL (1.0-4.8); LYMPHOCYTES % (AUTO) 3.7 % (22.0-44.0); MEAN CORPUSCULAR HEMOGLOBIN 27.7 pg (26.0-34.0); MEAN CORPUSCULAR VOLUME 84 fL (80-100); MONOCYTES # (AUTO) 0.4 K/uL (0.1-1.0); MONOCYTES % (AUTO) 6.1 % (2.0-9.0); NEUTROPHILS # (AUTO) 5.6 K/uL (1.8-7.7); PLATELET COUNT (AUTO) 104 K/uL (150-450); RED BLOOD CELL COUNT(AUTO) 3.33 MIL/uL (4.50-5.90); RED CELL DISTRIBUTION WIDTH 16.7 % (11.5-14.5)
[2020-05-05 05:54] LABS: NEUTROPHILS % (AUTO) 90.1 % (40.0-70.0)
[2020-05-05 06:09] LABS: ALANINE AMINOTRANSFERASE 29 U/L (12-78); ALBUMIN 1.6 g/dL (3.4-5.0); ALKALINE PHOSPHATASE 191 U/L (46-116); ANION GAP 3 mmol/L (8-16); ASPARTATE AMINOTRANSFERASE 33 U/L (15-37); BILIRUBIN,TOTAL 0.5 mg/dL (0.1-1.0); C-REACTIVE PROTEIN QUANT 8.55 mg/dL (0.00-0.30); CALCIUM, TOTAL 7.5 mg/dL (8.8-10.5); CARBON DIOXIDE 31 mmol/L (22-29); CHLORIDE 99 mmol/L (98-107); CREATININE 1.12 mg/dL (0.60-1.30); GLUCOSE,RANDOM 108 mg/dL (70-110); POTASSIUM 4.4 mmol/L (3.5-5.1); SODIUM SERUM 133 mmol/L (136-145); TOTAL PROTEIN, SERUM 5.7 g/dL (6.4-8.2); UREA NITROGEN, BLOOD 59 mg/dL (7-18)
[2020-05-05 06:13] LABS: GLOMERULAR FILTR. RATE CALC > 60 mL/min (>60)
[2020-05-05 06:48] LABS: GLUCOSE,POINT OF CARE 102 MG/DL (70-110)
[2020-05-05] MEDS: PANTOPRAZOLE SODIUM 40 MG DR TABLET PO SCH (07:53)
[2020-05-05] MEDS: ASCORBIC ACID 500 MG TABLET PO SCH ×2 (07:53→20:55)
[2020-05-05] MEDS: ZINC SULFATE 220 MG CAPSULE PO SCH ×2 (07:54→20:56)
[2020-05-05] MEDS: CHOLECALCIFEROL (VIT D3) 1,000 UNITS [25 MCG] TABLET PO SCH (07:54)
[2020-05-05] MEDS: SODIUM CHLORIDE 0.9% 1,000 ML IV SCH ×2 (07:55→23:08)
[2020-05-05] MEDS: DOCUSATE SODIUM 100 MG CAPSULE PO SCH ×2 (07:55→21:00)
[2020-05-05] MEDS: DEXAMETHASONE SOD PHOS 4 MG/ML VIAL IVP SCH (07:55)
[2020-05-05] MEDS: METOPROLOL SUCCINATE 25 MG ER TABLET PO SCH ×2 (07:56→20:56)
[2020-05-05] MEDS: DIAZEPAM 5 MG TABLET PO SCH ×2 (07:56→21:00)
[2020-05-05 08:00] VITALS: BP 103/51
[2020-05-05] MEDS: INSULIN GLARGINE,HUM.REC.ANLOG 100 UNITS/ML SQ SCH (09:00)
[2020-05-05 12:00] VITALS: BP 97/48
[2020-05-05 16:00] VITALS: BP 94/48
[2020-05-05] MEDS: HEPARIN SODIUM 25000 UNITS/D5W 250 ML IV PRN (17:03)
[2020-05-05] MEDS: CefTAZidime PENTAHYDRATE 2 GM in DEXTROSE 5%-WATER 50 ML IV SCH (17:04)
[2020-05-05] MEDS: DAPTOMYCIN 500 MG in SODIUM CHLORIDE 0.9% 50 ML IV SCH (18:11)
[2020-05-05 18:36] LABS: GLUCOSE,POINT OF CARE 101 MG/DL (70-110)
[2020-05-05 19:01] LABS: GLUCOSE,POINT OF CARE 111 MG/DL (70-110)
[2020-05-05 20:00] VITALS: BP 136/73
[2020-05-05] MEDS: QUEtiapine FUMARATE 25 MG TABLET PO SCH (21:00)
[2020-05-05] MEDS: AmLODIPine BESYLATE 2.5 MG TABLET PO SCH (21:00)
[2020-05-06] VITALS: BP 120/55
[2020-05-06 01:55] LABS: GLUCOSE,POINT OF CARE 99 MG/DL (70-110)
[2020-05-06] MEDS: ACETYLCYSTEINE 10% 100 MG/ML 4 ML NEB SOLUTION NEB SCH ×4 (02:00→19:47)
[2020-05-06] MEDS: ALBUTEROL SULFATE 2.5 MG/0.5 ML NEB SOLUTION NEB SCH ×4 (02:00→19:46)
[2020-05-06 04:00] VITALS: BP 96/49
[2020-05-06 05:41] LABS: GLUCOSE,POINT OF CARE 91 MG/DL (70-110)
[2020-05-06 06:39] LABS: ALANINE AMINOTRANSFERASE 41 U/L (12-78); ALBUMIN 1.6 g/dL (3.4-5.0); ALKALINE PHOSPHATASE 288 U/L (46-116); ANION GAP 3 mmol/L (8-16); ASPARTATE AMINOTRANSFERASE 48 U/L (15-37); BILIRUBIN,TOTAL 0.6 mg/dL (0.1-1.0); C-REACTIVE PROTEIN QUANT 4.46 mg/dL (0.00-0.30); CALCIUM, TOTAL 7.6 mg/dL (8.8-10.5); CARBON DIOXIDE 31 mmol/L (22-29); CHLORIDE 102 mmol/L (98-107); CREATININE 0.96 mg/dL (0.60-1.30); GLUCOSE,RANDOM 96 mg/dL (70-110); POTASSIUM 3.8 mmol/L (3.5-5.1); SODIUM SERUM 136 mmol/L (136-145); TOTAL PROTEIN, SERUM 5.3 g/dL (6.4-8.2); UREA NITROGEN, BLOOD 47 mg/dL (7-18)
[2020-05-06 06:45] LABS: GLOMERULAR FILTR. RATE CALC > 60 mL/min (>60)
[2020-05-06 07:23] LABS: EOSINOPHILS % (AUTO) 0 % (1.0-6.0); LYMPHOCYTES # (AUTO) 0.2 K/uL (1.0-4.8); LYMPHOCYTES % (AUTO) 3.6 % (22.0-44.0); MEAN CORPUSCULAR HEMOGLOBIN 27.9 pg (26.0-34.0); MEAN CORPUSCULAR HGB CONC 33.3 G/dL (31.0-37.0); MEAN CORPUSCULAR VOLUME 84 fL (80-100); MONOCYTES # (AUTO) 0.3 K/uL (0.1-1.0); MONOCYTES % (AUTO) 4.4 % (2.0-9.0); NEUTROPHILS # (AUTO) 5.8 K/uL (1.8-7.7); PLATELET COUNT (AUTO) 83 K/uL (150-450); RED BLOOD CELL COUNT(AUTO) 3.22 MIL/uL (4.50-5.90); RED CELL DISTRIBUTION WIDTH 16.6 % (11.5-14.5)
[2020-05-06 08:00] VITALS: BP 143/78
[2020-05-06] MEDS: INSULIN GLARGINE,HUM.REC.ANLOG 100 UNITS/ML SQ SCH (09:00)
[2020-05-06] MEDS: DOCUSATE SODIUM 100 MG CAPSULE PO SCH ×2 (09:00→21:00)
[2020-05-06] MEDS: CHOLECALCIFEROL (VIT D3) 1,000 UNITS [25 MCG] TABLET PO SCH (09:22)
[2020-05-06] MEDS: DIAZEPAM 5 MG TABLET PO SCH ×2 (09:23→21:05)
[2020-05-06] MEDS: ASCORBIC ACID 500 MG TABLET PO SCH ×2 (09:23→21:06)
[2020-05-06] MEDS: ZINC SULFATE 220 MG CAPSULE PO SCH ×2 (09:23→21:06)
[2020-05-06] MEDS: PANTOPRAZOLE SODIUM 40 MG DR TABLET PO SCH (09:23)
[2020-05-06] MEDS: METOPROLOL SUCCINATE 25 MG ER TABLET PO SCH ×2 (09:24→21:05)
[2020-05-06] MEDS: DEXAMETHASONE SOD PHOS 4 MG/ML VIAL IVP SCH (09:24)
[2020-05-06 12:00] VITALS: BP 129/76
[2020-05-06 14:33] LABS: GLUCOSE,POINT OF CARE 82 MG/DL (70-110)
[2020-05-06 16:00] VITALS: BP 150/67
[2020-05-06] MEDS: SODIUM CHLORIDE 0.9% 1,000 ML IV SCH (16:25)
[2020-05-06] MEDS: CefTAZidime PENTAHYDRATE 2 GM in DEXTROSE 5%-WATER 50 ML IV SCH (16:28)
[2020-05-06 20:00] VITALS: BP 150/75
[2020-05-06 20:49] LABS: GLUCOSE,POINT OF CARE 101 MG/DL (70-110)
[2020-05-06] MEDS: AmLODIPine BESYLATE 2.5 MG TABLET PO SCH (21:05)
[2020-05-06] MEDS: QUEtiapine FUMARATE 25 MG TABLET PO SCH (21:06)
[2020-05-07] VITALS: BP 110/55
[2020-05-07 01:07] LABS: GLUCOSE,POINT OF CARE 102 MG/DL (70-110)
[2020-05-07] MEDS: ACETYLCYSTEINE 10% 100 MG/ML 4 ML NEB SOLUTION NEB SCH ×4 (02:00→20:18)
[2020-05-07] MEDS: ALBUTEROL SULFATE 2.5 MG/0.5 ML NEB SOLUTION NEB SCH ×4 (02:00→20:18)
[2020-05-07 04:00] VITALS: BP 116/63
[2020-05-07] MEDS: SODIUM CHLORIDE 0.9% 1,000 ML IV SCH ×2 (05:46→20:39)
[2020-05-07 06:40] LABS: ALANINE AMINOTRANSFERASE 35 U/L (12-78); ALBUMIN 1.5 g/dL (3.4-5.0); ALKALINE PHOSPHATASE 260 U/L (46-116); ANION GAP 5 mmol/L (8-16); ASPARTATE AMINOTRANSFERASE 39 U/L (15-37); BILIRUBIN,TOTAL 0.5 mg/dL (0.1-1.0); C-REACTIVE PROTEIN QUANT 3.39 mg/dL (0.00-0.30); CALCIUM, TOTAL 7.2 mg/dL (8.8-10.5); CARBON DIOXIDE 30 mmol/L (22-29); CHLORIDE 104 mmol/L (98-107); CREATININE 0.75 mg/dL (0.60-1.30); GLUCOSE,RANDOM 115 mg/dL (70-110); SODIUM SERUM 139 mmol/L (136-145); UREA NITROGEN, BLOOD 38 mg/dL (7-18)
[2020-05-07 06:41] LABS: GLOMERULAR FILTR. RATE CALC > 60 mL/min (>60)
[2020-05-07 07:01] LABS: HEMATOCRIT 28.1 % (41-53); HEMOGLOBIN 8.9 g/dL (13.5-17.5); MEAN CORPUSCULAR HGB CONC 31.8 G/dL (31.0-37.0); MEAN CORPUSCULAR VOLUME 85 fL (80-100); RED BLOOD CELL COUNT(AUTO) 3.31 MIL/uL (4.50-5.90); RED CELL DISTRIBUTION WIDTH 16.8 % (11.5-14.5)
[2020-05-07 07:42] LABS: GLUCOSE,POINT OF CARE 101 MG/DL (70-110)
[2020-05-07 08:00] VITALS: BP 136/84
[2020-05-07] MEDS: INSULIN GLARGINE,HUM.REC.ANLOG 100 UNITS/ML SQ SCH (09:00)
[2020-05-07] MEDS: DOCUSATE SODIUM 100 MG CAPSULE PO SCH ×2 (09:00→20:40)
[2020-05-07] MEDS: DIAZEPAM 5 MG TABLET PO SCH ×2 (09:42→20:40)
[2020-05-07] MEDS: PANTOPRAZOLE SODIUM 40 MG DR TABLET PO SCH (09:42)
[2020-05-07] MEDS: ASCORBIC ACID 500 MG TABLET PO SCH ×2 (09:42→20:40)
[2020-05-07] MEDS: ZINC SULFATE 220 MG CAPSULE PO SCH ×2 (09:44→20:39)
[2020-05-07] MEDS: CHOLECALCIFEROL (VIT D3) 1,000 UNITS [25 MCG] TABLET PO SCH (09:44)
[2020-05-07] MEDS: METOPROLOL SUCCINATE 25 MG ER TABLET PO SCH ×2 (09:45→20:40)
[2020-05-07] MEDS: DEXAMETHASONE SOD PHOS 4 MG/ML VIAL IVP SCH (09:45)
[2020-05-07 10:04] LABS: PLATELET COUNT (AUTO) 66 K/uL (150-450)
[2020-05-07 10:07] LABS: BAND NEUTROPHILS % (MANUAL) 3 % (0-5); LYMPHOCYTES % (MANUAL) 6 % (22-44); MONOCYTES % (MANUAL) 2 % (2-9); SEGMENTED NEUTROPHILS % 89 % (40-70)
[2020-05-07 12:00] VITALS: BP 119/70
[2020-05-07] MEDS ORDERED: ETOMIDATE 2 MG/ML 10 ML VIAL ONE (14:22)
[2020-05-07] MEDS ORDERED: ROCURONIUM BROMIDE 10 MG/ML 5 ML VIAL ONE (14:23)
[2020-05-07] MEDS ORDERED: ETOMIDATE 2 MG/ML 10 ML VIAL IVP ONE (14:45)
[2020-05-07] MEDS ORDERED: ROCURONIUM BROMIDE 10 MG/ML 5 ML VIAL IVP ONE (14:45)
[2020-05-07 16:00] VITALS: BP 103/57
[2020-05-07 16:58] LABS: GLUCOSE,POINT OF CARE 109 MG/DL (70-110)
[2020-05-07] MEDS: CefTAZidime PENTAHYDRATE 2 GM in DEXTROSE 5%-WATER 50 ML IV SCH (18:21)
[2020-05-07] MEDS: HEPARIN SODIUM 25000 UNITS/D5W 250 ML IV PRN (18:22)
[2020-05-07] MEDS: DAPTOMYCIN 500 MG in SODIUM CHLORIDE 0.9% 50 ML IV SCH (18:24)
[2020-05-07 20:00] VITALS: BP 145/79
[2020-05-07] MEDS: QUEtiapine FUMARATE 25 MG TABLET PO SCH (20:39)
[2020-05-07 21:19] LABS: GLUCOSE,POINT OF CARE 129 MG/DL (70-110)
[2020-05-07] MEDS: AmLODIPine BESYLATE 2.5 MG TABLET PO SCH (21:46)
[2020-05-08] VITALS: BP 104/57
[2020-05-08] MEDS: INSULIN LISPRO 100 UNITS/ML SQ PRN ×3 (01:15→12:21)
[2020-05-08] MEDS: PROPOFOL 1000 MG/ISO-OSM 100 ML IV PRN (02:33)
[2020-05-08] MEDS: NOREPINEPHRINE 4 MG/D5%-WATER 250 ML IV PRN ×2 (03:08→18:17)
[2020-05-08] MEDS: ACETYLCYSTEINE 10% 100 MG/ML 4 ML NEB SOLUTION NEB SCH ×4 (03:29→20:25)
[2020-05-08] MEDS: ALBUTEROL SULFATE 2.5 MG/0.5 ML NEB SOLUTION NEB SCH ×4 (03:29→20:25)
[2020-05-08 04:00] VITALS: BP 118/59
[2020-05-08 07:01] LABS: GLUCOSE,POINT OF CARE 190 MG/DL (70-110)
[2020-05-08 07:07] LABS: BASOPHILS % (AUTO) 0.1 % (0.0-2.0); EOSINOPHILS % (AUTO) 0 % (1.0-6.0); HEMATOCRIT 26.9 % (41-53); HEMOGLOBIN 8.9 g/dL (13.5-17.5); LYMPHOCYTES # (AUTO) 0.4 K/uL (1.0-4.8); LYMPHOCYTES % (AUTO) 4.3 % (22.0-44.0); MEAN CORPUSCULAR HEMOGLOBIN 27.9 pg (26.0-34.0); MEAN CORPUSCULAR HGB CONC 33.1 G/dL (31.0-37.0); MEAN CORPUSCULAR VOLUME 84 fL (80-100); MONOCYTES # (AUTO) 0.2 K/uL (0.1-1.0); MONOCYTES % (AUTO) 2.5 % (2.0-9.0); NEUTROPHILS # (AUTO) 8.5 K/uL (1.8-7.7); PLATELET COUNT (AUTO) 80 K/uL (150-450); RED BLOOD CELL COUNT(AUTO) 3.19 MIL/uL (4.50-5.90); RED CELL DISTRIBUTION WIDTH 17.1 % (11.5-14.5)
[2020-05-08 07:32] LABS: ALANINE AMINOTRANSFERASE 31 U/L (12-78); ALBUMIN 1.5 g/dL (3.4-5.0); ALKALINE PHOSPHATASE 205 U/L (46-116); ANION GAP 5 mmol/L (8-16); ASPARTATE AMINOTRANSFERASE 34 U/L (15-37); BILIRUBIN,TOTAL 0.4 mg/dL (0.1-1.0); CALCIUM, TOTAL 6.9 mg/dL (8.8-10.5); CARBON DIOXIDE 30 mmol/L (22-29); CHLORIDE 108 mmol/L (98-107); CREATININE 0.86 mg/dL (0.60-1.30); GLUCOSE,RANDOM 198 mg/dL (70-110); POTASSIUM 3.9 mmol/L (3.5-5.1); SODIUM SERUM 143 mmol/L (136-145); TOTAL PROTEIN, SERUM 4.8 g/dL (6.4-8.2); UREA NITROGEN, BLOOD 39 mg/dL (7-18)
[2020-05-08 07:35] LABS: NEUTROPHILS % (AUTO) 93.1 % (40.0-70.0)
[2020-05-08 08:00] VITALS: BP 110/51
[2020-05-08 08:31] LABS: GLOMERULAR FILTR. RATE CALC > 60 mL/min (>60)
[2020-05-08] MEDS: CHOLECALCIFEROL (VIT D3) 1,000 UNITS [25 MCG] TABLET PO SCH (08:49)
[2020-05-08] MEDS: DOCUSATE SODIUM 100 MG CAPSULE PO SCH ×2 (08:49→19:43)
[2020-05-08] MEDS: PANTOPRAZOLE SODIUM 40 MG DR TABLET PO SCH (08:49)
[2020-05-08] MEDS: ZINC SULFATE 220 MG CAPSULE PO SCH ×2 (08:49→19:49)
[2020-05-08] MEDS: DIAZEPAM 5 MG TABLET PO SCH ×2 (08:49→19:49)
[2020-05-08] MEDS: METOPROLOL SUCCINATE 25 MG ER TABLET PO SCH ×2 (08:49→19:44)
[2020-05-08] MEDS: MORPHINE SULFATE 2 MG/ML SYRINGE IVP PRN (08:49)
[2020-05-08] MEDS: ASCORBIC ACID 500 MG TABLET PO SCH ×2 (08:49→19:49)
[2020-05-08] MEDS: INSULIN GLARGINE,HUM.REC.ANLOG 100 UNITS/ML SQ SCH (09:44)
[2020-05-08] MEDS: FentaNYL CITRATE PF 500 MCG in SODIUM CHLORIDE 0.9% 90 ML IV PRN ×2 (09:48→20:44)
[2020-05-08] MEDS: LORazepam 2 MG/ML VIAL IVP PRN (10:06)
[2020-05-08] MEDS: SODIUM CHLORIDE 0.9% 1,000 ML IV SCH ×2 (10:07→23:29)
[2020-05-08 12:00] VITALS: BP 93/49
[2020-05-08 16:00] VITALS: BP 121/71
[2020-05-08] MEDS: CefTAZidime PENTAHYDRATE 2 GM in DEXTROSE 5%-WATER 50 ML IV SCH (16:09)
[2020-05-08 16:45] LABS: GLUCOSE,POINT OF CARE 176 MG/DL (70-110)
[2020-05-08 16:46] LABS: GLUCOSE,POINT OF CARE 168 MG/DL (70-110)
[2020-05-08 16:46] LABS: GLUCOSE,POINT OF CARE 156 MG/DL (70-110)
[2020-05-08 18:27] LABS: PROTHROMBIN TIME 10.8 SEC (9.4-11.6)
[2020-05-08 18:54] LABS: GLUCOSE,POINT OF CARE 133 MG/DL (70-110)
[2020-05-08] MEDS: AmLODIPine BESYLATE 2.5 MG TABLET PO SCH (19:43)
[2020-05-08] MEDS ORDERED: 0.9% SODIUM CHLORIDE 15 ML NEB SOLUTION NEB ONE (19:44)
[2020-05-08] MEDS: QUEtiapine FUMARATE 25 MG TABLET PO SCH (19:49)
[2020-05-08 20:00] VITALS: BP 131/64
[2020-05-09] VITALS (16 sets, daily range): BP systolic 95–133; BP diastolic 45–78
[2020-05-09] MEDS: ACETAMINOPHEN 325 MG TABLET PO PRN (01:05)
[2020-05-09] MEDS: ALBUTEROL SULFATE 2.5 MG/0.5 ML NEB SOLUTION NEB SCH ×4 (02:27→20:47)
[2020-05-09] MEDS: ACETYLCYSTEINE 10% 100 MG/ML 4 ML NEB SOLUTION NEB SCH ×4 (02:27→20:47)
[2020-05-09 02:34] LABS: GLUCOSE,POINT OF CARE 169 MG/DL (70-110)
[2020-05-09] MEDS: FentaNYL CITRATE PF 500 MCG in SODIUM CHLORIDE 0.9% 90 ML IV PRN (04:21)
[2020-05-09] MEDS: INSULIN LISPRO 100 UNITS/ML SQ PRN (05:19)
[2020-05-09] MEDS ORDERED: CeFAZolin 2 GM/DEXTROSE 50 ML IV ONE (05:30)
[2020-05-09 05:46] LABS: BASOPHILS % (AUTO) 0.1 % (0.0-2.0); EOSINOPHILS % (AUTO) 0 % (1.0-6.0); HEMATOCRIT 26.6 % (41-53); HEMOGLOBIN 8.7 g/dL (13.5-17.5); LYMPHOCYTES # (AUTO) 0.3 K/uL (1.0-4.8); LYMPHOCYTES % (AUTO) 3.5 % (22.0-44.0); MEAN CORPUSCULAR HEMOGLOBIN 27.5 pg (26.0-34.0); MEAN CORPUSCULAR HGB CONC 32.5 G/dL (31.0-37.0); MEAN CORPUSCULAR VOLUME 85 fL (80-100); MONOCYTES # (AUTO) 0.2 K/uL (0.1-1.0); MONOCYTES % (AUTO) 2.6 % (2.0-9.0); NEUTROPHILS # (AUTO) 8.7 K/uL (1.8-7.7); PLATELET COUNT (AUTO) 50 K/uL (150-450); RED BLOOD CELL COUNT(AUTO) 3.15 MIL/uL (4.50-5.90); RED CELL DISTRIBUTION WIDTH 17.4 % (11.5-14.5)
[2020-05-09] MEDS: LORazepam 2 MG/ML VIAL IVP PRN ×2 (05:48→14:51)
[2020-05-09 06:14] LABS: ALANINE AMINOTRANSFERASE 25 U/L (12-78); ALBUMIN 1.4 g/dL (3.4-5.0); ALKALINE PHOSPHATASE 193 U/L (46-116); ANION GAP 1 mmol/L (8-16); ASPARTATE AMINOTRANSFERASE 37 U/L (15-37); BILIRUBIN,TOTAL 0.5 mg/dL (0.1-1.0); CALCIUM, TOTAL 7.3 mg/dL (8.8-10.5); CARBON DIOXIDE 30 mmol/L (22-29); CHLORIDE 108 mmol/L (98-107); CREATININE 0.73 mg/dL (0.60-1.30); GLUCOSE,RANDOM 93 mg/dL (70-110); POTASSIUM 3.9 mmol/L (3.5-5.1); SODIUM SERUM 139 mmol/L (136-145); TOTAL PROTEIN, SERUM 4.6 g/dL (6.4-8.2); UREA NITROGEN, BLOOD 32 mg/dL (7-18)
[2020-05-09 06:17] LABS: NEUTROPHILS % (AUTO) 93.8 % (40.0-70.0)
[2020-05-09 07:21] LABS: GLOMERULAR FILTR. RATE CALC > 60 mL/min (>60)
[2020-05-09] MEDS ORDERED: 0.9% SODIUM CHLORIDE 5 ML NEB SOLUTION NEB ONE ×2 (08:24→15:44)
[2020-05-09 08:47] LABS: ABG A-A DIFF O2 210.8 mmHg (10-20.0); ABG BASE EXCESS 3.7 mmol/L (-2.0-3.0); ABG CARBOXYHEMOGLOBIN 0.7 % (0.0-1.5); ABG HCO3 27.3 mmol/L (22.0-26.0); ABG METHEMOGLOBIN 0.3 % (0.0-1.5); ABG OXYGEN CONTENT 12.2 mL/dL (15.0-23.0); ABG OXYHEMOGLOBIN 91.1 % (94.0-100.0); ABG PCO2 43 mmHg (35-45); ABG PH 7.431 (7.35-7.450); ABG TOTAL HEMOGLOBIN 9.5 G/dL (12.0-18.0); O2 DEVICE,BLOOD GAS VENTILATOR (ROOM AIR); PEEP,BG 5 cm H2O; PO2, ARTERIAL BG 61.1 mmHg (71.0-79.0); SITE, BLOOD GAS RT RADIAL; SOURCE, BLOOD GAS ARTERIAL; TEMPERATURE, FAHRENHEIT, BG 98.6 FAHREN (96.0-98.6); VENT MODE, BG SIMV (ROOM AIR); VT, ABG 450 ml
[2020-05-09 08:48] LABS: PRESSURE SUPPORT, BG 10 cm H2O; SPONTANEOUS VT, BG 600 ml
[2020-05-09] MEDS: INSULIN GLARGINE,HUM.REC.ANLOG 100 UNITS/ML SQ SCH (09:00)
[2020-05-09] MEDS: METOPROLOL SUCCINATE 25 MG ER TABLET PO SCH ×2 (09:00→21:48)
[2020-05-09] MEDS: DOCUSATE SODIUM 100 MG CAPSULE PO SCH ×2 (09:00→21:49)
[2020-05-09] MEDS: ZINC SULFATE 220 MG CAPSULE PO SCH ×2 (09:48→21:48)
[2020-05-09] MEDS: CHOLECALCIFEROL (VIT D3) 1,000 UNITS [25 MCG] TABLET PO SCH (09:48)
[2020-05-09] MEDS: PANTOPRAZOLE SODIUM 40 MG DR TABLET PO SCH (09:48)
[2020-05-09] MEDS: DIAZEPAM 5 MG TABLET PO SCH ×2 (09:48→21:48)
[2020-05-09] MEDS: ASCORBIC ACID 500 MG TABLET PO SCH ×2 (09:48→21:49)
[2020-05-09] MEDS ORDERED: SODIUM CHLORIDE 0.9% 250 ML IV ONE ×2 (10:08→23:41)
[2020-05-09 13:34] LABS: EOSINOPHILS % (AUTO) 0.2 % (1.0-6.0); HEMATOCRIT 24.7 % (41-53); LYMPHOCYTES # (AUTO) 0.5 K/uL (1.0-4.8); LYMPHOCYTES % (AUTO) 4.9 % (22.0-44.0); MEAN CORPUSCULAR HEMOGLOBIN 27.5 pg (26.0-34.0); MEAN CORPUSCULAR HGB CONC 32.5 G/dL (31.0-37.0); MEAN CORPUSCULAR VOLUME 85 fL (80-100); MONOCYTES # (AUTO) 0.2 K/uL (0.1-1.0); MONOCYTES % (AUTO) 2.4 % (2.0-9.0); NEUTROPHILS # (AUTO) 8.7 K/uL (1.8-7.7); PLATELET COUNT (AUTO) 58 K/uL (150-450); RED BLOOD CELL COUNT(AUTO) 2.92 MIL/uL (4.50-5.90); RED CELL DISTRIBUTION WIDTH 17.4 % (11.5-14.5)
[2020-05-09 13:35] LABS: NEUTROPHILS % (AUTO) 92.5 % (40.0-70.0)
[2020-05-09] MEDS: HYDROCODONE/ACETAMINOPHEN 5-325 MG TABLET PO PRN (15:17)
[2020-05-09] MEDS: SODIUM CHLORIDE 0.9% 1,000 ML IV SCH (15:18)
[2020-05-09] MEDS: CefTAZidime PENTAHYDRATE 2 GM in DEXTROSE 5%-WATER 50 ML IV SCH (16:32)
[2020-05-09 17:40] LABS: BASOPHILS % (AUTO) 0.4 % (0.0-2.0); EOSINOPHILS % (AUTO) 0.2 % (1.0-6.0); LYMPHOCYTES # (AUTO) 0.4 K/uL (1.0-4.8); MEAN CORPUSCULAR HEMOGLOBIN 27.6 pg (26.0-34.0); MEAN CORPUSCULAR HGB CONC 32.8 G/dL (31.0-37.0); MEAN CORPUSCULAR VOLUME 84 fL (80-100); MONOCYTES # (AUTO) 0.3 K/uL (0.1-1.0); MONOCYTES % (AUTO) 2.9 % (2.0-9.0); NEUTROPHILS # (AUTO) 9.2 K/uL (1.8-7.7); PLATELET COUNT (AUTO) 70 K/uL (150-450); RED BLOOD CELL COUNT(AUTO) 2.24 MIL/uL (4.50-5.90); RED CELL DISTRIBUTION WIDTH 17.2 % (11.5-14.5)
[2020-05-09] MEDS ORDERED: PANTOPRAZOLE SODIUM 40 MG/VIAL IVP ONE (17:45)
[2020-05-09 17:50] LABS: HEMATOCRIT 18.9 % (41-53); HEMOGLOBIN 6.2 g/dL (13.5-17.5); NEUTROPHILS % (AUTO) 92.5 % (40.0-70.0)
[2020-05-09] MEDS: NOREPINEPHRINE 4 MG/D5%-WATER 250 ML IV PRN (19:07)
[2020-05-09 21:36] LABS: GLUCOSE,POINT OF CARE 136 MG/DL (70-110)
[2020-05-09 21:36] LABS: GLUCOSE,POINT OF CARE 87 MG/DL (70-110)
[2020-05-09 21:36] LABS: GLUCOSE,POINT OF CARE 149 MG/DL (70-110)
[2020-05-09] MEDS: AmLODIPine BESYLATE 2.5 MG TABLET PO SCH (21:48)
[2020-05-09] MEDS: QUEtiapine FUMARATE 25 MG TABLET PO SCH (21:48)
[2020-05-09] MEDS: PANTOPRAZOLE SODIUM 40 MG/VIAL IVP SCH (21:49)
[2020-05-09] MEDS ORDERED: SODIUM CHLORIDE 0.9% 500 ML IV ONE (23:41)
[2020-05-10] VITALS (12 sets, daily range): BP systolic 99–138; BP diastolic 51–81
[2020-05-10] MEDS: INSULIN LISPRO 100 UNITS/ML SQ PRN (00:56)
[2020-05-10 03:16] LABS: GLUCOSE,POINT OF CARE 156 MG/DL (70-110)
[2020-05-10] MEDS: ALBUTEROL SULFATE 2.5 MG/0.5 ML NEB SOLUTION NEB SCH ×4 (04:33→20:00)
[2020-05-10] MEDS: ACETYLCYSTEINE 10% 100 MG/ML 4 ML NEB SOLUTION NEB SCH ×4 (04:34→20:00)
[2020-05-10 06:28] LABS: BASOPHILS % (AUTO) 0.2 % (0.0-2.0); EOSINOPHILS % (AUTO) 0.7 % (1.0-6.0); HEMATOCRIT 25.1 % (41-53); HEMOGLOBIN 8.3 g/dL (13.5-17.5); LYMPHOCYTES # (AUTO) 0.4 K/uL (1.0-4.8); MEAN CORPUSCULAR HEMOGLOBIN 27.9 pg (26.0-34.0); MEAN CORPUSCULAR HGB CONC 33.2 G/dL (31.0-37.0); MEAN CORPUSCULAR VOLUME 84 fL (80-100); MONOCYTES # (AUTO) 0.3 K/uL (0.1-1.0); MONOCYTES % (AUTO) 2.8 % (2.0-9.0); NEUTROPHILS # (AUTO) 9.6 K/uL (1.8-7.7); PLATELET COUNT (AUTO) 53 K/uL (150-450); RED BLOOD CELL COUNT(AUTO) 2.99 MIL/uL (4.50-5.90); RED CELL DISTRIBUTION WIDTH 16.2 % (11.5-14.5)
[2020-05-10] MEDS: SODIUM CHLORIDE 0.9% 1,000 ML IV SCH ×2 (06:36→21:35)
[2020-05-10 07:12] LABS: ALANINE AMINOTRANSFERASE 22 U/L (12-78); ALBUMIN 1.5 g/dL (3.4-5.0); ALKALINE PHOSPHATASE 129 U/L (46-116); ANION GAP 2 mmol/L (8-16); ASPARTATE AMINOTRANSFERASE 35 U/L (15-37); BILIRUBIN,TOTAL 0.8 mg/dL (0.1-1.0); CALCIUM, TOTAL 6.9 mg/dL (8.8-10.5); CARBON DIOXIDE 32 mmol/L (22-29); CHLORIDE 109 mmol/L (98-107); CREATININE 0.75 mg/dL (0.60-1.30); GLUCOSE,RANDOM 85 mg/dL (70-110); POTASSIUM 3.7 mmol/L (3.5-5.1); SODIUM SERUM 143 mmol/L (136-145); TOTAL PROTEIN, SERUM 4.3 g/dL (6.4-8.2); UREA NITROGEN, BLOOD 21 mg/dL (7-18)
[2020-05-10 07:20] LABS: GLOMERULAR FILTR. RATE CALC > 60 mL/min (>60)
[2020-05-10 07:27] LABS: NEUTROPHILS % (AUTO) 92.3 % (40.0-70.0)
[2020-05-10 08:39] LABS: GLUCOSE,POINT OF CARE 80 MG/DL (70-110)
[2020-05-10] MEDS: INSULIN GLARGINE,HUM.REC.ANLOG 100 UNITS/ML SQ SCH (09:00)
[2020-05-10] MEDS: METOPROLOL SUCCINATE 25 MG ER TABLET PO SCH ×2 (09:00→21:35)
[2020-05-10] MEDS: ZINC SULFATE 220 MG CAPSULE PO SCH ×2 (09:42→21:36)
[2020-05-10] MEDS: ASCORBIC ACID 500 MG TABLET PO SCH ×2 (09:42→21:36)
[2020-05-10] MEDS: CHOLECALCIFEROL (VIT D3) 1,000 UNITS [25 MCG] TABLET PO SCH (09:42)
[2020-05-10] MEDS: DOCUSATE SODIUM 100 MG CAPSULE PO SCH ×2 (09:42→21:36)
[2020-05-10] MEDS: PANTOPRAZOLE SODIUM 40 MG/VIAL IVP SCH ×2 (09:43→21:35)
[2020-05-10] MEDS: DIAZEPAM 5 MG TABLET PO SCH ×2 (09:52→21:36)
[2020-05-10 12:00] LABS: GLUCOSE,POINT OF CARE 92 MG/DL (70-110)
[2020-05-10] MEDS: CefTAZidime PENTAHYDRATE 2 GM in DEXTROSE 5%-WATER 50 ML IV SCH (17:05)
[2020-05-10] MEDS: AmLODIPine BESYLATE 2.5 MG TABLET PO SCH (21:36)
[2020-05-10] MEDS: QUEtiapine FUMARATE 25 MG TABLET PO SCH (21:36)
[2020-05-11] VITALS: BP 111/57
[2020-05-11] MEDS: ALBUTEROL SULFATE 2.5 MG/0.5 ML NEB SOLUTION NEB SCH ×4 (01:50→19:29)
[2020-05-11] MEDS: ACETYLCYSTEINE 10% 100 MG/ML 4 ML NEB SOLUTION NEB SCH ×4 (01:50→19:29)
[2020-05-11 04:00] VITALS: BP 109/55
[2020-05-11 07:04] LABS: GLUCOSE,POINT OF CARE 111 MG/DL (70-110)
[2020-05-11] MEDS: INSULIN LISPRO 100 UNITS/ML SQ PRN ×4 (07:05→23:46)
[2020-05-11 07:16] LABS: GLUCOSE,POINT OF CARE 176 MG/DL (70-110)
[2020-05-11 08:00] VITALS: BP 102/54
[2020-05-11] MEDS: INSULIN GLARGINE,HUM.REC.ANLOG 100 UNITS/ML SQ SCH (09:29)
[2020-05-11] MEDS: CHOLECALCIFEROL (VIT D3) 1,000 UNITS [25 MCG] TABLET PO SCH (09:30)
[2020-05-11] MEDS: PANTOPRAZOLE SODIUM 40 MG/VIAL IVP SCH ×2 (09:30→20:58)
[2020-05-11] MEDS: ZINC SULFATE 220 MG CAPSULE PO SCH ×2 (09:30→20:57)
[2020-05-11] MEDS: ASCORBIC ACID 500 MG TABLET PO SCH ×2 (09:30→20:58)
[2020-05-11] MEDS: DIAZEPAM 5 MG TABLET PO SCH ×2 (09:30→20:58)
[2020-05-11] MEDS: DOCUSATE SODIUM 100 MG CAPSULE PO SCH ×2 (09:30→20:57)
[2020-05-11] MEDS: METOPROLOL SUCCINATE 25 MG ER TABLET PO SCH ×2 (09:30→20:57)
[2020-05-11] MEDS: SODIUM CHLORIDE 0.9% 1,000 ML IV SCH (09:31)
[2020-05-11 09:39] LABS: BASOPHILS % (AUTO) 0.3 % (0.0-2.0); EOSINOPHILS % (AUTO) 0.1 % (1.0-6.0); HEMATOCRIT 26.6 % (41-53); HEMOGLOBIN 8.7 g/dL (13.5-17.5); LYMPHOCYTES # (AUTO) 0.8 K/uL (1.0-4.8); LYMPHOCYTES % (AUTO) 6.2 % (22.0-44.0); MEAN CORPUSCULAR HEMOGLOBIN 27.6 pg (26.0-34.0); MEAN CORPUSCULAR HGB CONC 32.6 G/dL (31.0-37.0); MEAN CORPUSCULAR VOLUME 85 fL (80-100); MONOCYTES # (AUTO) 0.5 K/uL (0.1-1.0); MONOCYTES % (AUTO) 3.8 % (2.0-9.0); NEUTROPHILS # (AUTO) 11.5 K/uL (1.8-7.7); PLATELET COUNT (AUTO) 61 K/uL (150-450); RED BLOOD CELL COUNT(AUTO) 3.14 MIL/uL (4.50-5.90); RED CELL DISTRIBUTION WIDTH 16.8 % (11.5-14.5)
[2020-05-11 09:40] LABS: NEUTROPHILS % (AUTO) 89.6 % (40.0-70.0)
[2020-05-11 12:00] VITALS: BP 126/61
[2020-05-11] MEDS: LORazepam 2 MG/ML VIAL IVP PRN (14:17)
[2020-05-11 16:00] VITALS: BP 112/55
[2020-05-11 16:46] LABS: GLUCOSE,POINT OF CARE 240 MG/DL (70-110)
[2020-05-11] MEDS: CefTAZidime PENTAHYDRATE 2 GM in DEXTROSE 5%-WATER 50 ML IV SCH (17:06)
[2020-05-11 18:46] LABS: GLUCOSE,POINT OF CARE 184 MG/DL (70-110)
[2020-05-11 20:00] VITALS: BP 114/58
[2020-05-11] MEDS: AmLODIPine BESYLATE 2.5 MG TABLET PO SCH (20:57)
[2020-05-11] MEDS: QUEtiapine FUMARATE 25 MG TABLET PO SCH (20:58)
[2020-05-12] VITALS: BP 98/48
[2020-05-12] MEDS: SODIUM CHLORIDE 0.9% 1,000 ML IV SCH ×2 (00:08→13:41)
[2020-05-12 02:27] LABS: GLUCOSE,POINT OF CARE 149 MG/DL (70-110)
[2020-05-12] MEDS: ALBUTEROL SULFATE 2.5 MG/0.5 ML NEB SOLUTION NEB SCH ×4 (02:59→21:21)
[2020-05-12] MEDS: ACETYLCYSTEINE 10% 100 MG/ML 4 ML NEB SOLUTION NEB SCH ×4 (02:59→21:21)
[2020-05-12 04:00] VITALS: BP 110/59
[2020-05-12] MEDS: INSULIN LISPRO 100 UNITS/ML SQ PRN ×3 (05:28→17:16)
[2020-05-12 05:33] LABS: BASOPHILS % (AUTO) 0.3 % (0.0-2.0); EOSINOPHILS % (AUTO) 0.3 % (1.0-6.0); HEMATOCRIT 25.4 % (41-53); HEMOGLOBIN 8.2 g/dL (13.5-17.5); LYMPHOCYTES # (AUTO) 1.1 K/uL (1.0-4.8); MEAN CORPUSCULAR HEMOGLOBIN 27.5 pg (26.0-34.0); MEAN CORPUSCULAR HGB CONC 32.2 G/dL (31.0-37.0); MEAN CORPUSCULAR VOLUME 86 fL (80-100); MONOCYTES # (AUTO) 0.5 K/uL (0.1-1.0); MONOCYTES % (AUTO) 4.3 % (2.0-9.0); NEUTROPHILS # (AUTO) 9.7 K/uL (1.8-7.7); NEUTROPHILS % (AUTO) 85.1 % (40.0-70.0); PLATELET COUNT (AUTO) 70 K/uL (150-450); RED BLOOD CELL COUNT(AUTO) 2.97 MIL/uL (4.50-5.90)
[2020-05-12 05:58] LABS: ALANINE AMINOTRANSFERASE 18 U/L (12-78); ALBUMIN 1.2 g/dL (3.4-5.0); ALKALINE PHOSPHATASE 183 U/L (46-116); ANION GAP 4 mmol/L (8-16); ASPARTATE AMINOTRANSFERASE 33 U/L (15-37); BILIRUBIN,TOTAL 0.4 mg/dL (0.1-1.0); CARBON DIOXIDE 30 mmol/L (22-29); CHLORIDE 108 mmol/L (98-107); GLUCOSE,RANDOM 181 mg/dL (70-110); POTASSIUM 3.7 mmol/L (3.5-5.1); SODIUM SERUM 142 mmol/L (136-145); TOTAL PROTEIN, SERUM 4.2 g/dL (6.4-8.2); UREA NITROGEN, BLOOD 30 mg/dL (7-18)
[2020-05-12 06:21] LABS: GLOMERULAR FILTR. RATE CALC > 60 mL/min (>60)
[2020-05-12 06:38] LABS: GLUCOSE,POINT OF CARE 152 MG/DL (70-110)
[2020-05-12 08:00] VITALS: BP 108/48
[2020-05-12] MEDS: ASCORBIC ACID 500 MG TABLET PO SCH ×2 (08:31→21:33)
[2020-05-12] MEDS: PANTOPRAZOLE SODIUM 40 MG/VIAL IVP SCH ×2 (08:31→21:34)
[2020-05-12] MEDS: DOCUSATE SODIUM 100 MG CAPSULE PO SCH ×2 (08:31→21:33)
[2020-05-12] MEDS: ZINC SULFATE 220 MG CAPSULE PO SCH ×2 (08:31→21:33)
[2020-05-12] MEDS: DIAZEPAM 5 MG TABLET PO SCH ×2 (08:31→21:33)
[2020-05-12] MEDS: CHOLECALCIFEROL (VIT D3) 1,000 UNITS [25 MCG] TABLET PO SCH (08:32)
[2020-05-12] MEDS: INSULIN GLARGINE,HUM.REC.ANLOG 100 UNITS/ML SQ SCH (08:53)
[2020-05-12] MEDS: METOPROLOL SUCCINATE 25 MG ER TABLET PO SCH ×2 (09:00→21:33)
[2020-05-12] MEDS ORDERED: MULTIVITAMINS WITH MINERALS, THERAPEUTIC 15 ML UDCUP NG ONE (09:00)
[2020-05-12 11:50] LABS: GLUCOSE,POINT OF CARE 167 MG/DL (70-110)
[2020-05-12 12:00] VITALS: BP 118/51
[2020-05-12 12:43] LABS: GLUCOSE,POINT OF CARE 212 MG/DL (70-110)
[2020-05-12] MEDS: CefTAZidime PENTAHYDRATE 2 GM in DEXTROSE 5%-WATER 50 ML IV SCH (15:52)
[2020-05-12 16:00] VITALS: BP 116/48
[2020-05-12 18:56] LABS: GLUCOSE,POINT OF CARE 183 MG/DL (70-110)
[2020-05-12 20:00] VITALS: BP 118/56
[2020-05-12] MEDS: QUEtiapine FUMARATE 25 MG TABLET PO SCH (21:33)
[2020-05-12] MEDS: AmLODIPine BESYLATE 2.5 MG TABLET PO SCH (21:33)
[2020-05-13] VITALS: BP 115/52
[2020-05-13] MEDS: INSULIN LISPRO 100 UNITS/ML SQ PRN ×4 (00:30→17:48)
[2020-05-13 01:33] LABS: GLUCOSE,POINT OF CARE 137 MG/DL (70-110)
[2020-05-13] MEDS: ACETYLCYSTEINE 10% 100 MG/ML 4 ML NEB SOLUTION NEB SCH ×4 (02:05→21:21)
[2020-05-13] MEDS: ALBUTEROL SULFATE 2.5 MG/0.5 ML NEB SOLUTION NEB SCH ×4 (02:05→21:21)
[2020-05-13 04:00] VITALS: BP 120/53
[2020-05-13 05:31] LABS: BASOPHILS % (AUTO) 0.5 % (0.0-2.0); EOSINOPHILS % (AUTO) 0.6 % (1.0-6.0); HEMATOCRIT 24.3 % (41-53); LYMPHOCYTES % (AUTO) 10.9 % (22.0-44.0); MEAN CORPUSCULAR HEMOGLOBIN 27.9 pg (26.0-34.0); MEAN CORPUSCULAR HGB CONC 32.9 G/dL (31.0-37.0); MEAN CORPUSCULAR VOLUME 85 fL (80-100); MONOCYTES # (AUTO) 0.5 K/uL (0.1-1.0); MONOCYTES % (AUTO) 5.1 % (2.0-9.0); NEUTROPHILS # (AUTO) 7.9 K/uL (1.8-7.7); NEUTROPHILS % (AUTO) 82.9 % (40.0-70.0); PLATELET COUNT (AUTO) 68 K/uL (150-450); RED BLOOD CELL COUNT(AUTO) 2.86 MIL/uL (4.50-5.90)
[2020-05-13] MEDS: SODIUM CHLORIDE 0.9% 1,000 ML IV SCH (05:43)
[2020-05-13 08:00] VITALS: BP 122/55
[2020-05-13] MEDS: ZINC SULFATE 220 MG CAPSULE PO SCH ×2 (08:50→22:40)
[2020-05-13] MEDS: DOCUSATE SODIUM 100 MG CAPSULE PO SCH ×2 (08:50→21:45)
[2020-05-13] MEDS: PANTOPRAZOLE SODIUM 40 MG/VIAL IVP SCH ×2 (08:50→21:45)
[2020-05-13] MEDS: DIAZEPAM 5 MG TABLET PO SCH (08:50)
[2020-05-13] MEDS: CHOLECALCIFEROL (VIT D3) 1,000 UNITS [25 MCG] TABLET PO SCH (08:51)
[2020-05-13] MEDS: ASCORBIC ACID 500 MG TABLET PO SCH ×2 (08:51→21:45)
[2020-05-13] MEDS: METOPROLOL SUCCINATE 25 MG ER TABLET PO SCH ×2 (09:00→21:00)
[2020-05-13] MEDS: INSULIN GLARGINE,HUM.REC.ANLOG 100 UNITS/ML SQ SCH (09:13)
[2020-05-13] MEDS: HYDROCODONE/ACETAMINOPHEN 5-325 MG TABLET PO PRN (10:38)
[2020-05-13 12:00] VITALS: BP 111/51
[2020-05-13] MEDS ORDERED: HYDROCODONE/ACETAMINOPHEN 5-325 MG TABLET PO PRN (14:45)
[2020-05-13 16:00] VITALS: BP 110/44
[2020-05-13] MEDS: CefTAZidime PENTAHYDRATE 2 GM in DEXTROSE 5%-WATER 50 ML IV SCH (16:03)
[2020-05-13 17:09] LABS: GLUCOSE,POINT OF CARE 176 MG/DL (70-110)
[2020-05-13 18:28] LABS: GLUCOSE,POINT OF CARE 161 MG/DL (70-110)
[2020-05-13 18:28] LABS: GLUCOSE,POINT OF CARE 163 MG/DL (70-110)
[2020-05-13 18:29] LABS: GLUCOSE,POINT OF CARE 220 MG/DL (70-110)
[2020-05-13 19:49] VITALS: BP 107/54
[2020-05-13] MEDS: AmLODIPine BESYLATE 2.5 MG TABLET PO SCH (21:00)
[2020-05-14 01:07] VITALS: BP 114/52
[2020-05-14] MEDS: ACETYLCYSTEINE 10% 100 MG/ML 4 ML NEB SOLUTION NEB SCH ×4 (02:05→20:37)
[2020-05-14] MEDS: ALBUTEROL SULFATE 2.5 MG/0.5 ML NEB SOLUTION NEB SCH ×4 (02:05→20:37)
[2020-05-14 04:10] LABS: GLUCOMETER DEV NAME(LOC) 5S.2B; GLUCOSE,POINT OF CARE 148 MG/DL (70-110)
[2020-05-14 04:44] VITALS: BP 139/62
[2020-05-14] MEDS: INSULIN LISPRO 100 UNITS/ML SQ PRN ×2 (05:32→12:37)
[2020-05-14 07:38] VITALS: BP 132/66
[2020-05-14] MEDS: PANTOPRAZOLE SODIUM 40 MG/VIAL IVP SCH ×2 (08:19→21:15)
[2020-05-14] MEDS: DOCUSATE SODIUM 100 MG CAPSULE PO SCH ×2 (08:19→21:15)
[2020-05-14] MEDS: METOPROLOL SUCCINATE 25 MG ER TABLET PO SCH ×2 (08:20→23:14)
[2020-05-14] MEDS: CHOLECALCIFEROL (VIT D3) 1,000 UNITS [25 MCG] TABLET PO SCH (08:20)
[2020-05-14] MEDS: ASCORBIC ACID 500 MG TABLET PO SCH ×2 (08:21→21:15)
[2020-05-14] MEDS: ZINC SULFATE 220 MG CAPSULE PO SCH ×2 (08:24→21:15)
[2020-05-14] MEDS: INSULIN GLARGINE,HUM.REC.ANLOG 100 UNITS/ML SQ SCH (08:27)
[2020-05-14 12:03] LABS: COVID AG,FIA SOURCE NASAL SWAB
[2020-05-14 12:41] LABS: GLUCOMETER DEV NAME(LOC) 5N.3; GLUCOSE,POINT OF CARE 170 MG/DL (70-110)
[2020-05-14 12:42] LABS: GLUCOMETER DEV NAME(LOC) 5N.3; GLUCOSE,POINT OF CARE 184 MG/DL (70-110)
[2020-05-14 14:49] VITALS: BP 122/68
[2020-05-14 19:28] LABS: GLUCOMETER DEV NAME(LOC) 5N.3; GLUCOSE,POINT OF CARE 89 MG/DL (70-110)
[2020-05-14] MEDS: AmLODIPine BESYLATE 2.5 MG TABLET PO SCH (21:00)
[2020-05-14 21:49] VITALS: BP 123/52
[2020-05-14 23:58] VITALS: BP 119/63
[2020-05-15] MEDS: ALBUTEROL SULFATE 2.5 MG/0.5 ML NEB SOLUTION NEB SCH ×4 (02:00→20:10)
[2020-05-15] MEDS: ACETYLCYSTEINE 10% 100 MG/ML 4 ML NEB SOLUTION NEB SCH ×4 (02:00→20:10)
[2020-05-15 03:46] VITALS: BP 123/52
[2020-05-15] MEDS: INSULIN LISPRO 100 UNITS/ML SQ PRN ×3 (05:31→18:01)
[2020-05-15 06:34] LABS: GLUCOMETER DEV NAME(LOC) 5S.2B; GLUCOSE,POINT OF CARE 189 MG/DL (70-110)
[2020-05-15 08:01] LABS: GLUCOMETER DEV NAME(LOC) 5N.3; GLUCOSE,POINT OF CARE 134 MG/DL (70-110)
[2020-05-15 08:16] VITALS: BP 115/51
[2020-05-15] MEDS: DOCUSATE SODIUM 100 MG CAPSULE PO SCH ×2 (09:00→21:00)
[2020-05-15] MEDS: PANTOPRAZOLE SODIUM 40 MG/VIAL IVP SCH ×2 (09:16→20:21)
[2020-05-15] MEDS: ASCORBIC ACID 500 MG TABLET PO SCH ×2 (09:17→20:20)
[2020-05-15] MEDS: ZINC SULFATE 220 MG CAPSULE PO SCH ×2 (09:17→20:20)
[2020-05-15] MEDS: METOPROLOL SUCCINATE 25 MG ER TABLET PO SCH ×2 (09:17→20:20)
[2020-05-15] MEDS: CHOLECALCIFEROL (VIT D3) 1,000 UNITS [25 MCG] TABLET PO SCH (09:17)
[2020-05-15] MEDS: INSULIN GLARGINE,HUM.REC.ANLOG 100 UNITS/ML SQ SCH (09:31)
[2020-05-15 11:59] VITALS: BP 111/39
[2020-05-15 12:06] LABS: GLUCOMETER DEV NAME(LOC) 5S.2B; GLUCOSE,POINT OF CARE 175 MG/DL (70-110)
[2020-05-15] MEDS ORDERED: 0.9% SODIUM CHLORIDE 15 ML NEB SOLUTION NEB ONE (15:47)
[2020-05-15 15:54] VITALS: BP 121/47
[2020-05-15] MEDS: ACETAMINOPHEN 325 MG TABLET PO PRN (20:16)
[2020-05-15] MEDS: AmLODIPine BESYLATE 2.5 MG TABLET PO SCH (21:00)
[2020-05-15] MEDS ORDERED: APIXABAN 2.5 MG TABLET PO SCH (21:00)
[2020-05-15 23:54] LABS: GLUCOMETER DEV NAME(LOC) 5S.2B; GLUCOSE,POINT OF CARE 150 MG/DL (70-110)
[2020-05-15 23:54] LABS: GLUCOMETER DEV NAME(LOC) 5S.2B; GLUCOSE,POINT OF CARE 111 MG/DL (70-110)
== END 2020-05-15 21:30 | disposition short-term general hospital (02) | DRG 5 ==
LOC: EMS 19:33 → 6N 04-01 04:00 → 5N 04-05 13:08 → ICU 04-12 17:00 → 5N 05-13 19:00
PROVIDERS: ADMIT Hospitalist; ATTEND Hospitalist
PROC: XW033E5 Introduction of Remdesivir Anti-infective into Peripheral Vein, Percutaneous Approach, New Technology Group 5 (ICD-10-PCS; 2020-04-03)
PROC: XW13325 Transfusion of Convalescent Plasma (Nonautologous) into Peripheral Vein, Percutaneous Approach, New Technology Group 5 (ICD-10-PCS; 2020-04-06)
PROC: 30233K1 Transfusion of Nonautologous Frozen Plasma into Peripheral Vein, Percutaneous Approach (ICD-10-PCS; 2020-04-07)
PROC: 5A1955Z Respiratory Ventilation, Greater than 96 Consecutive Hours (ICD-10-PCS; principal; 2020-04-17)
PROC: 0BH17EZ Insertion of Endotracheal Airway into Trachea, Via Natural or Artificial Opening (ICD-10-PCS; 2020-04-17)
PROC: 0B113F4 Bypass Trachea to Cutaneous with Tracheostomy Device, Percutaneous Approach (ICD-10-PCS; 2020-05-07)
PROC: 0BJ08ZZ Inspection of Tracheobronchial Tree, Via Natural or Artificial Opening Endoscopic (ICD-10-PCS; 2020-05-07)
PROC: 0B9F8ZX Drainage of Right Lower Lung Lobe, Via Natural or Artificial Opening Endoscopic, Diagnostic (ICD-10-PCS; 2020-05-07)
PROC: 0DH63UZ Insertion of Feeding Device into Stomach, Percutaneous Approach (ICD-10-PCS; 2020-05-09)
PROC: 30233Q1 Transfusion of Nonautologous White Cells into Peripheral Vein, Percutaneous Approach (ICD-10-PCS; 2020-05-09)
PROC: 0DJ08ZZ Inspection of Upper Intestinal Tract, Via Natural or Artificial Opening Endoscopic (ICD-10-PCS; 2020-05-10)
PROC: 30233N1 Transfusion of Nonautologous Red Blood Cells into Peripheral Vein, Percutaneous Approach (ICD-10-PCS; 2020-05-10)
DX: U07.1 COVID-19 (principal); J12.89 Other viral pneumonia; E44.0 Moderate protein-calorie malnutrition; E87.6 Hypokalemia; D72.810 Lymphocytopenia; D64.9 Anemia, unspecified; E87.5 Hyperkalemia; J80 Acute respiratory distress syndrome; D68.69 Other thrombophilia; E87.1 Hypo-osmolality and hyponatremia; J95.851 Ventilator associated pneumonia; N17.9 Acute kidney failure, unspecified; D69.6 Thrombocytopenia, unspecified; J98.2 Interstitial emphysema; R79.82 Elevated C-reactive protein (CRP); R79.89 Other specified abnormal findings of blood chemistry; N17.0 Acute kidney failure with tubular necrosis; I12.9 Hypertensive chronic kidney disease with stage 1 through stage 4 chronic kidney disease, or unspecified chronic kidney disease; E11.65 Type 2 diabetes mellitus with hyperglycemia; E11.22 Type 2 diabetes mellitus with diabetic chronic kidney disease; N18.9 Chronic kidney disease, unspecified; G93.40 Encephalopathy, unspecified; K31.9 Disease of stomach and duodenum, unspecified; I95.9 Hypotension, unspecified; Z93.1 Gastrostomy status; Z99.11 Dependence on respirator [ventilator] status; Z68.20 Body mass index [BMI] 20.0-20.9, adult; Z79.899 Other long term (current) drug therapy; Z85.828 Personal history of other malignant neoplasm of skin
CPT/HCPCS: 36600; 70450; 76770; 78606; 82271; 82570; 82728; 82805; 83615; 83735; 84100; 84132; 84145; 84156; 84300; 84540; 85379; 85651; 86140; 86850; 86900; 86901; 86923; 86927; 87040; 87070; 87086; 87205; 87426; 87449; 87804; 87899; 93005; 94002; 94003; 94640; A9521; C9113; G0238; G0378; J0131; J0330; J0456; J0461; J0690; J0692; J0696; J0713; J0878; J1100; J1265; J1644; J1815; J2060; J2250; J2270; J2370; J2704; J3010; J3490; J7030; J7040; J7050; J7060; J7120; J8540; P9016; P9035; 36415-L1; 36415-TC; 71045-TC; J7613; U0003